=== PATIENT | female | born 1930 | race Caucasian/White ===

== ENCOUNTER 2017-04-13 15:47 | Inpatient (IN) | payer MEDICARE, BC ==
--- NOTE | 2017-04-13 16:40 | PCM.HP ---
H&P History of Present Illness - General Date of Service: 04/13/17 Admit Problem/Dx: Massive lower extremity edema Source of Information: Patient, Provider (Dr. Zaragoza) - History of Present Illness Initial Comments - Free Text/Narative: The patient is an 86-year-old lady with a history of cardiomyopathy with ejection fraction of 30-35%, grade 2 diastolic dysfunction. The patient also has sick sinus syndrome and pacemaker was suggested but the patient did not want pacemaker, angiogram or any other cardiac work up. The patient presented to the primary care's office on 13 April. About 2-3 month history of progressive lower extremity swelling. The swelling is so bad that it is up to her chest wall. It is associated with mild shortness of breath. She denies chest pain. No cough. She has been taking Lasix 20 mg daily. She is not using any compression therapy. - Related Data Allergies/Adverse Reactions: Allergies Allergy/AdvReac Type Severity Reaction Status Date / Time calcium Allergy Cannot Verified 04/13/17 16:13 Remember ezetimibe Allergy Cannot Verified 04/13/17 16:13 Remember hydrochlorothiazide Allergy Dizziness Verified 04/13/17 16:13 simvastatin Allergy Cannot Verified 04/13/17 16:13 Remember Home Medications: Home Meds Multivitamin [Multivitamins] 1 tab PO DAILY 11/09/15 [History] Psyllium [Metamucil] 0.52 gm PO DAILY 11/09/15 [History] Valsartan [Diovan] 320 mg PO DAILY 11/09/15 [History] Warfarin [Coumadin] 6 mg PO DAILY 11/09/15 [History] amLODIPine [Norvasc] 2.5 mg PO DAILY 11/09/15 [History] Furosemide [Lasix] 20 mg PO DAILY 04/13/17 [History] Non-Formulary Medication [NF Drug] 1 cap PO DAILY 04/13/17 [History] Non-Formulary Medication [NF Drug] 1 cap PO DAILY 04/13/17 [History] Non-Formulary Medication [NF Drug] 1 tab PO BEDTIME 04/13/17 [History] Non-Formulary Medication [NF Drug] 1 tab PO DAILY 04/13/17 [History] Non-Formulary Medication [NF Drug] 2 cap PO BID 04/13/17 [History] Non-Formulary Medication [NF Drug] 2 cap PO DAILY 04/13/17 [History] Non-Formulary Medication [NF Drug] 2 tab PO DAILY 04/13/17 [History] Ubidecarenone [Coenzyme Q-10] 30 mg PO DAILY 04/13/17 [History] Warfarin [Coumadin] 9 mg PO DAILY 04/13/17 [History] Past Medical History HEENT History: Reports: Cataract Cardiovascular History: Reports: Afib, High Cholesterol, Hypertension Respiratory History: Reports: None Gastrointestinal History: Reports: Bowel Obstruction, Diverticulosis, Hemorrhoids [employer] History: Musculoskeletal History: Reports: Arthritis Neurological History: Reports: None Psychiatric History: Reports: Anxiety Endocrine/Metabolic History: Reports: Diabetes, Type II Hematologic History: Reports: None Immunologic History: Reports: None Oncologic (Cancer) History: Reports: Uterine Dermatologic History: Reports: None - Infectious Disease History Infectious Disease History: Reports: Chicken Pox, Measles, Mumps, Rubella - Past Surgical History Oncologic Surgical History: Reports: Biopsy of Breast Social & Family History - Family History Cardiac: Reports: Arrhythmia, High Cholesterol, [place] Neurological: Reports: TIA Endocrine/Metabolic: Reports: Diabetes, type II Oncologic: Reports: Breast, Thyroid, Other (See Below) Other Oncologic Family History: "STOMACH CANCER" - Tobacco Use Smoking Status *Q: Never Smoker Second Hand Smoke Exposure: No - Caffeine Use Caffeine Use: Reports: Coffee - Recreational Drug Use Recreational Drug Use: No Drug Use in Last 12 Months: No H&P Review of Systems - Review of Systems: Review Of Systems: See Below General: Denies: Fever Pulmonary: Reports: Shortness of Breath (Mild, worse with activity) Cardiovascular: Reports: Edema (Massive, up to chest wall). Denies: Chest Pain Gastrointestinal: Denies: Abdominal Pain Psychiatric: Denies: Confusion Exam - Exam Exam: See Below - Vital Signs Vital Signs: Last Vital Signs Temp 36.9 C 04/13/17 16:14 Pulse 81 04/13/17 16:14 Resp 22 H 04/13/17 16:14 BP 140/85 04/13/17 16:14 Pulse Ox 95 04/13/17 16:14 Weight: 92.533 kg - Exam General: Alert, Oriented HEENT: EOMI Neck: Supple Lungs: Normal Respiratory Effort, Decreased Breath Sounds Cardiovascular: Irregular Rhythm GI/Abdominal Exam: Normal Bowel Sounds, Soft, Non-Tender Extremities: Pedal Edema (Massive edema up to chest) Skin: Warm Neuro Extensive - Mental Status: Alert, Oriented x3, Normal Mood/Affect - Patient Data Lab Results Last 24 hrs: Echo 01/02/17 Interpretation Summary Left ventricular systolic function is moderately reduced. Ejection Fraction = 30-35%. There is Grade II diastolic dysfunction. There is moderate global hypokinesis of the left ventricle. The right ventricular systolic function is mildly reduced. The left atrium is severely dilated. The right atrium is severely dilated. There is mild to moderate mitral regurgitation. There is severe tricuspid regurgitation. There is moderate to severe pulmonary hypertension. Right ventricular systolic pressure is 62 mmHg. Mild to moderate valvular aortic stenosis. Mild aortic regurgitation. Trivial pericardial effusion. Sodium 131, potassium 4.4, bicarbonate 28.5, creatinine 0.9. Total protein 6.8 Prilosec 5.2 hemoglobin 10.3 platelets 265 CXR DATE OF STUDY: April 13, 2017 PA AND LATERAL CHEST HISTORY: An 86-year-old, hypertensive, 207 pounds female with chronic atrial fibrillation and fluid retention complaining of shortness of breath. INTERPRETATION: Abnormal. Large heart with bibasilar dependent large subpulmonic pleural fluid collections when compared to August 2012, exam. No cephalization of vascular flow or alveolar edema, but cannot exclude underlying lower lobe atelectasis or even infiltrate particularly on the left. CONCLUSION: Abnormal exam. *Q Meaningful Use (ADM) - VTE *Q VTE Criteria *Q: - Stroke *Q Stroke Criteria *Q: - AMI *Q AMI Criteria *Q: - Problem List (1) Edema SNOMED Code(s): 654787331 ICD Code: R60.9 - EDEMA, UNSPECIFIED Status: Acute Current Visit: Yes (2) Afib SNOMED Code(s): 75006322 ICD Code: I48.91 - UNSPECIFIED ATRIAL FIBRILLATION Status: Acute Current Visit: Yes (3) CHF (congestive heart failure) SNOMED Code(s): 33765512 ICD Code: I50.9 - HEART FAILURE, UNSPECIFIED Status: Acute Current Visit : Yes Problem List Initiated/Reviewed/Updated: Yes Orders Last 24hrs: Active Orders 24 hr Category Date Time Status OT Evaluation and Treatment [CONS] Routine Cons 04/13/17 16:30 Ordered BASIC METABOLIC PANEL,BMP [CHEM] AM Lab 04/14/17 05:15 Ordered CBC WITH AUTO DIFF [HEME] AM Lab 04/14/17 05:15 Ordered INR,PT,PROTHROMBIN TIME [COAG] AM Lab 04/15/17 05:11 Ordered INR,PT,PROTHROMBIN TIME [COAG] AM Lab 04/16/17 05:11 Ordered INR,PT,PROTHROMBIN TIME [COAG] AM Lab 04/17/17 05:11 Ordered INR,PT,PROTHROMBIN TIME [COAG] AM Lab 04/18/17 05:11 Ordered INR,PT,PROTHROMBIN TIME [COAG] AM Lab 04/19/17 05:11 Ordered INR,PT,PROTHROMBIN TIME [COAG] AM Lab 04/20/17 05:11 Ordered Furosemide [Lasix] Med 04/13/17 17:00 Ordered 20 mg IVPUSH TID Multivitamin [Multivitamins] Med 04/14/17 09:00 Ordered 1 tab PO DAILY Valsartan [Diovan] Med 04/14/17 09:00 Ordered 320 mg PO DAILY Medication Orders Furosemide (Lasix) 20 mg IVPUSH TID [facility] Non-Formulary Medication (Multivitamin [Multivitamins]) 1 tab PO DAILY [facility] Non-Formulary Medication (Valsartan [Diovan]) 320 mg PO DAILY [facility] Assessment/Plan Comment:: 86-year-old lady with a history of sick sinus syndrome, atrial fibrillation. The patient has a history of ejection fraction 30-35% with good grade 2 diastolic dysfunction. Presented with about 30 pounds of weight gain and massive lower body edema. 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 I will stop the patient's Norvasc. Increase the patient's Lasix. Monitor electrolytes, replace them as needed Continue ARB will Not start beta evelio given to sick sinus syndrome Use compression therapy of lower extremities, consult occupational therapy for lymphedema wraps #2 hypertension Continue valsartan Increased diuretics Consider hydralazine and/or spironolactone if not well controlled #3 atrial fibrillation with sick sinus syndrome Hold off on rate control medications Continue anticoagulation with Coumadin Monitor INR daily, target INR will be 2-3 #4 DVT prophylaxis with full dose anticoagulation with Coumadin d/w dr. Zaragoza
[2017-04-13] MEDS: Furosemide 20 MG/2 ML VIAL IVPUSH SCH ×2 (16:48→20:51)
[2017-04-13] MEDS ORDERED: Zolpidem 5 MG Tab PO PRN (17:07)
[2017-04-13] MEDS ORDERED: Acetaminophen 325 MG Tab PO PRN (17:07)
[2017-04-13] MEDS: Sodium Chloride 0.9% 10 ML Syringe FLUSH PRN (20:51)
[2017-04-14 06:56] LABS: CHLORIDE,CL 98 mmol/L (101-111); SODIUM,NA 131 mmol/L (135-145)
[2017-04-14] MEDS: Insulin Aspart 100 Units/ML 3 ML Pen SUBCUT SCH ×3 (09:00→17:01)
[2017-04-14] MEDS: Psyllium 0.52 GM Cap PO SCH (09:40)
[2017-04-14] MEDS: Multivitamins,Therapeutic Tab PO SCH (09:40)
[2017-04-14] MEDS: Furosemide 20 MG/2 ML VIAL IVPUSH SCH ×3 (09:41→20:33)
--- NOTE | 2017-04-14 10:50 | PCM.PN ---
- General Info Date of Service: 04/14/17 Admission Dx/Problem (Free Text): Massive lower extremity edema Functional Status: Reports: Pain Controlled, Tolerating Diet, Ambulating, Urinating - Review of Systems General: Denies: Fever Pulmonary: Reports: Shortness of Breath (mild with activity) Cardiovascular: Denies: Chest Pain Gastrointestinal: Denies: Abdominal Pain Neurological: Denies: Confusion - Patient Data Vitals - Most Recent: Last Vital Signs Temp 37.3 C 04/14/17 04:00 Pulse 75 04/14/17 04:00 Resp 20 04/14/17 04:00 BP 115/74 04/14/17 09:38 Pulse Ox 96 04/14/17 04:00 Weight - Most Recent: 89.414 kg I&O - Last 24 Hours: Intake & Output 04/13/17 04/14/17 04/14/17 22:59 06:59 14:59 Intake Total 370 Output Total 1800 1100 Balance -1430 -1100 Lab Results Last 24 Hours: Laboratory Results - last 24 hr 04/13/17 04/14/17 04/14/17 Range/Units 21:08 06:05 06:05 WBC 3.7 L (5.0-10.0) 10^3/uL RBC 3.53 L (4.2-5.4) 10^6/uL Hgb 9.4 L (12.0-16.0) g/dL Hct 28.5 L (37.0-47.0) % MCV 80.7 (80-100) fL MCH 26.6 L (27.0-34.0) pg MCHC 33.0 (33.0-35.0) g/dL Plt Count 223 (150-450) 10^3/uL Neut % (Auto) 62.3 (42.2-75.2) % Lymph % (Auto) 17.8 L (20.5-50.1) % [place] % (Auto) 15.9 H (2-8) % Eos % (Auto) 3.2 H (1.0-3.0) % Baso % (Auto) 0.8 (0.0-1.0) % PT (9.0-12.0) SEC INR (0.9-1.2) Sodium 131 L (135-145) mmol/L Potassium 4.1 (3.6-5.0) mmol/L Chloride 98 L (101-111) mmol/L Carbon Dioxide 26.0 (21.0-31.0) mmol/L Anion Gap 11.1 BUN 16 (7-18) mg/dL Creatinine 0.8 (0.6-1.3) mg/dL Est Cr Clr Drug Dosing 40.98 mL/min Estimated GFR (MDRD) > 60 Glucose 91 (74-105) mg/dL POC Glucose 118 H (83-110) mg/dl Calcium 8.6 (8.4-10.2) mg/dl Phosphorus 4.1 (2.5-4.6) mg/dL Magnesium 2.0 (1.8-2.5) mg/dL 04/14/17 04/14/17 Range/Units 06:05 08:04 WBC (5.0-10.0) 10^3/uL RBC (4.2-5.4) 10^6/uL Hgb (12.0-16.0) g/dL Hct (37.0-47.0) % MCV (80-100) fL MCH (27.0-34.0) pg MCHC (33.0-35.0) g/dL Plt Count (150-450) 10^3/uL Neut % (Auto) (42.2-75.2) % Lymph % (Auto) (20.5-50.1) % [place] % (Auto) (2-8) % Eos % (Auto) (1.0-3.0) % Baso % (Auto) (0.0-1.0) % PT 24.6 H (9.0-12.0) SEC INR 2.4 H (0.9-1.2) Sodium (135-145) mmol/L Potassium (3.6-5.0) mmol/L Chloride (101-111) mmol/L Carbon Dioxide (21.0-31.0) mmol/L Anion Gap BUN (7-18) mg/dL Creatinine (0.6-1.3) mg/dL Est Cr Clr Drug Dosing mL/min Estimated GFR (MDRD) Glucose (74-105) mg/dL POC Glucose 98 (83-110) mg/dl Calcium (8.4-10.2) mg/dl Phosphorus (2.5-4.6) mg/dL Magnesium (1.8-2.5) mg/dL Med Orders - Current: Current Medications Acetaminophen (Tylenol) 650 mg PO Q4H PRN PRN Reason: Pain (Mild 1-3)/fever Furosemide (Lasix) 20 mg IVPUSH TID [facility] Last Admin: 04/14/17 09:41 Dose: 20 mg Insulin Aspart (Novolog) 0 unit SUBCUT TIDAC [facility] PRN Reason: Protocol Last Admin: 04/14/17 09:00 Dose: Not Given Multivitamins (Thera) 1 each PO DAILY [facility] Last Admin: 04/14/17 09:40 Dose: 1 each Psyllium Hydrophilic Mucilloid (Metamucil) 0.52 gm PO DAILY [facility] Last Admin: 04/14/17 09:40 Dose: 0.52 gm Sodium Chloride (Saline Flush) 10 ml FLUSH ASDIRECTED PRN PRN Reason: Keep Vein Open Last Admin: 04/13/17 20:51 Dose: 10 ml Valsartan (Diovan) 320 mg PO DAILY [facility] Last Admin: 04/14/17 09:38 Dose: 320 mg Warfarin Sodium (Pharmacy To Dose - Warfarin) 1 dose .XX ASDIRECTED [facility] Zolpidem Tartrate (Ambien) 5 mg PO BEDTIME PRN PRN Reason: Sleep - Exam General: Alert Neck: Supple Lungs: Clear to Auscultation, Normal Respiratory Effort GI/Abdominal Exam: Normal Bowel Sounds, Soft, Non-Tender Extremities: Pedal Edema (massive upto chest wall) Neurological: No New Focal Deficit Psy/Mental Status: Alert, Normal Affect, Normal Mood - Problem List & Annotations (1) Edema SNOMED Code(s): 834542150 Code(s): R60.9 - EDEMA, UNSPECIFIED Status: Acute Current Visit: Yes Qualifiers: Edema type: localized Qualified Code(s): R60.0 - Localized edema (2) Afib SNOMED Code(s): 57900357 Code(s): I48.91 - UNSPECIFIED ATRIAL FIBRILLATION Status: Acute Current Visit: Yes Qualifiers: Atrial fibrillation type: persistent Qualified Code(s): I48.1 - Persistent atrial fibrillation (3) CHF (congestive heart failure) SNOMED Code(s): 17710244 Code(s): I50.9 - HEART FAILURE, UNSPECIFIED Status: Acute Current Visit: Yes Qualifiers: Heart failure chronicity: acute on chronic - Problem List Review Problem List Initiated/Reviewed/Updated: Yes - My Orders Last 24 Hours: My Active Orders 04/13/17 16:30 OT Evaluation and Treatment [CONS] Routine 04/13/17 17:00 Furosemide [Lasix] 20 mg IVPUSH TID Warfarin Pharmacy to Dose [Pharmacy to Dose - Warfarin] 1 dose .XX ASDIRECTED 04/13/17 17:07 Up With Assistance [RC] ASDIRECTED Acetaminophen [Tylenol] 650 mg PO Q4H PRN Sodium Chloride 0.9% [Saline Flush] 10 ml FLUSH ASDIRECTED PRN Zolpidem [Ambien] 5 mg PO BEDTIME PRN Peripheral IV Insertion Adult [OM.PC] Routine Saline Lock Insert [OM.PC] Routine Resuscitation Status Routine 04/13/17 17:08 Patient Status [ADT] Routine Oxygen Therapy [RC] PRN VTE/DVT Education [RC] PER UNIT ROUTINE Vital Signs [RC] 04,08,12,16,20,00 04/13/17 17:09 Antiembolic Devices [RC] 08,20 Peripheral IV Care [RC] 08,20 Antiembolic Hose [OM.PC] Per Unit Routine 04/13/17 19:30 Glucose [Blood Glucose Check, Bedside] [RC] QIDACANDBED 04/13/17 Dinner 2 Gram Sodium Diet [DIET] 04/14/17 08:00 Insulin Aspart [NovoLOG] See Protocol SUBCUT TIDAC 04/14/17 09:00 Multivitamins,Therapeutic [Thera] 1 each PO DAILY Psyllium [Metamucil] 0.52 gm PO DAILY Valsartan [Diovan] 320 mg PO DAILY 04/15/17 05:11 INR,PT,PROTHROMBIN TIME [COAG] AM 04/15/17 05:15 BASIC METABOLIC PANEL,BMP [CHEM] AM CBC WITH AUTO DIFF [HEME] AM 04/16/17 05:11 INR,PT,PROTHROMBIN TIME [COAG] AM 04/17/17 05:11 INR,PT,PROTHROMBIN TIME [COAG] AM 04/18/17 05:11 INR,PT,PROTHROMBIN TIME [COAG] AM 04/19/17 05:11 INR,PT,PROTHROMBIN TIME [COAG] AM 04/20/17 05:11 INR,PT,PROTHROMBIN TIME [COAG] AM - Plan Plan:: 86-year-old lady with a history of sick sinus syndrome, atrial fibrillation. The patient has a history of ejection fraction 30-35% with good grade 2 diastolic dysfunction. Presented with about 30 pounds of weight gain and massive lower body edema. 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 stopped Norvasc. Increased the patient's Lasix. Monitor electrolytes, replace them as needed Continue ARB will Not start beta evelio given to sick sinus syndrome Use compression therapy of lower extremities #2 hypertension Continue valsartan Increased diuretics Consider hydralazine and/or spironolactone if not well controlled #3 atrial fibrillation with sick sinus syndrome Hold off on rate control medications Continue anticoagulation with Coumadin Monitor INR daily, target INR will be 2-3 #4 DVT prophylaxis with full dose anticoagulation with Coumadin
[2017-04-14] MEDS ORDERED: Warfarin 5 MG Tab PO ONE (14:00)
[2017-04-14] MEDS ORDERED: Warfarin 2 MG Tab PO ONE (14:00)
[2017-04-14] MEDS: DIGOXIN 250 MCG PO SCH (20:33)
[2017-04-15] MEDS: Insulin Aspart 100 Units/ML 3 ML Pen SUBCUT SCH ×3 (09:18→17:24)
[2017-04-15] MEDS: Psyllium 0.52 GM Cap PO SCH (09:21)
[2017-04-15] MEDS: Multivitamins,Therapeutic Tab PO SCH (09:21)
[2017-04-15] MEDS: DIGOXIN 250 MCG PO SCH (09:22)
[2017-04-15] MEDS: Furosemide 20 MG/2 ML VIAL IVPUSH SCH ×3 (09:24→20:04)
[2017-04-15] MEDS: Sodium Chloride 0.9% 10 ML Syringe FLUSH PRN ×2 (09:26→14:20)
--- NOTE | 2017-04-15 10:40 | PCM.PN ---
- General Info Date of Service: 04/15/17 Admission Dx/Problem (Free Text): Massive lower extremity edema Subjective Update: Has good urine output Losing weight but continues to have significant edema. No associated shortness of breath. The edema started the weeks before admission. No fever, no chest pain. Functional Status: Reports: Pain Controlled - Review of Systems General: Denies: Fever, Weakness Pulmonary: Denies: Shortness of Breath Cardiovascular: Denies: Chest Pain Gastrointestinal: Denies: Abdominal Pain Genitourinary: Denies: Dysuria - Patient Data Vitals - Most Recent: Last Vital Signs Temp 36.7 C 04/15/17 08:10 Pulse 87 04/15/17 08:10 Resp 20 04/15/17 08:10 BP 120/62 04/15/17 09:23 Pulse Ox 97 04/15/17 08:10 Weight - Most Recent: 85.389 kg I&O - Last 24 Hours: Intake & Output 04/14/17 04/15/17 04/15/17 22:59 06:59 14:59 Intake Total 125 200 Output Total 2000 1050 400 Balance -1875 -850 -400 Lab Results Last 24 Hours: Laboratory Results - last 24 hr 04/14/17 04/14/17 04/14/17 Range/Units 11:29 16:47 21:13 WBC (5.0-10.0) 10^3/uL RBC (4.2-5.4) 10^6/uL Hgb (12.0-16.0) g/dL Hct (37.0-47.0) % MCV (80-100) fL MCH (27.0-34.0) pg MCHC (33.0-35.0) g/dL Plt Count (150-450) 10^3/uL Neut % (Auto) (42.2-75.2) % Lymph % (Auto) (20.5-50.1) % [place] % (Auto) (2-8) % Eos % (Auto) (1.0-3.0) % Baso % (Auto) (0.0-1.0) % PT (9.0-12.0) SEC INR (0.9-1.2) Sodium (135-145) mmol/L Potassium (3.6-5.0) mmol/L Chloride (101-111) mmol/L Carbon Dioxide (21.0-31.0) mmol/L Anion Gap BUN (7-18) mg/dL Creatinine (0.6-1.3) mg/dL Est Cr Clr Drug Dosing mL/min Estimated GFR (MDRD) Glucose (74-105) mg/dL POC Glucose 101 103 133 H (83-110) mg/dl Calcium (8.4-10.2) mg/dl 04/15/17 04/15/17 04/15/17 Range/Units 05:35 05:35 05:35 WBC 3.4 L (5.0-10.0) 10^3/uL RBC 3.51 L (4.2-5.4) 10^6/uL Hgb 9.4 L (12.0-16.0) g/dL Hct 28.4 L (37.0-47.0) % MCV 80.9 (80-100) fL MCH 26.8 L (27.0-34.0) pg MCHC 33.1 (33.0-35.0) g/dL Plt Count 234 (150-450) 10^3/uL Neut % (Auto) 58.4 (42.2-75.2) % Lymph % (Auto) 21.8 (20.5-50.1) % [place] % (Auto) 15.4 H (2-8) % Eos % (Auto) 3.8 H (1.0-3.0) % Baso % (Auto) 0.6 (0.0-1.0) % PT 25.9 H (9.0-12.0) SEC INR 2.6 H (0.9-1.2) Sodium 134 L (135-145) mmol/L Potassium 3.7 (3.6-5.0) mmol/L Chloride 97 L (101-111) mmol/L Carbon Dioxide 29.0 (21.0-31.0) mmol/L Anion Gap 11.7 BUN 19 H (7-18) mg/dL Creatinine 0.9 (0.6-1.3) mg/dL Est Cr Clr Drug Dosing 36.43 mL/min Estimated GFR (MDRD) 59 Glucose 93 (74-105) mg/dL POC Glucose (83-110) mg/dl Calcium 8.6 (8.4-10.2) mg/dl 04/15/17 Range/Units 07:39 WBC (5.0-10.0) 10^3/uL RBC (4.2-5.4) 10^6/uL Hgb (12.0-16.0) g/dL Hct (37.0-47.0) % MCV (80-100) fL MCH (27.0-34.0) pg MCHC (33.0-35.0) g/dL Plt Count (150-450) 10^3/uL Neut % (Auto) (42.2-75.2) % Lymph % (Auto) (20.5-50.1) % [place] % (Auto) (2-8) % Eos % (Auto) (1.0-3.0) % Baso % (Auto) (0.0-1.0) % PT (9.0-12.0) SEC INR (0.9-1.2) Sodium (135-145) mmol/L Potassium (3.6-5.0) mmol/L Chloride (101-111) mmol/L Carbon Dioxide (21.0-31.0) mmol/L Anion Gap BUN (7-18) mg/dL Creatinine (0.6-1.3) mg/dL Est Cr Clr Drug Dosing mL/min Estimated GFR (MDRD) Glucose (74-105) mg/dL POC Glucose 108 (83-110) mg/dl Calcium (8.4-10.2) mg/dl Med Orders - Current: Current Medications Acetaminophen (Tylenol) 650 mg PO Q4H PRN PRN Reason: Pain (Mild 1-3)/fever Furosemide (Lasix) 20 mg IVPUSH TID [facility] Last Admin: 04/15/17 09:24 Dose: 20 mg Insulin Aspart (Novolog) 0 unit SUBCUT TIDAC [facility] PRN Reason: Protocol Last Admin: 04/15/17 09:18 Dose: Not Given Multivitamins (Thera) 1 each PO DAILY [facility] Last Admin: 04/15/17 09:21 Dose: 1 each Psyllium Hydrophilic Mucilloid (Metamucil) 0.52 gm PO DAILY [facility] Last Admin: 04/15/17 09:21 Dose: 0.52 gm Sodium Chloride (Saline Flush) 10 ml FLUSH ASDIRECTED PRN PRN Reason: Keep Vein Open Last Admin: 04/15/17 09:26 Dose: 10 ml Valsartan (Diovan) 320 mg PO DAILY [facility] Last Admin: 04/15/17 09:23 Dose: 320 mg Warfarin Sodium (Pharmacy To Dose - Warfarin) 1 dose .XX ASDIRECTED [facility] Warfarin Sodium (Coumadin) 5 mg PO DAILY@1400 [facility] Stop: 04/15/17 14:01 Warfarin Sodium (Coumadin) 4 mg PO DAILY@1400 [facility] Stop: 04/15/17 14:01 Zolpidem Tartrate (Ambien) 5 mg PO BEDTIME PRN PRN Reason: Sleep Discontinued Medications Digoxin (Lanoxin) 250 mcg PO DAILY [facility] Last Admin: 04/15/17 09:22 Dose: 250 mcg Warfarin Sodium (Coumadin) 5 mg PO ONETIME ONE Stop: 04/14/17 14:01 Last Admin: 04/14/17 14:32 Dose: 5 mg Warfarin Sodium (Coumadin) 4 mg PO ONETIME ONE Stop: 04/14/17 14:01 Last Admin: 04/14/17 14:32 Dose: 4 mg - Exam General: Alert, Oriented Neck: Supple Lungs: Clear to Auscultation, Normal Respiratory Effort Cardiovascular: Regular Rate, Regular Rhythm GI/Abdominal Exam: Normal Bowel Sounds, Soft, Non-Tender Extremities: Pedal Edema (up to mid chest) Skin: Warm Neurological: No New Focal Deficit Psy/Mental Status: Alert, Normal Affect, Normal Mood - Problem List & Annotations (1) Edema SNOMED Code(s): 505395394 Code(s): R60.9 - EDEMA, UNSPECIFIED Status: Acute Current Visit: Yes Qualifiers: Edema type: localized Qualified Code(s): R60.0 - Localized edema (2) Afib SNOMED Code(s): 76865118 Code(s): I48.91 - UNSPECIFIED ATRIAL FIBRILLATION Status: Acute Current Visit: Yes Qualifiers: Atrial fibrillation type: persistent Qualified Code(s): I48.1 - Persistent atrial fibrillation (3) CHF (congestive heart failure) SNOMED Code(s): 42312698 Code(s): I50.9 - HEART FAILURE, UNSPECIFIED Status: Acute Current Visit: Yes Qualifiers: Heart failure chronicity: acute on chronic - Problem List Review Problem List Initiated/Reviewed/Updated: Yes - My Orders Last 24 Hours: My Active Orders 04/15/17 14:00 Warfarin [Coumadin] 4 mg PO DAILY@1400 Warfarin [Coumadin] 5 mg PO DAILY@1400 04/16/17 05:11 INR,PT,PROTHROMBIN TIME [COAG] AM 04/16/17 05:15 BASIC METABOLIC PANEL,BMP [CHEM] AM CBC WITH AUTO DIFF [HEME] AM 04/17/17 05:11 INR,PT,PROTHROMBIN TIME [COAG] AM 04/18/17 05:11 INR,PT,PROTHROMBIN TIME [COAG] AM 04/19/17 05:11 INR,PT,PROTHROMBIN TIME [COAG] AM 04/20/17 05:11 INR,PT,PROTHROMBIN TIME [COAG] AM - Plan Plan:: 86-year-old lady with a history of sick sinus syndrome, atrial fibrillation. The patient has a history of ejection fraction 30-35% with good grade 2 diastolic dysfunction. Presented with about 30 pounds of weight gain and massive lower body edema. 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 stopped Norvasc. Increased the patient's Lasix. Monitor electrolytes, replace them as needed Renal function is stable despite diuretics Continue ARB will Not start beta evelio given to sick sinus syndrome Will not use digoxin given the history of bradycardia Use compression therapy of lower extremities #2 hypertension Continue valsartan Increased diuretics Consider hydralazine and/or spironolactone if not well controlled #3 atrial fibrillation with sick sinus syndrome Hold off on rate control medications Continue anticoagulation with Coumadin Monitor INR daily, target INR will be 2-3 #4 DVT prophylaxis with full dose anticoagulation with Coumadin
[2017-04-15] MEDS ORDERED: Warfarin 2 MG Tab PO SCH (14:00)
[2017-04-15] MEDS ORDERED: Warfarin 5 MG Tab PO SCH (14:00)
[2017-04-15] MEDS ORDERED: Albuterol/Ipratropium 3.0-0.5 MG/3 ML Neb Soln NEB PRN (21:19)
[2017-04-16] MEDS: Insulin Aspart 100 Units/ML 3 ML Pen SUBCUT SCH ×3 (08:23→16:53)
[2017-04-16] MEDS: Multivitamins,Therapeutic Tab PO SCH (08:55)
[2017-04-16] MEDS: Psyllium 0.52 GM Cap PO SCH (08:55)
[2017-04-16] MEDS: Furosemide 20 MG/2 ML VIAL IVPUSH SCH ×3 (08:56→20:00)
[2017-04-16] MEDS: Sodium Chloride 0.9% 10 ML Syringe FLUSH PRN ×2 (08:59→14:13)
--- NOTE | 2017-04-16 11:38 | PCM.PN ---
- General Info Date of Service: 04/16/17 Admission Dx/Problem (Free Text): Massive lower extremity edema Subjective Update: Has good urine output Losing weight but still continues to have significant edema. No associated shortness of breath. The edema started weeks before admission. No associated fever, no chest pain. Functional Status: Reports: Pain Controlled - Review of Systems General: Denies: Fever Pulmonary: Denies: Shortness of Breath Cardiovascular: Denies: Chest Pain Gastrointestinal: Denies: Abdominal Pain Genitourinary: Reports: Frequency. Denies: Dysuria Neurological: Denies: Confusion - Patient Data Vitals - Most Recent: Last Vital Signs Temp 37.4 C 04/16/17 08:00 Pulse 65 04/16/17 08:00 Resp 20 04/16/17 08:00 BP 124/74 04/16/17 08:56 Pulse Ox 99 04/16/17 08:00 Weight - Most Recent: 82.554 kg I&O - Last 24 Hours: Intake & Output 04/15/17 04/16/17 04/16/17 21:59 06:59 14:59 Intake Total 360 Output Total 200 Balance 160 Lab Results Last 24 Hours: Laboratory Results - last 24 hr 04/15/17 04/15/17 04/15/17 Range/Units 11:48 17:03 21:15 WBC (5.0-10.0) 10^3/uL RBC (4.2-5.4) 10^6/uL Hgb (12.0-16.0) g/dL Hct (37.0-47.0) % MCV (80-100) fL MCH (27.0-34.0) pg MCHC (33.0-35.0) g/dL Plt Count (150-450) 10^3/uL Neut % (Auto) (42.2-75.2) % Lymph % (Auto) (20.5-50.1) % Hand % (Auto) (2-8) % Eos % (Auto) (1.0-3.0) % Baso % (Auto) (0.0-1.0) % PT (9.0-12.0) SEC INR (0.9-1.2) Sodium (135-145) mmol/L Potassium (3.6-5.0) mmol/L Chloride (101-111) mmol/L Carbon Dioxide (21.0-31.0) mmol/L Anion Gap BUN (7-18) mg/dL Creatinine (0.6-1.3) mg/dL Est Cr Clr Drug Dosing mL/min Estimated GFR (MDRD) Glucose (74-105) mg/dL POC Glucose 93 115 H 104 (83-110) mg/dl Calcium (8.4-10.2) mg/dl 04/16/17 04/16/17 04/16/17 Range/Units 05:40 05:40 05:40 WBC 3.6 L (5.0-10.0) 10^3/uL RBC 3.38 L (4.2-5.4) 10^6/uL Hgb 9.1 L (12.0-16.0) g/dL Hct 27.2 L (37.0-47.0) % MCV 80.5 (80-100) fL MCH 26.9 L (27.0-34.0) pg MCHC 33.5 (33.0-35.0) g/dL Plt Count 234 (150-450) 10^3/uL Neut % (Auto) 53.3 (42.2-75.2) % Lymph % (Auto) 24.6 (20.5-50.1) % Hand % (Auto) 16.6 H (2-8) % Eos % (Auto) 4.7 H (1.0-3.0) % Baso % (Auto) 0.8 (0.0-1.0) % PT 27.0 H (9.0-12.0) SEC INR 2.7 H (0.9-1.2) Sodium 133 L (135-145) mmol/L Potassium 3.4 L (3.6-5.0) mmol/L Chloride 96 L (101-111) mmol/L Carbon Dioxide 29.0 (21.0-31.0) mmol/L Anion Gap 11.4 BUN 21 H (7-18) mg/dL Creatinine 0.9 (0.6-1.3) mg/dL Est Cr Clr Drug Dosing 36.43 mL/min Estimated GFR (MDRD) 59 Glucose 90 (74-105) mg/dL POC Glucose (83-110) mg/dl Calcium 8.5 (8.4-10.2) mg/dl 03/11/18 Range/Units 07:01 WBC (5.0-10.0) 10^3/uL RBC (4.2-5.4) 10^6/uL Hgb (12.0-16.0) g/dL Hct (37.0-47.0) % MCV (80-100) fL MCH (27.0-34.0) pg MCHC (33.0-35.0) g/dL Plt Count (150-450) 10^3/uL Neut % (Auto) (42.2-75.2) % Lymph % (Auto) (20.5-50.1) % Hand % (Auto) (2-8) % Eos % (Auto) (1.0-3.0) % Baso % (Auto) (0.0-1.0) % PT (9.0-12.0) SEC INR (0.9-1.2) Sodium (135-145) mmol/L Potassium (3.6-5.0) mmol/L Chloride (101-111) mmol/L Carbon Dioxide (21.0-31.0) mmol/L Anion Gap BUN (7-18) mg/dL Creatinine (0.6-1.3) mg/dL Est Cr Clr Drug Dosing mL/min Estimated GFR (MDRD) Glucose (74-105) mg/dL POC Glucose 101 (83-110) mg/dl Calcium (8.4-10.2) mg/dl Med Orders - Current: Current Medications Acetaminophen (Tylenol) 650 mg PO Q4H PRN PRN Reason: Pain (Mild 1-3)/fever Albuterol/Ipratropium (Duoneb 3.0-0.5 Mg/3 Ml) 3 ml NEB Q6HRRT PRN PRN Reason: sob Last Admin: 04/15/17 21:32 Dose: 3 ml Furosemide (Lasix) 20 mg IVPUSH TID [facility] Last Admin: 04/16/17 08:56 Dose: 20 mg Insulin Aspart (Novolog) 0 unit SUBCUT TIDAC [facility] PRN Reason: Protocol Last Admin: 04/16/17 08:23 Dose: Not Given Multivitamins (Thera) 1 each PO DAILY [facility] Last Admin: 04/16/17 08:55 Dose: 1 each Potassium Chloride (Klor-Con 10) 40 meq PO WITHBREAKFAST [facility] Psyllium Hydrophilic Mucilloid (Metamucil) 0.52 gm PO DAILY [facility] Last Admin: 04/16/17 08:55 Dose: 0.52 gm Sodium Chloride (Saline Flush) 10 ml FLUSH ASDIRECTED PRN PRN Reason: Keep Vein Open Last Admin: 04/16/17 08:59 Dose: 10 ml Valsartan (Diovan) 320 mg PO DAILY [facility] Last Admin: 04/16/17 08:56 Dose: 320 mg Warfarin Sodium (Pharmacy To Dose - Warfarin) 1 dose .XX ASDIRECTED [facility] Warfarin Sodium (Coumadin) 8 mg PO ONETIME ONE Stop: 04/16/17 14:01 Zolpidem Tartrate (Ambien) 5 mg PO BEDTIME PRN PRN Reason: Sleep Discontinued Medications Digoxin (Lanoxin) 250 mcg PO DAILY [facility] Last Admin: 04/15/17 09:22 Dose: 250 mcg Warfarin Sodium (Coumadin) 5 mg PO ONETIME ONE Stop: 04/14/17 14:01 Last Admin: 04/14/17 14:32 Dose: 5 mg Warfarin Sodium (Coumadin) 4 mg PO ONETIME ONE Stop: 04/14/17 14:01 Last Admin: 04/14/17 14:32 Dose: 4 mg Warfarin Sodium (Coumadin) 5 mg PO DAILY@1400 [facility] Stop: 04/15/17 14:01 Last Admin: 04/15/17 14:16 Dose: 5 mg Warfarin Sodium (Coumadin) 4 mg PO DAILY@1400 [facility] Stop: 04/15/17 14:01 Last Admin: 04/15/17 14:16 Dose: 4 mg - Exam General: Alert, Oriented Neck: Supple Lungs: Clear to Auscultation, Normal Respiratory Effort. No: Rhonchi, Wheezing Cardiovascular: Regular Rate, Regular Rhythm Extremities: Pedal Edema (upto mid chest) - Problem List & Annotations (1) Edema SNOMED Code(s): 709407371 Code(s): R60.9 - EDEMA, UNSPECIFIED Status: Acute Current Visit: Yes Qualifiers: Edema type: localized Qualified Code(s): R60.0 - Localized edema (2) Afib SNOMED Code(s): 32638211 Code(s): I48.91 - UNSPECIFIED ATRIAL FIBRILLATION Status: Acute Current Visit: Yes Qualifiers: Atrial fibrillation type: persistent Qualified Code(s): I48.1 - Persistent atrial fibrillation (3) CHF (congestive heart failure) SNOMED Code(s): 46929642 Code(s): I50.9 - HEART FAILURE, UNSPECIFIED Status: Acute Current Visit: Yes Qualifiers: Heart failure chronicity: acute on chronic - Problem List Review Problem List Initiated/Reviewed/Updated: Yes - My Orders Last 24 Hours: My Active Orders 04/15/17 21:19 RT Aerosol Therapy [RC] .PRN Albuterol/Ipratropium [DuoNeb 3.0-0.5 MG/3 ML] 3 ml NEB Q6HRRT PRN 04/16/17 12:00 Potassium Chloride [Klor-Con 10] 40 meq PO WITHBREAKFAST 04/16/17 14:00 Warfarin [Coumadin] 8 mg PO ONETIME ONE 04/17/17 05:11 INR,PT,PROTHROMBIN TIME [COAG] AM 04/17/17 05:15 BASIC METABOLIC PANEL,BMP [CHEM] AM CBC WITH AUTO DIFF [HEME] AM 04/18/17 05:11 INR,PT,PROTHROMBIN TIME [COAG] AM 04/19/17 05:11 INR,PT,PROTHROMBIN TIME [COAG] AM 04/20/17 05:11 INR,PT,PROTHROMBIN TIME [COAG] AM - Plan Plan:: 86-year-old lady with a history of sick sinus syndrome, atrial fibrillation. The patient has a history of ejection fraction 30-35% with good grade 2 diastolic dysfunction. Presented with about 30 pounds of weight gain and massive lower body edema. 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 stopped Norvasc. Increased the patient's Lasix. Monitor electrolytes, replace them as needed start spironolactone check magnesium, phos in AM Renal function is stable despite diuretics Continue ARB will Not start beta evelio given to sick sinus syndrome Will not use digoxin given the history of bradycardia Use compression therapy of lower extremities #2 hypertension Continue valsartan cont diuretics add spironolactone #3 atrial fibrillation with sick sinus syndrome Hold off on rate control medications Continue anticoagulation with Coumadin Monitor INR daily, target INR will be 2-3 #4 DVT prophylaxis with full dose anticoagulation with Coumadin
[2017-04-16] MEDS ORDERED: Potassium Chloride 10 MEQ Tab.ER PO SCH (12:00)
[2017-04-16] MEDS ORDERED: Warfarin 2 MG Tab PO ONE (14:00)
[2017-04-17 06:56] LABS: CHLORIDE,CL 95 mmol/L (101-111); SODIUM,NA 133 mmol/L (135-145)
[2017-04-17] MEDS ORDERED: Spironolactone 25 MG Tab PO SCH ×2 (09:00→10:34)
[2017-04-17] MEDS: Insulin Aspart 100 Units/ML 3 ML Pen SUBCUT SCH (09:02)
[2017-04-17] MEDS: Psyllium 0.52 GM Cap PO SCH (09:09)
[2017-04-17] MEDS: Furosemide 20 MG/2 ML VIAL IVPUSH SCH (09:09)
[2017-04-17] MEDS: Multivitamins,Therapeutic Tab PO SCH (09:09)
--- NOTE | 2017-04-17 10:47 | PCM.DCSUM1 ---
Discharge Summary - Hospital Course Free Text/Narrative:: 86-year-old lady with a history of sick sinus syndrome, atrial fibrillation. The patient has a history of ejection fraction 30-35% with good grade 2 diastolic dysfunction. Presented with about 30 pounds of weight gain and massive lower body edema. 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 stopped Norvasc. Increased the patient's Lasix. added spironolactone still weak - will benefit from walker with wheels and skis, will be able to use at home home bound - will set up homecare for monitoring weakness, diuresis, vitals with diuretics Renal function is stable despite diuretics Continue ARB will Not start beta evelio given to sick sinus syndrome Will not use digoxin given the history of bradycardia Use compression therapy of lower extremities #2 hypertension Continue valsartan cont diuretics spironolactone #3 atrial fibrillation with sick sinus syndrome Hold off on rate control medications Continue anticoagulation with Coumadin - Discharge Data Discharge Date: 04/17/17 Discharge Disposition: Home, Self-Care 01 Condition: Good - Discharge Diagnosis/Problem(s) (1) Edema SNOMED Code(s): 643832750 ICD Code: R60.9 - EDEMA, UNSPECIFIED Status: Acute Current Visit: Yes Qualifiers: Edema type: localized Qualified Code(s): R60.0 - Localized edema (2) Afib SNOMED Code(s): 03166688 ICD Code: I48.91 - UNSPECIFIED ATRIAL FIBRILLATION Status: Acute Current Visit: Yes Qualifiers: Atrial fibrillation type: persistent Qualified Code(s): I48.1 - Persistent atrial fibrillation (3) CHF (congestive heart failure) SNOMED Code(s): 77785616 ICD Code: I50.9 - HEART FAILURE, UNSPECIFIED Status: Acute Current Visit : Yes Qualifiers: Heart failure chronicity: acute on chronic - Patient Summary/Data Consults: Consultations 04/13/17 16:30 OT Evaluation and Treatment [CONS] Routine - Patient Instructions Diet: Heart Healthy Diet Activity: As Tolerated - Discharge Plan Prescriptions/Med Rec: Furosemide [Lasix] 20 mg PO BIDDIURETIC #60 tablet Spironolactone [Aldactone] 50 mg PO DAILY #30 tablet Home Medications: Home Meds Multivitamin [Multivitamins] 1 tab PO DAILY 11/09/15 [History] Psyllium [Metamucil] 0.52 gm PO DAILY 11/09/15 [History] Valsartan [Diovan] 320 mg PO DAILY 11/09/15 [History] Warfarin [Coumadin] 6 mg PO DAILY 11/09/15 [History] Non-Formulary Medication [NF Drug] 1 cap PO DAILY 04/13/17 [History] Non-Formulary Medication [NF Drug] 1 cap PO DAILY 04/13/17 [History] Non-Formulary Medication [NF Drug] 1 tab PO BEDTIME 04/13/17 [History] Non-Formulary Medication [NF Drug] 1 tab PO DAILY 04/13/17 [History] Non-Formulary Medication [NF Drug] 2 cap PO BID 04/13/17 [History] Non-Formulary Medication [NF Drug] 2 cap PO DAILY 04/13/17 [History] Non-Formulary Medication [NF Drug] 2 tab PO DAILY 04/13/17 [History] Ubidecarenone [Coenzyme Q-10] 30 mg PO DAILY 04/13/17 [History] Warfarin [Coumadin] 9 mg PO DAILY 04/13/17 [History] Furosemide [Lasix] 20 mg PO BIDDIURETIC #60 tablet 04/17/17 [Rx] Spironolactone [Aldactone] 50 mg PO DAILY #30 tablet 04/17/17 [Rx] Referrals: Lane Zaragoza MD [Primary Care Provider] - (in 2-3 days) - Discharge Summary/Plan Comment DC Time >30 min.: No - General Info Date of Service: 04/17/17 Admission Dx/Problem (Free Text: Massive lower extremity edema Subjective Update: Has good urine output Losing weight but still continues to have significant edema. No associated shortness of breath. up and steady with walker - Review of Systems General: Reports: Weakness. Denies: Fever Pulmonary: Denies: Shortness of Breath Cardiovascular: Denies: Chest Pain Genitourinary: Reports: Frequency. Denies: Dysuria Neurological: Denies: Confusion - Patient Data Vitals - Most Recent: Last Vital Signs Temp 36.8 C 04/17/17 08:12 Pulse 75 04/17/17 08:12 Resp 20 04/17/17 08:12 BP 113/61 04/17/17 09:07 Pulse Ox 98 04/17/17 08:12 Weight - Most Recent: 80.286 kg I&O - Last 24 hours: Intake & Output 04/16/17 04/17/17 04/17/17 22:59 06:59 14:59 Intake Total 360 300 425 Output Total 1100 1600 Balance -740 -1300 425 Lab Results - Last 24 hrs: Laboratory Results - last 24 hr 04/16/17 04/16/17 04/16/17 Range/Units 11:36 16:42 20:46 WBC (5.0-10.0) 10^3/uL RBC (4.2-5.4) 10^6/uL Hgb (12.0-16.0) g/dL Hct (37.0-47.0) % MCV (80-100) fL MCH (27.0-34.0) pg MCHC (33.0-35.0) g/dL Plt Count (150-450) 10^3/uL Neut % (Auto) (42.2-75.2) % Lymph % (Auto) (20.5-50.1) % [place] % (Auto) (2-8) % Eos % (Auto) (1.0-3.0) % Baso % (Auto) (0.0-1.0) % PT (9.0-12.0) SEC INR (0.9-1.2) Sodium (135-145) mmol/L Potassium (3.6-5.0) mmol/L Chloride (101-111) mmol/L Carbon Dioxide (21.0-31.0) mmol/L Anion Gap BUN (7-18) mg/dL Creatinine (0.6-1.3) mg/dL Est Cr Clr Drug Dosing mL/min Estimated GFR (MDRD) Glucose (74-105) mg/dL POC Glucose 96 122 H 121 H (83-110) mg/dl Calcium (8.4-10.2) mg/dl Phosphorus (2.5-4.6) mg/dL Magnesium (1.8-2.5) mg/dL 04/17/17 04/17/17 04/17/17 Range/Units 06:10 06:10 06:10 WBC 3.7 L (5.0-10.0) 10^3/uL RBC 3.54 L (4.2-5.4) 10^6/uL Hgb 9.5 L (12.0-16.0) g/dL Hct 28.4 L (37.0-47.0) % MCV 80.2 (80-100) fL MCH 26.8 L (27.0-34.0) pg MCHC 33.5 (33.0-35.0) g/dL Plt Count 226 (150-450) 10^3/uL Neut % (Auto) 54.4 (42.2-75.2) % Lymph % (Auto) 23.9 (20.5-50.1) % [place] % (Auto) 16.6 H (2-8) % Eos % (Auto) 4.6 H (1.0-3.0) % Baso % (Auto) 0.5 (0.0-1.0) % PT 30.5 H (9.0-12.0) SEC INR 3.0 H (0.9-1.2) Sodium 133 L (135-145) mmol/L Potassium 3.5 L (3.6-5.0) mmol/L Chloride 95 L (101-111) mmol/L Carbon Dioxide 30.0 (21.0-31.0) mmol/L Anion Gap 11.5 BUN 22 H (7-18) mg/dL Creatinine 0.8 (0.6-1.3) mg/dL Est Cr Clr Drug Dosing 40.98 mL/min Estimated GFR (MDRD) > 60 Glucose 97 (74-105) mg/dL POC Glucose (83-110) mg/dl Calcium 8.7 (8.4-10.2) mg/dl Phosphorus 4.1 (2.5-4.6) mg/dL Magnesium 1.8 (1.8-2.5) mg/dL 04/17/17 Range/Units 07:36 WBC (5.0-10.0) 10^3/uL RBC (4.2-5.4) 10^6/uL Hgb (12.0-16.0) g/dL Hct (37.0-47.0) % MCV (80-100) fL MCH (27.0-34.0) pg MCHC (33.0-35.0) g/dL Plt Count (150-450) 10^3/uL Neut % (Auto) (42.2-75.2) % Lymph % (Auto) (20.5-50.1) % [place] % (Auto) (2-8) % Eos % (Auto) (1.0-3.0) % Baso % (Auto) (0.0-1.0) % PT (9.0-12.0) SEC INR (0.9-1.2) Sodium (135-145) mmol/L Potassium (3.6-5.0) mmol/L Chloride (101-111) mmol/L Carbon Dioxide (21.0-31.0) mmol/L Anion Gap BUN (7-18) mg/dL Creatinine (0.6-1.3) mg/dL Est Cr Clr Drug Dosing mL/min Estimated GFR (MDRD) Glucose (74-105) mg/dL POC Glucose 98 (83-110) mg/dl Calcium (8.4-10.2) mg/dl Phosphorus (2.5-4.6) mg/dL Magnesium (1.8-2.5) mg/dL Med Orders - Current: Current Medications Acetaminophen (Tylenol) 650 mg PO Q4H PRN PRN Reason: Pain (Mild 1-3)/fever Albuterol/Ipratropium (Duoneb 3.0-0.5 Mg/3 Ml) 3 ml NEB Q6HRRT PRN PRN Reason: sob Last Admin: 04/15/17 21:32 Dose: 3 ml Furosemide (Lasix) 20 mg PO BIDDIURETIC [facility] Insulin Aspart (Novolog) 0 unit SUBCUT TIDAC [facility] PRN Reason: Protocol Last Admin: 04/17/17 09:02 Dose: Not Given Multivitamins (Thera) 1 each PO DAILY [facility] Last Admin: 04/17/17 09:09 Dose: 1 each Psyllium Hydrophilic Mucilloid (Metamucil) 0.52 gm PO DAILY [facility] Last Admin: 04/17/17 09:09 Dose: 0.52 gm Sodium Chloride (Saline Flush) 10 ml FLUSH ASDIRECTED PRN PRN Reason: Keep Vein Open Last Admin: 04/16/17 14:13 Dose: 10 ml Spironolactone (Aldactone) 50 mg PO DAILY [facility] Valsartan (Diovan) 320 mg PO DAILY [facility] Last Admin: 04/17/17 09:07 Dose: 320 mg Warfarin Sodium (Pharmacy To Dose - Warfarin) 1 dose .XX ASDIRECTED [facility] Zolpidem Tartrate (Ambien) 5 mg PO BEDTIME PRN PRN Reason: Sleep Discontinued Medications Digoxin (Lanoxin) 250 mcg PO DAILY [facility] Last Admin: 04/15/17 09:22 Dose: 250 mcg Furosemide (Lasix) 20 mg IVPUSH TID [facility] Last Admin: 04/17/17 09:09 Dose: 20 mg Potassium Chloride (Klor-Con 10) 40 meq PO WITHBREAKFAST [facility] Spironolactone (Aldactone) 25 mg PO DAILY [facility] Last Admin: 04/17/17 09:09 Dose: 25 mg Warfarin Sodium (Coumadin) 5 mg PO ONETIME ONE Stop: 04/14/17 14:01 Last Admin: 04/14/17 14:32 Dose: 5 mg Warfarin Sodium (Coumadin) 4 mg PO ONETIME ONE Stop: 04/14/17 14:01 Last Admin: 04/14/17 14:32 Dose: 4 mg Warfarin Sodium (Coumadin) 5 mg PO DAILY@1400 [facility] Stop: 04/15/17 14:01 Last Admin: 04/15/17 14:16 Dose: 5 mg Warfarin Sodium (Coumadin) 4 mg PO DAILY@1400 [facility] Stop: 04/15/17 14:01 Last Admin: 04/15/17 14:16 Dose: 4 mg Warfarin Sodium (Coumadin) 8 mg PO ONETIME ONE Stop: 04/16/17 14:01 Last Admin: 04/16/17 14:10 Dose: 8 mg - Exam General: Reports: Alert, Oriented Lungs: Reports: Normal Respiratory Effort. Denies: Rales, Wheezing Cardiovascular: Reports: Regular Rate, Regular Rhythm Extremities: Normal Inspection, Pedal Edema (upto thigh) Skin: Reports: Warm, Dry Psy/Mental Status: Reports: Alert, Normal Affect, Normal Mood *Q Meaningful Use (DIS) - VTE *Q VTE Criteria *Q: - Stroke *Q Stroke Criteria *Q: - AMI *Q AMI Criteria *Q:
[2017-04-17 11:11] VITALS: BP 115/55
[2017-04-17] MEDS ORDERED: Furosemide 20 MG Tab PO SCH (14:00)
[2017-04-17] MEDS ORDERED: Warfarin 2 MG Tab PO ONE (14:00)
== END 2017-04-17 11:00 | disposition home or self-care (01) | DRG 308 ==
LOC: UNDOADMIN 15:47 → DL.MS 15:47
PROVIDERS: ADMIT Internal Medicine; ATTEND Internal Medicine
DX: I48.91 Unspecified atrial fibrillation (principal); I50.41 Acute combined systolic (congestive) and diastolic (congestive) heart failure; I11.0 Hypertensive heart disease with heart failure; I49.5 Sick sinus syndrome; E78.00 Pure hypercholesterolemia, unspecified; E11.9 Type 2 diabetes mellitus without complications; F41.9 Anxiety disorder, unspecified; M19.90 Unspecified osteoarthritis, unspecified site; Z88.8 Allergy status to other drugs, medicaments and biological substances; Z79.01 Long term (current) use of anticoagulants; Z79.899 Other long term (current) drug therapy
CPT/HCPCS: 36415; 80048; 82962; 83735; 84100; 85025; 85610; 94640; A9270-GY; J1815-GY; J1940; J7050

== ENCOUNTER 2018-04-16 13:19 | Inpatient (IN) | payer MEDICARE, BC ==
[2018-04-16] MEDS ORDERED: Ondansetron 4 MG Tab.DIS PO PRN (14:00)
[2018-04-16] MEDS ORDERED: Polyethylene Glycol 3350 Powder 17 GM Packet PO PRN (15:00)
[2018-04-16] MEDS ORDERED: Meclizine 12.5 MG Tab PO PRN (15:00)
[2018-04-16] MEDS ORDERED: [UNRECOGNIZED DRUG - REMARK] PO ONE (15:00)
[2018-04-16] MEDS ORDERED: Magnesium Hydroxide 400 MG/5 ML Susp 30 ML Cup PO PRN (15:00)
[2018-04-16] MEDS ORDERED: Acetaminophen/oxyCODONE 325-5 MG Tab PO PRN (15:00)
[2018-04-16] MEDS: Furosemide 40 MG/4 ML VIAL IVPUSH SCH (15:48)
[2018-04-16] MEDS ORDERED: Warfarin 2 MG Tab PO ONE (16:00)
[2018-04-16] MEDS: Acetaminophen 325 MG Tab PO PRN (16:18)
--- NOTE | 2018-04-16 16:51 | CT ---
Clinical history: 87-year-old female injured in fall. TECHNIQUE: Volume acquisition of data emergency unenhanced CT scan of the head and brain obtained while the patient was lying supine on the Siemens multi slice scanner [place], [place]. All data archived in the PACS system for storage, reformatting axial/sagittal/coronal planes and study (bone/brain windows). Interpretation: 1. Uniformly thick bony calvarium without sign of skull fracture, underlying brain contusion or epidural/subdural hematoma. 2. Prominent symmetric age appropriate cerebral cortical atrophy with underlying mirror-image normal ventricular system. 3. Scattered microvascular ischemic changes but no appreciable or significant stroke (infarct) and no sign of acute intracerebral/intraventricular/subarachnoid bleed. 4. Cerebellar atrophy. Brainstem unremarkable. 5. Symmetric clear pneumatization of the paranasal and mastoid sinuses. Nasal septum is straight in the midline. CONCLUSION: No sign of acute fracture or closed head injury. Atrophy and microvascular ischemic changes.
--- NOTE | 2018-04-16 16:55 | CT ---
Clinical history: 87-year-old female injured in fall. TECHNIQUE: Volume acquisition of data emergency unenhanced CT scan of the pelvis, hips and proximal femurs. All data archived in the PACS system [facility] for storage, reformatting axial/sagittal/coronal planes and study. Interpretation: Densely calcified markedly ectatic aortoiliac vessels. 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 Symmetric age-appropriate spacing SI and hip joints. No sign of acute pelvic or either hip fracture/dislocation. No foreign bodies appreciated in this patient who appears to have subcutaneous edema, anterior abdominal wall (anasarca). CONCLUSION: No pelvic fractures or fracture/dislocation either hip. 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
--- NOTE | 2018-04-16 20:49 | HP ---
CHIEF COMPLAINT: Increasing shortness of breath, weakness, tiredness. HISTORY OF PRESENTING ILLNESS: Ms. 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 At this time, the patient says that for the last 1 month, she has been experiencing increasing shortness of breath. She grades the shortness of breath as 6/10 in intensity, which gets aggravated on exertion and also she is unable to lie flat on the bed, not associated with any chest pain. Denies any fevers or chills in the last few days. No complaints of nausea, vomiting, or diarrhea in the last few days. No complaints of abdominal pain. The patient also fell on that is 4 days back. She was trying to walk around the hallway with the help of the cane and then slipped and fell onto the face and she has a bruising on her face. She denies any loss of consciousness and her sister who stays along with her in the home helped her to get up and she is able to ambulate well without any difficulty thereafter but she complains of increasing weakness. The patient denied any history of chest pains on exertion, has mild dyspnea on exertion. No history of orthopnea or paroxysmal nocturnal dyspnea in the past except for the last 1 month. Denies any hematemesis or hematochezia or melenic stools. Normal bowel and bladder habits otherwise. REVIEW OF SYSTEMS: A complete review of system including skin, ear, nose, and throat, cardiovascular system, respiratory system, gastrointestinal system, genitourinary system, hematology, oncology, neurology, allergy, immunology, constitutional were all evaluated and were negative except for the above-said notes. 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 Internal hemorrhoids, chronic anticoagulation. PAST SURGICAL HISTORY: Significant for tonsillectomy and adenoidectomy, hysterectomy, cholecystectomy. FAMILY HISTORY: Significant for diabetes and cerebrovascular accident in her mother, stomach cancer in her father. Diabetes and hyperlipidemia in her sister and thyroid and breast cancer in her sister. SOCIAL HISTORY: The patient denied any history of smoking tobacco. No history of alcohol intake. ALLERGIES: The patient noted to have allergies to hydrochlorothiazide, simvastatin. HOME MEDICATIONS: Include: 1. Coumadin 3 mg and 6 mg. 2. Meclizine 12.5 mg 3 times a day as needed. 3. Levothyroxine 25 mcg daily. 4. Avapro 300 mg daily. 5. Lasix 20 mg twice a day. PHYSICAL EXAMINATION: General: The patient is well oriented to time, place, and person. Follows commands spontaneously. Cardiovascular System: S1, S2 heard with normal intensity. Grade 3/6 systolic murmur appreciated. Mildly elevated JVD. Respiratory System: Clear to auscultation bilaterally except for mild crepitations at the bases. No wheeze. Abdomen: Soft. Bowel sounds positive. Nontender. No rigidity. Extremities: 2 to 3+ edema noted bilateral lower extremity. Skin: Suggestive of chronic lymphedema. Neurology: No gross focal neurological deficits. DIAGNOSTIC DATA: Sodium 139, potassium 4.5, chloride 102, bicarb 29.2, BUN 35, creatinine 1.3, glucose 124. INR 2.5. WBC 3.7, hemoglobin 9.3, hematocrit 28.5, platelet count 175. Chest x-ray shows evidence of possible pulmonary venous congestion. Pelvic x-ray did not show any evidence of acute fracture. Marginal osteophyte formation with minimally displaced fracture much less likely. There is clinical correlation for occult fracture, CT or limited MRI is recommended. ASSESSMENT: 1. Acute on chronic congestive heart failure secondary to systolic and diastolic dysfunction with ejection fraction of 30% to 35%. 2. Hypertension. 3. Hyperlipidemia. 4. Type 2 diabetes mellitus. 5. Chronic anticoagulation with Coumadin. 6. Recent fall. PLAN: 1. Acute on chronic congestive heart failure. The patient presents with increasing orthopnea and dyspnea on exertion. She is noted to have 2 to 3+ edema to the lower extremities. We will get a BNP at this time. Her echocardiogram was dated back to 2016, so one might consider getting in a 2D echocardiogram especially when she has a murmur, at 3/6 systolic murmur appreciated in the aortic area. Her ejection fraction was down to 30% to 35% at that time. Grade 2 diastolic dysfunction. We will have her on IV Lasix 40 mg q.12 hourly. We will closely monitor input, output, and daily weights. 2. Type 2 diabetes mellitus. We will check her fingersticks with each meals, have her on supplemental scale insulin as needed for additional coverage of her blood glucose. 3. Lymphedema. The patient claims that she had a lymph node dissection in the past, at [place] many years back. Could be resulting from lymphedema also. We will have occupational therapy evaluate and treat the patient for lymphedema wraps. 4. Fall. The patient recently had a fall and has bruising to her face. We will get a CT scan of the head and also a CT scan of the pelvis to make sure patient does not have an occult fracture. She is complaining of increasing weakness and difficulty ambulation. 5. DVT prophylaxis. She is currently on Coumadin, continue the same. 6. Chronic kidney disease, remains stable. Try to avoid nephrotoxic agents. Dose adjust medications for renal function. Avoid any aggressive diuresis. 7. Code status, the patient wants to be do not resuscitate, do not intubate. 8. Discussed with Dr. Graves regarding the plan of care. Reviewed the labs and medications. Reviewed the old charts. [facility] /[id number]
[2018-04-16] MEDS ORDERED: Docusate Sodium 100 MG Cap PO PRN (21:00)
[2018-04-16] MEDS: Sodium Chloride 0.9% 10 ML Syringe FLUSH PRN (21:30)
[2018-04-17] MEDS: Levothyroxine 50 MCG Tab PO SCH (05:18)
[2018-04-17] MEDS ORDERED: Levothyroxine 25 MCG Tab PO SCH (06:00)
[2018-04-17 07:04] LABS: ANION GAP 15.2
[2018-04-17] MEDS: Furosemide 40 MG/4 ML VIAL IVPUSH SCH (07:57)
[2018-04-17] MEDS: Psyllium 0.52 GM Cap PO SCH (08:00)
[2018-04-17] MEDS: Multivitamins,Therapeutic Tab PO SCH (08:00)
[2018-04-17] MEDS ORDERED: Irbesartan 150 MG Tab PO SCH (09:00)
[2018-04-17] MEDS ORDERED: Albumin 25% 12.5 GM/50 ML BAG IV ONE (10:46)
[2018-04-17] MEDS ORDERED: Warfarin 2 MG Tab PO ONE (14:00)
--- NOTE | 2018-04-17 16:18 | PN ---
DATE: 04/17/2018 SUBJECTIVE: Mrs. Susy Hein is an 87-year-old female with medical history significant for hypertension; hyperlipidemia; chronic congestive heart failure; systolic and diastolic dysfunction; chronic atrial fibrillation, on chronic anticoagulation, history of lymph node resection in the pelvic area in the past leading to chronic lymphedema to the lower extremities, admitted with acute-on- chronic congestive heart failure. For the last 24 hours, the patient was started on Lasix. She is noted to have low blood pressure this morning. She denies any chest pain, no shortness of breath, no abdominal pain, no nausea, no vomiting, no diarrhea. The patient had a CT scan of the head and CT scan of the pelvis yesterday which were all within normal limits. No acute findings noted. REVIEW OF SYSTEMS: Cardiovascular, respiratory, gastrointestinal, neurology, and constitutional were all evaluated. PHYSICAL EXAMINATION: Vital Signs: Temperature of 99.1, pulse of 40, blood pressure 101/53, respiratory rate of 18, saturating at 95%. General Appearance: The patient is alert and oriented to time, place, and person. Follows commands spontaneously. Cardiovascular System: S1 and S2 heard with normal intensity. Grade 3/6 systolic murmur appreciated. Respiratory System: Clear to auscultation bilaterally. Abdomen: Soft. Bowel sounds are positive. Nontender. No rigidity. Extremities: 3+ edema noted in bilateral lower extremities. MEDICATIONS: Reviewed. 1. Continue with the Lasix, change it to 40 mg IV daily. 2. Levothyroxine 50 mcg daily. 3. Meclizine 12.5 mg three times a day as needed for nausea. 4. Percocet 5/325 mg as needed for pain. 5. Coumadin, Pharmacy to dose for therapeutic INR of 2 to 3. LABORATORY DATA: Reviewed: WBC 3.4, hemoglobin 9, hematocrit 28, platelet count 176. INR 2.3. Sodium 134, potassium 4.2, chloride 99, bicarb 24, BUN 40, creatinine 1.3. Troponin 0.03. ASSESSMENT: 1. Colfr-rs-tkadjuw congestive heart failure secondary to systolic and diastolic dysfunction with an ejection fraction of 30% to 35%. 2. Hypertension. 3. Hyperlipidemia. 4. Type 2 diabetes mellitus. 5. Chronic anticoagulation. 6. Chronic lymphedema to the lower extremities. PLAN: 1. Zhihb-pc-xvvazvv congestive heart failure: The patient was started on Lasix 40 mg q.12 hourly. She is noted to have low blood pressure this morning. We will change the Lasix to 40 mg daily. We will give her a dose of albumin. Her edema could also be resulting from lymphedema, so we will be cautious regarding diuresis. Try to maintain euvolemic status. We will also get a 2D echocardiogram because her previous echocardiogram was back in 2017. 2. Type 2 diabetes mellitus: Well controlled. The patient's blood sugars are in acceptable range. No need for further treatments at this time. 3. Lymphedema: We will get Occupational Therapy for lymphedema wraps. The patient had lymph node dissection in the past which could have been leading to this risk. 4. Fall: The patient had a fall few days prior to coming to the hospital. We did a CT scan of the head and also CT scan of the pelvis which are within normal limits. No acute fractures and no acute bleed noted. 5. Deep venous thrombosis prophylaxis: Continue with the Coumadin. 6. Chronic kidney disease, remains stable. Try to avoid nephrotoxic agents. Dose adjust medications for renal function. Try to avoid any hypotensive episodes. [facility] /[id number]
[2018-04-17] MEDS: Sodium Chloride 0.9% 10 ML Syringe FLUSH PRN (21:33)
[2018-04-17] MEDS: Acetaminophen 325 MG Tab PO PRN (23:31)
[2018-04-18] MEDS: Levothyroxine 50 MCG Tab PO SCH (06:16)
[2018-04-18 07:07] LABS: ANION GAP 14.8
[2018-04-18] MEDS: Psyllium 0.52 GM Cap PO SCH (08:28)
[2018-04-18] MEDS: Sodium Chloride 0.9% 10 ML Syringe FLUSH PRN (08:29)
[2018-04-18] MEDS: Multivitamins,Therapeutic Tab PO SCH (08:29)
[2018-04-18] MEDS ORDERED: Furosemide 40 MG/4 ML VIAL IVPUSH SCH (09:00)
[2018-04-18 12:28] VITALS: BP 100/55
[2018-04-18] MEDS ORDERED: Warfarin 2 MG Tab PO ONE (14:00)
[2018-04-18] MEDS: Acetaminophen 325 MG Tab PO PRN (14:16)
--- NOTE | 2018-04-18 21:42 | DISCH ---
ADMITTING DIAGNOSES: 1. Sduxn-pi-jvvetfq congestive heart failure with systolic and diastolic dysfunction. 2. Hypertension. 3. Hyperlipidemia. 4. Chronic anticoagulation with Coumadin. 5. Recent fall prior to admission. DISCHARGE DIAGNOSES: 1. Gnsuv-eu-tsijlnr congestive heart failure with biventricular failure, both left and right ventricular failure with systolic dysfunction with ejection fraction of less than 25% with global hypokinesis. 2. Severe valvular heart disease, resulting in moderate aortic regurgitation, bimgmewo-qn-iwtlfn mitral regurgitation, and severe tricuspid regurgitation. 3. Biatrial enlargement. 4. Chronic anticoagulation with Coumadin. 5. Recent fall with normal CT head and normal CT pelvis. HISTORY OF PRESENTING ILLNESS: Mrs. 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 The patient was started on IV Lasix which resulted in low blood pressure. She received IV albumin, and her blood pressure seems to be controlled. We did an echocardiogram on this admission which showed evidence of severely decreased left ventricular ejection fraction of less than 25% with global hypokinesis with right ventricular moderately reduced systolic function, biatrial enlargement, moderate aortic regurgitation, wwxglubw-pa-sgsgsf mitral regurgitation, and severe tricuspid regurgitation. She would need further workup with Cardiology secondary to biventricular failure and severely decreased ejection fraction of less than 25% to see if the patient would benefit from any AICD treatment or optimization of her medical treatment plan or if she needs any coronary angiogram to explain for her severe global hypokinesis to make sure the patient does not have any ischemic cardiomyopathy. The patient was explained about the treatment plans and transfer, which she understands and verbalized the same and would like to be transferred to higher level of care for Cardiology evaluation. She remained hemodynamically stable on this admission. She remained symptomatic at this time with dyspnea on exertion, so she is being transferred to [facility] for cardiac evaluation. DISCHARGE MEDICATIONS: Include: 1. Lasix 20 mg twice a day. She will be started on IV Lasix upon admission to [facility]. 2. Avapro 300 mg daily. 3. Levothyroxine increased to 50 mcg daily. 4. Meclizine 12.5 mg as needed for nausea and dizziness. 5. Multivitamin 1 tablet 1 daily. 6. Psyllium 0.52 g daily. 7. Coenzyme Q10 30 mg daily. 8. Coumadin 3 mg on Monday and Monday and 6 mg on all other days. PHYSICAL EXAMINATION: On the day of discharge: Vital Signs: Temperature of 98.3, pulse of 66, blood pressure 129/65, respiratory rate of 18, and saturating at 98%. General Appearance: The patient is well oriented to time, place, and person. Follows commands spontaneously. Cardiovascular System: S1 and S2 heard with normal intensity. No gallops. A grade 3/6 systolic murmur appreciated. Respiratory System: Clear to auscultation bilaterally except for mild crepitations at the bases. No wheeze. Abdomen: Soft. Bowel sounds positive. Nontender. No rigidity. Extremities: Edema of 2+ noted in the bilateral lower extremities. CONDITION ON ADMISSION: Poor. CONDITION ON DISCHARGE: Stable. DISPOSITION: Discharged to [facility] for Cardiology evaluation. ACTIVITY: As tolerated. DIET: Cardiac healthy diet. FOLLOWUP: Follow up with the primary care physician in 1 week post discharge from [facility]. TIME SPENT: Spent over 35 minutes of time in evaluating and treating this patient and making discharge plans. [facility] /[id number]
== END 2018-04-18 15:05 | DRG 291 ==
LOC: DL.MS 13:19 → UNDOADMIN 13:19 → DL.MS 14:26
PROVIDERS: ADMIT Internal Medicine; ATTEND Internal Medicine
DX: I13.0 Hypertensive heart and chronic kidney disease with heart failure and stage 1 through stage 4 chronic kidney disease, or unspecified chronic kidney disease (principal); I50.43 Acute on chronic combined systolic (congestive) and diastolic (congestive) heart failure; Z66 Do not resuscitate; N18.9 Chronic kidney disease, unspecified; E11.22 Type 2 diabetes mellitus with diabetic chronic kidney disease; E78.5 Hyperlipidemia, unspecified; I08.3 Combined rheumatic disorders of mitral, aortic and tricuspid valves; I48.2 Chronic atrial fibrillation; E11.9 Type 2 diabetes mellitus without complications; I89.0 Lymphedema, not elsewhere classified; S00.83XA Contusion of other part of head, initial encounter; W19.XXXA Unspecified fall, initial encounter; Z79.01 Long term (current) use of anticoagulants; Z90.49 Acquired absence of other specified parts of digestive tract; Z90.710 Acquired absence of both cervix and uterus; Z88.8 Allergy status to other drugs, medicaments and biological substances; Z79.899 Other long term (current) drug therapy
CPT/HCPCS: 36415; 70450; 72192; 80048; 83735; 83880; 84100; 84484; 85027; 85610; 93306; 97110-GP; 97116-GP; 97140-GO; 97162-GP; 97165-GO; A9270-GY; J1940; P9047

== ENCOUNTER 2018-04-27 14:07 | Emergency (ER) | payer MEDICARE, BC ==
[2018-04-27 14:22] VITALS: BP 110/71
--- NOTE | 2018-04-27 14:23 | EDM.PDOC ---
ED HPI GENERAL MEDICAL PROBLEM - General Chief Complaint: Abdominal Pain Stated Complaint: STOMACH BLOCKAGE? [id number] Time Seen by Provider: 04/27/18 14:23 Source of Information: Reports: Patient, RN, RN Notes Reviewed History Limitations: Reports: No Limitations - History of Present Illness INITIAL COMMENTS - FREE TEXT/NARRATIVE: Pt to ER with c/o abdominal pain. Patient states she has not had a BM in 3 days. Last BM was very small and hard. Patient states today she began vomiting fecal appearing/smelling vomitus. Patient states she has had a bowel obstruction in the past. Patient has healing ecchymosis on the face. She states she had a fall about 2 weeks ago. Patient states a history of CHF with edematous lower extremities. Onset: Gradual Duration: Constant, Getting Worse Location: Reports: Abdomen abdominal Pain Score (Numeric/FACES): 10 - Related Data Allergies Allergy/AdvReac Type Severity Reaction Status Date / Time calcium Allergy Cannot Verified 04/27/18 14:33 Remember ezetimibe Allergy Cannot Verified 04/27/18 14:33 Remember hydrochlorothiazide Allergy Dizziness Verified 04/27/18 14:33 simvastatin Allergy Cannot Verified 04/27/18 14:33 Remember Home Meds: Home Meds Multivitamin [Multivitamins] 1 tab PO DAILY 11/09/15 [History] Psyllium [Metamucil] 0.52 gm PO DAILY 11/09/15 [History] Warfarin [Coumadin] 6 mg PO .MONTUETHURFRISAT 11/09/15 [History] Ubidecarenone [Coenzyme Q-10] 30 mg PO DAILY 04/13/17 [History] Irbesartan [Avapro] 300 mg PO DAILY 04/16/18 [History] Warfarin [Coumadin] 3 mg PO .SUNWED 04/16/18 [History] Levothyroxine Sodium [Levo-T] 50 mcg PO DAILY #30 tablet 04/18/18 [Rx] Bumetanide 1 mg PO DAILY 04/27/18 [History] Past Medical History HEENT History: Reports: Cataract, Impaired Vision Cardiovascular History: Reports: Afib, Heart Failure, High Cholesterol, Hypertension Respiratory History: Reports: None Gastrointestinal History: Reports: Bowel Obstruction, Diverticulosis, Hemorrhoids [employer] History: Musculoskeletal History: Reports: Arthritis Neurological History: Reports: None Psychiatric History: Reports: Anxiety Endocrine/Metabolic History: Reports: Diabetes, Type II, Hypothyroidism Hematologic History: Reports: None Immunologic History: Reports: None Oncologic (Cancer) History: Reports: Uterine Dermatologic History: Reports: None - Infectious Disease History Infectious Disease History: Reports: Chicken Pox, Measles, Mumps - Past Surgical History Head Surgeries/Procedures: Reports: None HEENT Surgical History: Reports: Cataract Surgery, Tonsillectomy GI Surgical History: Reports: Appendectomy, Cholecystectomy Female Surgical History: Reports: Hysterectomy, Other (See Below) Other Female Surgeries/Procedures: lymph node removal Oncologic Surgical History: Reports: Biopsy of Breast Social & Family History - Family History Family Medical History: Noncontributory Cardiac: Reports: Arrhythmia, High Cholesterol, [place] Neurological: Reports: TIA Endocrine/Metabolic: Reports: Diabetes, type II Oncologic: Reports: Breast, Thyroid, Other (See Below) Other Oncologic Family History: "STOMACH CANCER" - Tobacco Use Smoking Status *Q: Never Smoker - Caffeine Use Caffeine Use: Reports: Coffee - Recreational Drug Use Recreational Drug Use: No ED ROS GENERAL - Review of Systems Review Of Systems: ROS reveals no pertinent complaints other than HPI. ED EXAM, GI/ABD - Physical Exam Exam: See Below Exam Limited By: No Limitations General Appearance: Alert, WD/WN, Mild Distress Eyes: Bilateral: Normal Appearance (racoon eyes from fall 2 weeks ago) Ears: Normal External Exam, Hearing Grossly Normal Nose: Normal Inspection Throat/Mouth: Normal Inspection, Normal Voice, No Airway Compromise Head: Normocephalic, Facial Tenderness, Other (facial ecchymosis from fall 2 weeks ago) Neck: Normal Inspection Respiratory/Chest: No Respiratory Distress, Decreased Breath Sounds, Crackles ( Left upper lobe) Cardiovascular: Normal Peripheral Pulses, Systolic Murmur, Irregularly Irregular GI/Abdominal Exam: Distended, Rigid, Abnormal Bowel Sounds (hyperresonnance in the left upper/lower quadrants, tinkling ). No: Normal Bowel Sounds (Female) Exam: Deferred Rectal (Female) Exam: Deferred Back Exam: Normal Inspection, Decreased Range of Motion Extremities: Pedal Edema, Limited Range of Motion Neurological: Alert, Oriented Psychiatric: Normal Mood, Flat Affect Skin Exam: Warm, Dry, Intact Lymphatic: No Adenopathy Course - Vital Signs Last Recorded V/S: Last Vital Signs Temp 100.4 F 04/27/18 14:14 Pulse 88 04/27/18 14:14 Resp 16 04/27/18 14:14 BP 110/71 04/27/18 14:14 Pulse Ox 98 04/27/18 14:14 - Orders/Labs/Meds Orders: Active Orders 24 hr Category Date Time Status EKG Documentation Completion [RC] STAT Care 04/27/18 15:52 Active CULTURE BLOOD [BC] Stat Lab 04/27/18 14:20 Received Sodium Chloride 0.9% [Normal Saline] 1,000 ml Med 04/27/18 14:32 Active IV .BOLUS Nasogastric Orogastric Tube Insertion [OM.PC] Routine Oth 04/27/18 15:29 Ordered Medication Orders Sodium Chloride (Normal Saline) 1,000 mls @ 150 mls/hr IV .BOLUS ONE Stop: 04/27/18 21:11 Last Admin: 04/27/18 14:38 Dose: 150 mls/hr Labs: Laboratory Tests 04/27/18 04/27/18 04/27/18 Range/Units 14:20 14:20 14:20 WBC 3.9 L (5.0-10.0) 10^3/uL RBC 4.19 L (4.2-5.4) 10^6/uL Hgb 11.1 L D (12.0-16.0) g/dL Hct 34.4 L (37.0-47.0) % MCV 82.1 (80-100) fL MCH 26.5 L (27.0-34.0) pg MCHC 32.3 L (33.0-35.0) g/dL Plt Count 264 D (150-450) 10^3/uL Neut % (Auto) 77.1 H (42.2-75.2) % Lymph % (Auto) 11.7 L (20.5-50.1) % [place] % (Auto) 10.9 H (2-8) % Eos % (Auto) 0.3 L (1.0-3.0) % Baso % (Auto) 0.0 (0.0-1.0) % PT 29.7 H D (9.0-12.0) SEC INR 3.1 H (0.9-1.2) Sodium 136 (135-145) mmol/L Potassium 3.2 L (3.6-5.0) mmol/L Chloride 93 L (101-111) mmol/L Carbon Dioxide 26.0 (21.0-31.0) mmol/L Anion Gap 20.2 BUN 55 H (7-18) mg/dL Creatinine 1.3 (0.6-1.3) mg/dL Est Cr Clr Drug Dosing 25.83 mL/min Estimated GFR (MDRD) 39 BUN/Creatinine Ratio 42.30 Glucose 132 H (74-105) mg/dL Lactic Acid (0.5-2.2) mmol/L Calcium 9.3 (8.4-10.2) mg/dl Total Bilirubin 2.5 H (0.2-1.0) mg/dL AST 36 (10-42) IU/L ALT 21 (10-60) IU/L Alkaline Phosphatase 59 (42-121) IU/L B-Natriuretic Peptide (0-100) pg/ml Total Protein 8.1 (6.7-8.2) g/dl Albumin 4.6 (3.2-5.5) g/dl Globulin 3.5 Albumin/Globulin Ratio 1.31 04/27/18 04/27/18 Range/Units 14:20 14:20 WBC (5.0-10.0) 10^3/uL RBC (4.2-5.4) 10^6/uL Hgb (12.0-16.0) g/dL Hct (37.0-47.0) % MCV (80-100) fL MCH (27.0-34.0) pg MCHC (33.0-35.0) g/dL Plt Count (150-450) 10^3/uL Neut % (Auto) (42.2-75.2) % Lymph % (Auto) (20.5-50.1) % [place] % (Auto) (2-8) % Eos % (Auto) (1.0-3.0) % Baso % (Auto) (0.0-1.0) % PT (9.0-12.0) SEC INR (0.9-1.2) Sodium (135-145) mmol/L Potassium (3.6-5.0) mmol/L Chloride (101-111) mmol/L Carbon Dioxide (21.0-31.0) mmol/L Anion Gap BUN (7-18) mg/dL Creatinine (0.6-1.3) mg/dL Est Cr Clr Drug Dosing mL/min Estimated GFR (MDRD) BUN/Creatinine Ratio Glucose (74-105) mg/dL Lactic Acid 1.6 (0.5-2.2) mmol/L Calcium (8.4-10.2) mg/dl Total Bilirubin (0.2-1.0) mg/dL AST (10-42) IU/L ALT (10-60) IU/L Alkaline Phosphatase (42-121) IU/L B-Natriuretic Peptide 1620 H (0-100) pg/ml Total Protein (6.7-8.2) g/dl Albumin (3.2-5.5) g/dl Globulin Albumin/Globulin Ratio Meds: Medications Generic Name Dose Route Start Last Admin Trade Name Freq PRN Reason Stop Dose Admin Sodium Chloride 1,000 mls @ 150 mls/hr 04/27/18 14:32 04/27/18 14:38 Normal Saline IV 04/27/18 21:11 150 mls/hr .BOLUS ONE Administration Discontinued Medications Generic Name Dose Route Start Last Admin Trade Name Freq PRN Reason Stop Dose Admin Hydromorphone HCl 0.5 mg 04/27/18 16:19 Dilaudid IVPUSH 04/27/18 16:20 ONETIME ONE - Radiology Interpretation Free Text/Narrative:: CT Abdomen without pelvis Huge cardiac silhouette (cardiomyopathy) with asymmetric dependent subpulmonic pleural effusion, on the left and some underlying left lower lobe atelectasis. Anasarca. No pericardial effusion. Generalized abnormal dilatation small bowel loops; differential air-fluid level ; nondilated large intestine or colon i.e. SBO. No abdominal or pelvic mass lesion; no pelvic or retroperitoneal lymphadenopathy ; diverticulosis sigmoid and left colon. Densely calcified "cast" normal caliber aortoiliac vessels (ischemic bowel differential consideration along with adhesions). No abdominal aortic aneurysm or dissection. No sign of ventral wall or inguinal hernia. Unenhanced liver, distended stomach, spleen, atrophic pancreas unremarkable. Free intraperitoneal ascitic fluid. Small nonobstructed kidneys bilaterally without mass or calcification. 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 See rad report - Re-Assessments/Exams Free Text/Narrative Re-Assessment/Exam: 04/27/18 16:23 Discussed patient case with Dr. England who agreed to accept the patient for transfer. Departure - Departure Time of Disposition: 16:23 Disposition: DC/Tfer to [facility] 02 Condition: Poor Clinical Impression: SBO (small bowel obstruction), Anasarca CHF (congestive heart failure) Qualifiers: Heart failure type: unspecified Heart failure chronicity: acute on chronic Qualified Code(s): I50.9 - Heart failure, unspecified - Discharge Information *PRESCRIPTION DRUG MONITORING PROGRAM REVIEWED*: No *COPY OF PRESCRIPTION DRUG MONITORING REPORT IN PATIENT EVANGELISTA: No Forms: ED Department Discharge, Interfacility Transfer EMTALA - My Orders Last 24 Hours: My Active Orders 04/27/18 14:20 CULTURE BLOOD [BC] Stat 04/27/18 14:32 Sodium Chloride 0.9% [Normal Saline] 1,000 ml IV .BOLUS 04/27/18 15:29 Nasogastric Orogastric Tube Insertion [OM.PC] Routine 04/27/18 15:52 EKG Documentation Completion [RC] STAT - Assessment/Plan Last 24 Hours: My Active Orders 04/27/18 14:20 CULTURE BLOOD [BC] Stat 04/27/18 14:32 Sodium Chloride 0.9% [Normal Saline] 1,000 ml IV .BOLUS 04/27/18 15:29 Nasogastric Orogastric Tube Insertion [OM.PC] Routine 04/27/18 15:52 EKG Documentation Completion [RC] STAT
[2018-04-27] MEDS ORDERED: Sodium Chloride 0.9% 1,000 ML IV ONE (14:32)
[2018-04-27 14:50] LABS: ANION GAP 20.2
--- NOTE | 2018-04-27 15:26 | CT ---
Clinical history: 87-year-old hypertensive 168 pound female with congestive heart failure and distended abdomen. Rule out small bowel obstruction (previous cholecystectomy, appendectomy and hysterectomy). Scan technique: Volume acquisition of data emergency unenhanced CT scan of the abdomen and pelvis obtained while the patient was lying supine on the Siemens multi slice scanner [place], [place]. All data archived in the PACS system for storage, reformatting axial/sagittal/coronal planes and study. Interpretation: Abnormal. 1. Huge cardiac silhouette (cardiomyopathy) with asymmetric dependent subpulmonic pleural effusion, on the left and some underlying left lower lobe atelectasis. Anasarca. No pericardial effusion. 2. *Generalized abnormal dilatation small bowel loops; differential air-fluid level; nondilated large intestine or colon i.e. SBO. 3. No abdominal or pelvic mass lesion; no pelvic or retroperitoneal lymphadenopathy; diverticulosis sigmoid and left colon. 4. Densely calcified "cast" normal caliber aortoiliac vessels (ischemic bowel differential consideration along with adhesions). No abdominal aortic aneurysm or dissection. No sign of ventral wall or inguinal hernia. 5. Unenhanced liver, distended stomach, spleen, atrophic pancreas unremarkable. Free intraperitoneal ascitic fluid. 6. Small nonobstructed kidneys bilaterally without mass or calcification. 7. 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
[2018-04-27] MEDS ORDERED: HYDROmorphone 1 MG/ML Syringe IVPUSH ONE (16:19)
== END 2018-04-27 16:55 ==
LOC: DL.ED 14:07
DX: K56.609 Unspecified intestinal obstruction, unspecified as to partial versus complete obstruction (principal); R60.1 Generalized edema; I11.0 Hypertensive heart disease with heart failure; I50.9 Heart failure, unspecified; I48.91 Unspecified atrial fibrillation; E78.00 Pure hypercholesterolemia, unspecified; E11.9 Type 2 diabetes mellitus without complications; E03.9 Hypothyroidism, unspecified; F41.9 Anxiety disorder, unspecified; Z88.8 Allergy status to other drugs, medicaments and biological substances; Z79.01 Long term (current) use of anticoagulants; Z79.899 Other long term (current) drug therapy
CPT/HCPCS: 36415; 74176; 80053; 83605; 83880; 85025; 85610; 87040; 93005; 96360; 96361; 99285; J1170; J7030

== ENCOUNTER 2019-03-12 11:30 | Inpatient (IN) | payer MEDICARE, BC ==
--- NOTE | 2019-03-12 12:16 | EDM.PDOC ---
ED HPI GENERAL MEDICAL PROBLEM - General Chief Complaint: Cardiovascular Problem Stated Complaint: UNKNOWN Time Seen by Provider: 03/12/19 12:00 Source of Information: Reports: Patient, Family (Brother), Old Records, RN, RN Notes Reviewed History Limitations: Reports: No Limitations - History of Present Illness INITIAL COMMENTS - FREE TEXT/NARRATIVE: Pt sent from clinic with report of shortness of breath, fatigue, severe edema/ anasarca, and 30lb wt gain in the past month. Pt denies chest pain. She states she primarily went to clinic today due to chronic but worsening mid-to low back pain. She was admitted here in 04/2018 with CHF, CKD, and A-fib with bradycardia. Pt states that she wishes to have conservative medical treatment, and if it fails then she wishes to proceed with comfort care only and "let nature take it's course". Pt states that she absolutely will not consider transferring to another hospital for higher level of care because she does not want to have any further evaluation by a oracle apex developer, and she will not consent to even considering a pacemaker. Pt states that if her condition worsens, we are to allow her to "pass away naturally" without CPR. She is competent to make her own medical decision, and her brother who is present agrees and supports her choice to have conservative care with DNR/DNI status, and transition to comfort care if her prognosis indicates. 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(s) Lower Back Pain Score (Numeric/FACES): 5 - Related Data Allergies Allergy/AdvReac Type Severity Reaction Status Date / Time calcium Allergy Cannot Verified 03/12/19 11:52 Remember ezetimibe Allergy Cannot Verified 03/12/19 11:52 Remember hydrochlorothiazide Allergy Dizziness Verified 03/12/19 11:52 simvastatin Allergy Cannot Verified 03/12/19 11:52 Remember Home Meds: Home Meds Multivitamin [Multivitamins] 1 tab PO DAILY 11/09/15 [History] Psyllium [Metamucil] 0.52 gm PO DAILY 11/09/15 [History] Warfarin [Coumadin] 6 mg PO .MONTUETHURFRISAT 11/09/15 [History] Ubidecarenone [Coenzyme Q-10] 30 mg PO DAILY 04/13/17 [History] Warfarin [Coumadin] 3 mg PO .SUN 04/16/18 [History] Levothyroxine Sodium [Levo-T] 50 mcg PO DAILY #30 tablet 04/18/18 [Rx] Bumetanide 2 mg PO BID 04/27/18 [History] Acetaminophen [Tylenol Extra Strength] 500 mg PO Q4H PRN 03/12/19 [History] Diclofenac Sodium [Voltaren 1% Gel] 1 applic TOP BID PRN 03/12/19 [History] Docusate Sodium [Dok] 100 mg PO DAILY 03/12/19 [History] Sennosides/Docusate Sodium [Senna Plus 8.6-50 mg Tablet] 1 each PO DAILY [History] carvediloL [Carvedilol] 3.125 mg PO BID 03/12/19 [History] lisinopriL [Lisinopril] 2.5 mg PO DAILY 03/12/19 [History] Past Medical History HEENT History: Reports: Cataract, Impaired Vision Cardiovascular History: Reports: Afib, Heart Failure, High Cholesterol, Hypertension Respiratory History: Reports: None Gastrointestinal History: Reports: Bowel Obstruction, Diverticulosis, Hemorrhoids Genitourinary History: Reports: Chronic Renal Insuffiency (CKD) 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 Musculoskeletal History: Reports: Arthritis, Back Pain, Chronic Neurological History: Reports: None Psychiatric History: Reports: Anxiety Endocrine/Metabolic History: Reports: Diabetes, Type II, Hypothyroidism Hematologic History: Reports: None Immunologic History: Reports: None Oncologic (Cancer) History: Reports: Uterine Dermatologic History: Reports: None - Infectious Disease History Infectious Disease History: Reports: Chicken Pox, Measles, Mumps - Past Surgical History Head Surgeries/Procedures: Reports: None HEENT Surgical History: Reports: Cataract Surgery, Tonsillectomy GI Surgical History: Reports: Appendectomy, Cholecystectomy Female Surgical History: Reports: Hysterectomy, Other (See Below) Other Female Surgeries/Procedures: lymph node removal Oncologic Surgical History: Reports: Biopsy of Breast Social & Family History - Family History Family Medical History: Noncontributory Cardiac: Reports: Arrhythmia, High Cholesterol, [place] Neurological: Reports: TIA Endocrine/Metabolic: Reports: Diabetes, type II Oncologic: Reports: Breast, Thyroid, Other (See Below) Other Oncologic Family History: "STOMACH CANCER" - Tobacco Use Smoking Status *Q: Never Smoker Second Hand Smoke Exposure: No - Caffeine Use Caffeine Use: Reports: Coffee - Recreational Drug Use Recreational Drug Use: No - Living Situation & Occupation Living situation: Reports: Alone Occupation: Retired ED ROS GENERAL - Review of Systems Review Of Systems: Comprehensive ROS is negative, except as noted in HPI. ED EXAM, GENERAL - Physical Exam Exam: See Below Exam Limited By: No Limitations General Appearance: Alert, No Apparent Distress, Other (Frail, elderly chronically ill appearing female) Eye Exam: Bilateral Eye: Normal Inspection Nose: Normal Inspection Throat/Mouth: Normal Inspection, Normal Voice, No Airway Compromise Head: Atraumatic, Normocephalic Neck: Supple, Non-Tender Respiratory/Chest: No Respiratory Distress, No Accessory Muscle Use, Chest Non- Tender, Decreased Breath Sounds, Crackles, Rales. No: Rhonchi, Wheezing Cardiovascular: Bradycardia, Other (3+ pitting edema of B/L lower extremities beyond thighs with anasarca to mid-abdomen) GI/Abdominal: Normal Bowel Sounds, Soft, Non-Tender Back Exam: Decreased Range of Motion, Paraspinal Tenderness, Vertebral Tenderness (chronic/stable per pt) Extremities: Pedal Edema. No: Leg Pain Neurological: Alert, Oriented, CN II-XII Intact, Normal Cognition, No Motor/ Sensory Deficits Psychiatric: Normal Mood, Flat Affect Skin Exam: Warm, Dry EKG INTERPRETATION EKG Date: 03/12/19 Time: 12:11 Rhythm: Other (Junctional escape rhythm vs A-fib w/bradycardia) Rate (Beats/Min): 34 [place]: LAD-Left [place] Deviation P-Wave: Absent QRS: LBBB ST-T: Normal QT: Prolonged Comparison: No Change Course - Vital Signs Last Recorded V/S: Last Vital Signs Temp 98.0 F 03/12/19 11:30 Pulse 70 03/12/19 11:30 Resp 18 03/12/19 11:30 BP 113/76 03/12/19 11:30 Pulse Ox 100 03/12/19 11:30 - Orders/Labs/Meds Orders: Active Orders 24 hr Category Date Time Status EKG 12 Lead [EKG Documentation Completion] [RC] STAT Care 03/12/19 12:28 Active Insert Wilson Catheter [Insert Urinary Catheter] [OM.PC] Care 03/12/19 13:15 Ordered Q24H Peripheral IV Care [RC] . DIRECTED Care 03/12/19 12:29 Active Chest 1V Frontal [CR] Stat Exams 03/12/19 12:28 Taken UA W/MICROSCOPIC [URIN] Stat Lab 03/12/19 12:58 Results Sodium Chloride 0.9% [Saline Flush] Med 03/12/19 12:28 Active 10 ml FLUSH ASDIRECTED PRN Peripheral IV Insertion Adult [OM.PC] Stat Oth 03/12/19 12:28 Ordered Medication Orders Sodium Chloride (Saline Flush) 10 ml FLUSH ASDIRECTED PRN PRN Reason: Keep Vein Open Last Admin: 03/12/19 12:51 Dose: 10 ml Labs: Laboratory Tests 03/12/19 03/12/19 03/12/19 Range/Units 12:30 12:30 12:30 WBC 4.2 L (5.0-10.0) 10^3/uL RBC 3.65 L (4.2-5.4) 10^6/uL Hgb 8.6 L D (12.0-16.0) g/dL Hct 27.5 L (37.0-47.0) % MCV 75.3 L D (80-100) fL MCH 23.6 L (27.0-34.0) pg MCHC 31.3 L (33.0-35.0) g/dL Plt Count 192 (150-450) 10^3/uL Neut % (Auto) 69.5 (42.2-75.2) % Lymph % (Auto) 17.2 L (20.5-50.1) % Coal % (Auto) 10.7 H (2-8) % Eos % (Auto) 2.1 (1.0-3.0) % Baso % (Auto) 0.5 (0.0-1.0) % PT 19.3 H D (9.0-12.0) SEC INR 1.9 H (0.9-1.2) Sodium 132 L (135-145) mmol/L Potassium 3.5 L (3.6-5.0) mmol/L Chloride 94 L (101-111) mmol/L Carbon Dioxide 28.0 (21.0-31.0) mmol/L Anion Gap 13.5 BUN 28 H D (7-18) mg/dL Creatinine 1.1 (0.6-1.3) mg/dL Est Cr Clr Drug Dosing 29.94 mL/min Estimated GFR (MDRD) 47 BUN/Creatinine Ratio 25.45 Glucose 115 H (74-105) mg/dL Calcium 9.2 (8.4-10.2) mg/dl Total Bilirubin 1.3 H (0.2-1.0) mg/dL AST 19 (10-42) IU/L ALT 14 (10-60) IU/L Alkaline Phosphatase 66 (42-121) IU/L B-Natriuretic Peptide 795 H (0-100) pg/ml Total Protein 6.9 (6.7-8.2) g/dl Albumin 4.0 (3.2-5.5) g/dl Globulin 2.9 Albumin/Globulin Ratio 1.38 Urine Color (YELLOW) Urine Appearance (CLEAR) Urine pH (5.0-9.0) Ur Specific [place] (1.005-1.030) Urine Protein (NEGATIVE) Urine Glucose (UA) (NEGATIVE) Urine Ketones (NEGATIVE) Urine Occult Blood (NEGATIVE) Urine Nitrite (NEGATIVE) Urine Bilirubin (NEGATIVE) Urine Urobilinogen (0.2-1.0) mg/dL Ur Leukocyte Esterase (NEGATIVE) 03/12/19 Range/Units 12:58 WBC (5.0-10.0) 10^3/uL RBC (4.2-5.4) 10^6/uL Hgb (12.0-16.0) g/dL Hct (37.0-47.0) % MCV (80-100) fL MCH (27.0-34.0) pg MCHC (33.0-35.0) g/dL Plt Count (150-450) 10^3/uL Neut % (Auto) (42.2-75.2) % Lymph % (Auto) (20.5-50.1) % Coal % (Auto) (2-8) % Eos % (Auto) (1.0-3.0) % Baso % (Auto) (0.0-1.0) % PT (9.0-12.0) SEC INR (0.9-1.2) Sodium (135-145) mmol/L Potassium (3.6-5.0) mmol/L Chloride (101-111) mmol/L Carbon Dioxide (21.0-31.0) mmol/L Anion Gap BUN (7-18) mg/dL Creatinine (0.6-1.3) mg/dL Est Cr Clr Drug Dosing mL/min Estimated GFR (MDRD) BUN/Creatinine Ratio Glucose (74-105) mg/dL Calcium (8.4-10.2) mg/dl Total Bilirubin (0.2-1.0) mg/dL AST (10-42) IU/L ALT (10-60) IU/L Alkaline Phosphatase (42-121) IU/L B-Natriuretic Peptide (0-100) pg/ml Total Protein (6.7-8.2) g/dl Albumin (3.2-5.5) g/dl Globulin Albumin/Globulin Ratio Urine Color Dark yellow (YELLOW) Urine Appearance Clear (CLEAR) Urine pH 5.0 (5.0-9.0) Ur Specific [place] 1.020 (1.005-1.030) Urine Protein Negative (NEGATIVE) Urine Glucose (UA) Negative (NEGATIVE) Urine Ketones Negative (NEGATIVE) Urine Occult Blood Trace-intact H (NEGATIVE) Urine Nitrite Negative (NEGATIVE) Urine Bilirubin Negative (NEGATIVE) Urine Urobilinogen 0.2 (0.2-1.0) mg/dL Ur Leukocyte Esterase Negative (NEGATIVE) Meds: Medications Generic Name Dose Route Start Last Admin Trade Name Arunq PRN Reason Stop Dose Admin Sodium Chloride 10 ml 03/12/19 12:28 03/12/19 12:51 Saline Flush FLUSH 10 ml ASDIRECTED PRN Administration Keep Vein Open Discontinued Medications Generic Name Dose Route Start Last Admin Trade Name Freq PRN Reason Stop Dose Admin Bumetanide 1 mg 03/12/19 12:29 03/12/19 12:50 Bumex IVPUSH 03/12/19 12:30 1 mg ONETIME ONE Administration Morphine Sulfate 2 mg 03/12/19 12:30 03/12/19 12:47 Morphine IVPUSH 03/12/19 12:31 2 mg ONETIME ONE Administration Ondansetron HCl 4 mg 03/12/19 12:30 03/12/19 12:48 Zofran IV 03/12/19 12:31 4 mg ONETIME ONE Administration - Radiology Interpretation Free Text/Narrative:: [facility] [place] [facility] Final Radiology Report Call: [phone] assistance Online chat: [email or web address] Name: AMARILIS AGUILAR Age: 88Years F Date: 03/12/2019 SSN: -- : [id number] Study: XR CHEST 1 VIEW FRONTAL Requesting Physician: ANDERSON MARTINEZ Images: 1 Addl Studies: Provided Clinical History: Contrast: Contrast Medium: Contrast Amount: Contrast Method: CONFIDENTIALITY STATEMENT This report is intended only for use by the referring physician, and only in accordance with law. If you received this in error, call [phone]. Page 1 of 1 PROCEDURE INFORMATION: Exam: XR Chest, 1 View Exam date and time: 03/12/2019 12:37 PM Age: 88 years old Clinical indication: Shortness of breath; Patient HX: SOB, rale, edema, HX chf TECHNIQUE: Imaging protocol: XR of the chest Views: 1 view. COMPARISON: CR ABD FLAT & UPR & CHEST 04/09/2006 7:57 PM FINDINGS: Lungs: The pulmonary vasculature is mildly congested. The lungs are otherwise clear. Pleural space: Unremarkable. No pleural effusion. No pneumothorax. Heart/Mediastinum: The cardiac silhouette appears moderately enlarged. This is a new finding. Vasculature: Atherosclerotic vascular calcifications are again present. Bones/joints: Unremarkable. IMPRESSION: 1. Moderate enlargement of the cardiac silhouette, new since 04/09/18, may relate to cardiomegaly and/or pericardial effusion. 2. Mild pulmonary vascular congestion. Thank you for allowing us to participate in the care of your patient. Dictated and Authenticated by: Jose David Mason MD 03/12/2019 12:58 PM Central Time ([place] & [place]) Departure - Departure Time of Disposition: 13:16 (admitted to Dr. Alvarez) Disposition: Admitted As Inpatient 65 Condition: Poor Clinical Impression: Anasarca, Chronic atrial fibrillation, Bradycardia Acute on chronic congestive heart failure Qualifiers: Heart failure type: combined systolic and diastolic Qualified Code(s): I50.43 - Acute on chronic combined systolic (congestive) and diastolic (congestive) heart failure Chronic back pain Qualifiers: Back pain location: thoracic back pain Back pain laterality: bilateral Qualified Code(s): M54.6 - Pain in thoracic spine; G89.29 - Other chronic pain CKD (chronic kidney disease) Qualifiers: Chronic kidney disease stage: unspecified stage Qualified Code(s): N18.9 - Chronic kidney disease, unspecified Forms: ED Department Discharge Sepsis Event Note - Evaluation Sepsis Screening Result: No Definite Risk - Focused Exam Vital Signs: Vital Signs Temp Pulse Resp BP Pulse Ox 03/12/19 11:30 98.0 F 70 18 113/76 100 Date Exam was Performed: 03/12/19 Time Exam was Performed: 13:16 - My Orders Last 24 Hours: My Active Orders 03/12/19 12:28 EKG 12 Lead [EKG Documentation Completion] [RC] STAT Chest 1V Frontal [CR] Stat Sodium Chloride 0.9% [Saline Flush] 10 ml FLUSH ASDIRECTED PRN Peripheral IV Insertion Adult [OM.PC] Stat 03/12/19 12:29 Peripheral IV Care [RC] . DIRECTED 03/12/19 12:58 UA W/MICROSCOPIC [URIN] Stat 03/12/19 13:15 Insert Wilson Catheter [Insert Urinary Catheter] [OM.PC] Q24H - Assessment/Plan Last 24 Hours: My Active Orders 03/12/19 12:28 EKG 12 Lead [EKG Documentation Completion] [RC] STAT Chest 1V Frontal [CR] Stat Sodium Chloride 0.9% [Saline Flush] 10 ml FLUSH ASDIRECTED PRN Peripheral IV Insertion Adult [OM.PC] Stat 03/12/19 12:29 Peripheral IV Care [RC] . DIRECTED 03/12/19 12:58 UA W/MICROSCOPIC [URIN] Stat 03/12/19 13:15 Insert Wilson Catheter [Insert Urinary Catheter] [OM.PC] Q24H
[2019-03-12] MEDS ORDERED: Bumetanide 1 MG/4 ML MDV IVPUSH ONE ×2 (12:29→16:40)
[2019-03-12] MEDS ORDERED: Ondansetron 4 MG/2 ML SDV IV ONE (12:30)
[2019-03-12] MEDS ORDERED: Morphine 2 MG/ML Syringe IVPUSH ONE (12:30)
[2019-03-12] MEDS: Sodium Chloride 0.9% 10 ML Syringe FLUSH PRN (12:51)
[2019-03-12 12:59] LABS: ANION GAP 13.5
[2019-03-12] MEDS ORDERED: Acetaminophen 325 MG Tab PO PRN (13:54)
[2019-03-12] MEDS ORDERED: Sodium Chloride 0.9% 10 ML Syringe FLUSH PRN (13:54)
[2019-03-12] MEDS ORDERED: Ondansetron 4 MG Tab.DIS PO PRN (13:54)
[2019-03-12] MEDS ORDERED: Docusate Sodium 100 MG Cap PO PRN (13:54)
[2019-03-12] MEDS ORDERED: Zolpidem 5 MG Tab PO PRN (13:54)
[2019-03-12] MEDS ORDERED: Albuterol 0.083% 2.5 MG/3 ML Neb Soln NEB PRN (13:54)
[2019-03-12] MEDS ORDERED: Morphine 2 MG/ML Syringe IVPUSH PRN (13:54)
--- NOTE | 2019-03-12 14:05 | PCM.HP ---
H&P History of Present Illness - General Date of Service: 03/12/19 Admit Problem/Dx: Admission Diagnosis/Problem Admission Diagnosis/Problem Congestive heart failure Source of Information: Patient History Limitations: Reports: No Limitations - History of Present Illness Initial Comments - Free Text/Narative: Susy Hein is an 88 y.o female with a medical history of systolic CHF ( last EF 30-35%), Afib, smalll bowel obstruction, chronic back pain and CKD who presented with complains of shortness of breath and bilateral leg swelling. Patient developed shortness of breath and bilateral leg swelling about 2 weeks ago. She repots orthopnea and infrequent productive cough. She has been sleeping inclined on her cough. She does have chronic leg swelling but it has worsened in the past 2 weeks. She reports a weight gain of 30 lbs in the past month. She takes bumex but it has not stopped the swelling. Patient denies chest pain or pressure, palpitations, fever, nausea emesis or diarrhea. In the ED, her vital signs were within normal limits. Labs was significant for hemoglobin of 8.6, MCV 75.3, potassium 3.4 and BNP of 795. CXR showed cardiomegaly with pulmonary vascular congestion. She was given 1mg IV bumex. Per discussion with ED doctor (which I also confirmed with patient), she does not want any invasive or aggressive interventions or transfer to a high acuity facility, now or if she to decompensate further. She is DNI/DNR and would like to be made comfort cares if she declines clinically. Lower Back Pain Score (Numeric/FACES): 5 - Related Data Allergies/Adverse Reactions: Allergies Allergy/AdvReac Type Severity Reaction Status Date / Time calcium Allergy Cannot Verified 03/12/19 13:50 Remember ezetimibe Allergy Cannot Verified 03/12/19 13:50 Remember hydrochlorothiazide Allergy Dizziness Verified 03/12/19 13:50 simvastatin Allergy Cannot Verified 03/12/19 13:50 Remember Home Medications: Home Meds Multivitamin [Multivitamins] 1 tab PO DAILY 11/09/15 [History] Warfarin [Coumadin] 6 mg PO .MONTUETHURFRISAT 11/09/15 [History] Warfarin [Coumadin] 3 mg PO .SUN 04/16/18 [History] Acetaminophen [Tylenol Extra Strength] 500 mg PO Q4H PRN 03/12/19 [History] Bumetanide 2 mg PO BID 03/12/19 [History] Diclofenac Sodium [Voltaren 1% Gel] 1 applic TOP BID PRN 03/12/19 [History] Docusate Sodium [Dok] 100 mg PO DAILY 03/12/19 [History] Levothyroxine 50 mcg PO ACBREAKFAST 03/12/19 [History] Lisinopril [Zestril] 2.5 mg PO DAILY 03/12/19 [History] Psyllium Husk (With Sugar) [Metamucil Powder] 1 tbsp PO DAILY 03/12/19 [History] Sennosides/Docusate Sodium [Senna Plus 8.6-50 mg Tablet] 1 tab PO BID 03/12/19 [ History] Ubidecarenone [Co Q-10] 10 mg PO DAILY 03/12/19 [History] carvediloL [Carvedilol] 3.125 mg PO BIDMEALS 03/12/19 [History] lisinopriL [Lisinopril] 2.5 mg PO DAILY 03/12/19 [History] Past Medical History HEENT History: Reports: Cataract, Impaired Vision Cardiovascular History: Reports: Afib, Heart Failure, High Cholesterol, Hypertension Respiratory History: Reports: None Gastrointestinal History: Reports: Bowel Obstruction, Diverticulosis, Hemorrhoids Genitourinary History: Reports: Chronic Renal Insuffiency (CKD) 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 Musculoskeletal History: Reports: Arthritis, Back Pain, Chronic Neurological History: Reports: None Psychiatric History: Reports: Anxiety Endocrine/Metabolic History: Reports: Diabetes, Type II, Hypothyroidism Hematologic History: Reports: None Immunologic History: Reports: None Oncologic (Cancer) History: Reports: Uterine Dermatologic History: Reports: None - Infectious Disease History Infectious Disease History: Reports: Chicken Pox, Measles, Mumps - Past Surgical History Head Surgeries/Procedures: Reports: None HEENT Surgical History: Reports: Cataract Surgery, Tonsillectomy GI Surgical History: Reports: Appendectomy, Cholecystectomy Female Surgical History: Reports: Hysterectomy, Other (See Below) Other Female Surgeries/Procedures: lymph node removal Oncologic Surgical History: Reports: Biopsy of Breast Social & Family History - Family History Family Medical History: Noncontributory Cardiac: Reports: Arrhythmia, High Cholesterol, ID Neurological: Reports: TIA Endocrine/Metabolic: Reports: Diabetes, type II Oncologic: Reports: Breast, Thyroid, Other (See Below) Other Oncologic Family History: "STOMACH CANCER" - Tobacco Use Smoking Status *Q: Never Smoker Second Hand Smoke Exposure: No - Caffeine Use Caffeine Use: Reports: Coffee - Recreational Drug Use Recreational Drug Use: No - Living Situation & Occupation Living situation: Reports: Alone Occupation: Retired H&P Review of Systems - Review of Systems: Review Of Systems: See Below General: Reports: No Symptoms HEENT: Reports: No Symptoms Pulmonary: Reports: Shortness of Breath, Cough Cardiovascular: Reports: Palpitations, Orthopnea, Edema. Denies: Chest Pain Gastrointestinal: Reports: No Symptoms Genitourinary: Reports: No Symptoms Musculoskeletal: Reports: No Symptoms Skin: Reports: No Symptoms Psychiatric: Reports: No Symptoms Neurological: Reports: No Symptoms Hematologic/Lymphatic: Reports: No Symptoms Immunologic: Reports: No Symptoms Exam - Exam Exam: See Below - Vital Signs Vital Signs: Last Vital Signs Temp 98.0 F 03/12/19 11:30 Pulse 70 03/12/19 11:30 Resp 18 03/12/19 11:30 BP 113/76 03/12/19 11:30 Pulse Ox 100 03/12/19 11:30 Weight: 181 lb 6 oz - Exam General: Alert, Oriented, 4 HEENT: PERRLA, Hearing Intact, Mucosa Moist & Parc, Nares Patent, Normal Nasal Septum, Posterior Pharynx Clear, Conjunctiva Clear, EOMI, EACs Clear, TMs Clear Neck: Supple, Trachea Midline, 2 Lungs: Normal Respiratory Effort, Crackles Cardiovascular: Regular Rate, Regular Rhythm GI/Abdominal Exam: Normal Bowel Sounds, Soft, Non-Tender, No Organomegaly, No Distention, No Abnormal Bruit, No Mass, Pelvis Stable (Female) Exam: Deferred Rectal (Female) Exam: Deferred Back Exam: Normal Inspection, Full Range of Motion, NT Extremities: Normal Range of Motion, Non-Tender, Normal Capillary Refill, Pedal Edema (Anasarca) Skin: Warm, Dry, Wound (On miranda of left leg) Neurological: Cranial Nerves Intact, Reflexes Equal Bilateral Neuro Extensive - Mental Status: Alert, Oriented x3, Normal Mood/Affect, Normal Cognition Neuro Extensive - Motor, Sensory, Reflexes: CN II-XII Intact, Normal Gait, Normal Reflexes Psychiatric: Alert, Normal Affect, Normal Mood - Patient Data Lab Results Last 24 hrs: Laboratory Results - last 24 hr 03/12/19 03/12/19 03/12/19 Range/Units 12:30 12:30 12:30 WBC 4.2 L (5.0-10.0) 10^3/uL RBC 3.65 L (4.2-5.4) 10^6/uL Hgb 8.6 L D (12.0-16.0) g/dL Hct 27.5 L (37.0-47.0) % MCV 75.3 L D (80-100) fL MCH 23.6 L (27.0-34.0) pg MCHC 31.3 L (33.0-35.0) g/dL Plt Count 192 (150-450) 10^3/uL Neut % (Auto) 69.5 (42.2-75.2) % Lymph % (Auto) 17.2 L (20.5-50.1) % Kidder % (Auto) 10.7 H (2-8) % Eos % (Auto) 2.1 (1.0-3.0) % Baso % (Auto) 0.5 (0.0-1.0) % PT 19.3 H D (9.0-12.0) SEC INR 1.9 H (0.9-1.2) Sodium 132 L (135-145) mmol/L Potassium 3.5 L (3.6-5.0) mmol/L Chloride 94 L (101-111) mmol/L Carbon Dioxide 28.0 (21.0-31.0) mmol/L Anion Gap 13.5 BUN 28 H D (7-18) mg/dL Creatinine 1.1 (0.6-1.3) mg/dL Est Cr Clr Drug Dosing 29.94 mL/min Estimated GFR (MDRD) 47 BUN/Creatinine Ratio 25.45 Glucose 115 H (74-105) mg/dL Calcium 9.2 (8.4-10.2) mg/dl Total Bilirubin 1.3 H (0.2-1.0) mg/dL AST 19 (10-42) IU/L ALT 14 (10-60) IU/L Alkaline Phosphatase 66 (42-121) IU/L B-Natriuretic Peptide 795 H (0-100) pg/ml Total Protein 6.9 (6.7-8.2) g/dl Albumin 4.0 (3.2-5.5) g/dl Globulin 2.9 Albumin/Globulin Ratio 1.38 Urine Color (YELLOW) Urine Appearance (CLEAR) Urine pH (5.0-9.0) Ur Specific [place] (1.005-1.030) Urine Protein (NEGATIVE) Urine Glucose (UA) (NEGATIVE) Urine Ketones (NEGATIVE) Urine Occult Blood (NEGATIVE) Urine Nitrite (NEGATIVE) Urine Bilirubin (NEGATIVE) Urine Urobilinogen (0.2-1.0) mg/dL Ur Leukocyte Esterase (NEGATIVE) Urine RBC /HPF Urine WBC (0-5/HPF) /HPF Ur Epithelial Cells (NOT SEEN) /HPF Amorphous Sediment (NOT SEEN) /HPF Urine Bacteria (0-FEW/HPF) /HPF Urine Mucus (NOT SEEN) /LPF 03/12/19 Range/Units 12:58 WBC (5.0-10.0) 10^3/uL RBC (4.2-5.4) 10^6/uL Hgb (12.0-16.0) g/dL Hct (37.0-47.0) % MCV (80-100) fL MCH (27.0-34.0) pg MCHC (33.0-35.0) g/dL Plt Count (150-450) 10^3/uL Neut % (Auto) (42.2-75.2) % Lymph % (Auto) (20.5-50.1) % Kidder % (Auto) (2-8) % Eos % (Auto) (1.0-3.0) % Baso % (Auto) (0.0-1.0) % PT (9.0-12.0) SEC INR (0.9-1.2) Sodium (135-145) mmol/L Potassium (3.6-5.0) mmol/L Chloride (101-111) mmol/L Carbon Dioxide (21.0-31.0) mmol/L Anion Gap BUN (7-18) mg/dL Creatinine (0.6-1.3) mg/dL Est Cr Clr Drug Dosing mL/min Estimated GFR (MDRD) BUN/Creatinine Ratio Glucose (74-105) mg/dL Calcium (8.4-10.2) mg/dl Total Bilirubin (0.2-1.0) mg/dL AST (10-42) IU/L ALT (10-60) IU/L Alkaline Phosphatase (42-121) IU/L B-Natriuretic Peptide (0-100) pg/ml Total Protein (6.7-8.2) g/dl Albumin (3.2-5.5) g/dl Globulin Albumin/Globulin Ratio Urine Color Dark yellow (YELLOW) Urine Appearance Clear (CLEAR) Urine pH 5.0 (5.0-9.0) Ur Specific [place] 1.020 (1.005-1.030) Urine Protein Negative (NEGATIVE) Urine Glucose (UA) Negative (NEGATIVE) Urine Ketones Negative (NEGATIVE) Urine Occult Blood Trace-intact H (NEGATIVE) Urine Nitrite Negative (NEGATIVE) Urine Bilirubin Negative (NEGATIVE) Urine Urobilinogen 0.2 (0.2-1.0) mg/dL Ur Leukocyte Esterase Negative (NEGATIVE) Urine RBC 0-5 /HPF Urine WBC 0-5 (0-5/HPF) /HPF Ur Epithelial Cells Occasional (NOT SEEN) /HPF Amorphous Sediment Few (NOT SEEN) /HPF Urine Bacteria Few (0-FEW/HPF) /HPF Urine Mucus Few H (NOT SEEN) /LPF Result Diagrams: 03/12/19 12:30 03/12/19 12:30 Problem List Initiated/Reviewed/Updated: Yes Orders Last 24hrs: Active Orders 24 hr Category Date Time Status Admission Diagnosis [ADT] Routine ADT 03/12/19 13:22 Ordered Patient Status [ADT] Routine ADT 03/12/19 13:22 Active Patient Status [ADT] Routine ADT 03/12/19 13:54 Active Insert Wilson Catheter [Insert Urinary Catheter] [OM.PC] Care 03/12/19 13:15 Ordered Q24H Intake and Output [RC] QSHIFT Care 03/12/19 13:55 Active Oxygen Therapy [RC] PRN Care 03/12/19 13:54 Active RT Aerosol Therapy [RC] ASDIRECTED Care 03/12/19 13:57 Active Up ad Shruthi [RC] ASDIRECTED Care 03/12/19 13:54 Active VTE/DVT Education [RC] PER UNIT ROUTINE Care 03/12/19 13:54 Active Vital Signs [RC] Q4H Care 03/12/19 13:54 Active 2 Gram Sodium Diet [DIET] Diet 03/12/19 Lunch Active Chest 1V Frontal [CR] Stat Exams 03/12/19 12:28 Taken BASIC METABOLIC PANEL,BMP [CHEM] AM Lab 03/13/19 05:11 Ordered CBC WITH AUTO DIFF [HEME] AM Lab 03/13/19 05:11 Ordered MAGNESIUM [CHEM] AM Lab 03/13/19 05:11 Ordered Acetaminophen [Tylenol] Med 03/12/19 13:54 Ordered 650 mg PO Q4H PRN Albuterol [Proventil Neb Soln] Med 03/12/19 13:54 Ordered 2.5 mg NEB Q2H PRN Docusate Sodium [Colace] Med 03/12/19 13:54 Ordered 100 mg PO BID PRN Enoxaparin [Lovenox] Med 03/13/19 09:00 Ordered 30 mg SUBCUT DAILY Morphine Med 03/12/19 13:54 Ordered 2 mg IVPUSH Q2H PRN Ondansetron [Zofran ODT] Med 03/12/19 13:54 Ordered 4 mg PO Q4H PRN Sodium Chloride 0.9% [Saline Flush] Med 03/12/19 12:28 Active 10 ml FLUSH ASDIRECTED PRN Sodium Chloride 0.9% [Saline Flush] Med 03/12/19 13:54 Ordered 10 ml FLUSH ASDIRECTED PRN Zolpidem [Ambien] Med 03/12/19 13:54 Ordered 5 mg PO BEDTIME PRN oxyCODONE Med 03/12/19 13:54 Ordered 5 mg PO Q4H PRN Peripheral IV Insertion Adult [OM.PC] Stat Oth 03/12/19 12:28 Ordered Saline Lock Insert [OM.PC] Routine Oth 03/12/19 13:54 Ordered Resuscitation Status Routine Resus Stat 03/12/19 13:54 Ordered Medication Orders Acetaminophen (Tylenol) 650 mg PO Q4H PRN PRN Reason: Pain (Mild 1-3)/fever Albuterol (Proventil Neb Soln) 2.5 mg NEB Q2H PRN PRN Reason: shortness of breath/wheezing Docusate Sodium (Colace) 100 mg PO BID PRN PRN Reason: Constipation Enoxaparin Sodium (Lovenox) 30 mg SUBCUT DAILY [facility] Morphine Sulfate (Morphine) 2 mg IVPUSH Q2H PRN PRN Reason: Pain (severe 7-10) Ondansetron HCl (Zofran Odt) 4 mg PO Q4H PRN PRN Reason: nausea, able to take PO Oxycodone HCl (Oxycodone) 5 mg PO Q4H PRN PRN Reason: Pain (moderate 4-6) Sodium Chloride (Saline Flush) 10 ml FLUSH ASDIRECTED PRN PRN Reason: Keep Vein Open Last Admin: 03/12/19 12:51 Dose: 10 ml Sodium Chloride (Saline Flush) 10 ml FLUSH ASDIRECTED PRN PRN Reason: Keep Vein Open Zolpidem Tartrate (Ambien) 5 mg PO BEDTIME PRN PRN Reason: Sleep Assessment/Plan Comment:: Acute systolic CHF exacerbation Anasarca Shortness of breath, cough, orthopnea, BLE with anasarca on exam. BNP of 795. CXR showed cardiomegaly with pulmonary vascular congestion. Last echo with EF of 30-35%. Takes Bumex 2mg BID at home. Denied missing any dose. - S/p Bumex 1 mg in ED - Continue diuresis with Bumex 2 mg IVB BID, as blood pressure tolerates - Daily weights - Strict I/o - Pass Wilson catheter - Cardiac diet with 2 gm sodium restriction Chronic microcytic anemia Hemoglobin of 8.6 and MCV 75.3. Likely due to iron deficiency. - Start Ferrous sulfate with daily vitamin C Hypokalemia Potassium of 3.4. - Replace Atrial fibrillation Chronic anticoagulation Bradycardia - Currently bradycardic - Dose carvedilol if HR>70 - Pharmacy consult for warfarin dosing CKD -Creatinine at baseline Hypothyroidism - Resume home Synthroid Acute on chronic back pain Likely worsened due to anasarca. - Pain meds IV and PO as needed - PT/OT Hypertension - Hold home Lisinopril due to soft blood pressures Goals of care and Code Status: DNR/DNI. Does not want any invasive or aggressive interventions or transfer to a high acuity facility. Would like to be made comfort cares if she declines clinically. DVT Prophylaxis: On Coumadin
[2019-03-12] MEDS ORDERED: Warfarin 2 MG Tab PO ONE (15:30)
[2019-03-12] MEDS ORDERED: Non-Formulary Medication 1 Each (Diclofenac Sodium [Voltaren 1% Gel] 1 APPLIC) TOP PRN (16:10)
[2019-03-12] MEDS: Carvedilol 3.125 MG Tab PO SCH (18:28)
[2019-03-12] MEDS: Bumetanide 1 MG/4 ML MDV IVPUSH SCH (21:07)
[2019-03-13] MEDS: Levothyroxine 50 MCG Tab PO SCH (05:46)
[2019-03-13 06:55] LABS: ANION GAP 13.7
[2019-03-13] MEDS ORDERED: Ferrous Sulfate 325 MG Tab PO SCH (08:00)
[2019-03-13] MEDS ORDERED: UBIDECARENONE 10 MG PO SCH (09:00)
[2019-03-13] MEDS ORDERED: Non-Formulary Medication 1 Each (Lisinopril [Lisinopril] 2.5 MG) PO SCH (09:00)
[2019-03-13] MEDS ORDERED: Enoxaparin 30 MG/0.3 ML Syringe SUBCUT SCH (09:00)
[2019-03-13] MEDS: Bumetanide 1 MG/4 ML MDV IVPUSH SCH (09:25)
[2019-03-13] MEDS: Sodium Chloride 0.9% 10 ML Syringe FLUSH PRN (09:32)
[2019-03-13] MEDS: Multivitamins,Therapeutic Tab PO SCH (09:33)
[2019-03-13] MEDS: Carvedilol 3.125 MG Tab PO SCH ×2 (09:34→17:43)
[2019-03-13] MEDS: Psyllium Husk Powder Sugar Free 5.85 GM Packet PO SCH (09:35)
--- NOTE | 2019-03-13 09:40 | PCM.PN ---
- General Info Date of Service: 03/13/19 Admission Dx/Problem (Free Text): Admission Diagnosis/Problem Admission Diagnosis/Problem decompensated congestive heart failure Subjective Update: Patient continues to have significant lower extremity edema, left-sided that her swelling has improved somewhat. she said that she has no back pain today, but had it for the past 2 weeks. she wasnt able to sleep in a bed for the past few weeks due to shortness of breath. - Review of Systems Systems Review Comment:: Reviewed and negative apart from HPI - Patient Data Vitals - Most Recent: Last Vital Signs Temp 36.8 C 03/13/19 08:00 Pulse 80 03/13/19 09:34 Resp 18 03/13/19 08:00 BP 125/83 03/13/19 09:34 Pulse Ox 99 03/13/19 08:00 Weight - Most Recent: 81.465 kg I&O - Last 24 Hours: Intake & Output 03/12/19 03/13/19 03/13/19 22:59 06:59 14:59 Intake Total 540 480 Output Total 900 Balance -360 480 Lab Results Last 24 Hours: Laboratory Results - last 24 hr 03/12/19 03/12/19 03/12/19 Range/Units 12:30 12:30 12:30 WBC 4.2 L (5.0-10.0) 10^3/uL RBC 3.65 L (4.2-5.4) 10^6/uL Hgb 8.6 L D (12.0-16.0) g/dL Hct 27.5 L (37.0-47.0) % MCV 75.3 L D (80-100) fL MCH 23.6 L (27.0-34.0) pg MCHC 31.3 L (33.0-35.0) g/dL Plt Count 192 (150-450) 10^3/uL Neut % (Auto) 69.5 (42.2-75.2) % Lymph % (Auto) 17.2 L (20.5-50.1) % [place]eman % (Auto) 10.7 H (2-8) % Eos % (Auto) 2.1 (1.0-3.0) % Baso % (Auto) 0.5 (0.0-1.0) % PT 19.3 H D (9.0-12.0) SEC INR 1.9 H (0.9-1.2) Sodium 132 L (135-145) mmol/L Potassium 3.5 L (3.6-5.0) mmol/L Chloride 94 L (101-111) mmol/L Carbon Dioxide 28.0 (21.0-31.0) mmol/L Anion Gap 13.5 BUN 28 H D (7-18) mg/dL Creatinine 1.1 (0.6-1.3) mg/dL Est Cr Clr Drug Dosing 29.94 mL/min Estimated GFR (MDRD) 47 BUN/Creatinine Ratio 25.45 Glucose 115 H (74-105) mg/dL Calcium 9.2 (8.4-10.2) mg/dl Magnesium (1.8-2.5) mg/dL Total Bilirubin 1.3 H (0.2-1.0) mg/dL AST 19 (10-42) IU/L ALT 14 (10-60) IU/L Alkaline Phosphatase 66 (42-121) IU/L B-Natriuretic Peptide 795 H (0-100) pg/ml Total Protein 6.9 (6.7-8.2) g/dl Albumin 4.0 (3.2-5.5) g/dl Globulin 2.9 Albumin/Globulin Ratio 1.38 Urine Color (YELLOW) Urine Appearance (CLEAR) Urine pH (5.0-9.0) Ur Specific [place] (1.005-1.030) Urine Protein (NEGATIVE) Urine Glucose (UA) (NEGATIVE) Urine Ketones (NEGATIVE) Urine Occult Blood (NEGATIVE) Urine Nitrite (NEGATIVE) Urine Bilirubin (NEGATIVE) Urine Urobilinogen (0.2-1.0) mg/dL Ur Leukocyte Esterase (NEGATIVE) Urine RBC /HPF Urine WBC (0-5/HPF) /HPF Ur Epithelial Cells (NOT SEEN) /HPF Amorphous Sediment (NOT SEEN) /HPF Urine Bacteria (0-FEW/HPF) /HPF Urine Mucus (NOT SEEN) /LPF 03/12/19 03/13/19 03/13/19 Range/Units 12:58 06:15 06:15 WBC 3.8 L (5.0-10.0) 10^3/uL RBC 3.33 L (4.2-5.4) 10^6/uL Hgb 7.8 L (12.0-16.0) g/dL Hct 25.2 L (37.0-47.0) % MCV 75.7 L (80-100) fL MCH 23.4 L (27.0-34.0) pg MCHC 31.0 L (33.0-35.0) g/dL Plt Count 188 (150-450) 10^3/uL Neut % (Auto) 59.7 (42.2-75.2) % Lymph % (Auto) 22.4 (20.5-50.1) % Hodgeman % (Auto) 13.9 H (2-8) % Eos % (Auto) 2.9 (1.0-3.0) % Baso % (Auto) 1.1 H (0.0-1.0) % PT (9.0-12.0) SEC INR (0.9-1.2) Sodium 136 (135-145) mmol/L Potassium 3.7 (3.6-5.0) mmol/L Chloride 97 L (101-111) mmol/L Carbon Dioxide 29.0 (21.0-31.0) mmol/L Anion Gap 13.7 BUN 29 H (7-18) mg/dL Creatinine 1.2 (0.6-1.3) mg/dL Est Cr Clr Drug Dosing 28.02 mL/min Estimated GFR (MDRD) 42 BUN/Creatinine Ratio Glucose 119 H (74-105) mg/dL Calcium 8.8 (8.4-10.2) mg/dl Magnesium 2.4 (1.8-2.5) mg/dL Total Bilirubin (0.2-1.0) mg/dL AST (10-42) IU/L ALT (10-60) IU/L Alkaline Phosphatase (42-121) IU/L B-Natriuretic Peptide (0-100) pg/ml Total Protein (6.7-8.2) g/dl Albumin (3.2-5.5) g/dl Globulin Albumin/Globulin Ratio Urine Color Dark yellow (YELLOW) Urine Appearance Clear (CLEAR) Urine pH 5.0 (5.0-9.0) Ur Specific [place] 1.020 (1.005-1.030) Urine Protein Negative (NEGATIVE) Urine Glucose (UA) Negative (NEGATIVE) Urine Ketones Negative (NEGATIVE) Urine Occult Blood Trace-intact H (NEGATIVE) Urine Nitrite Negative (NEGATIVE) Urine Bilirubin Negative (NEGATIVE) Urine Urobilinogen 0.2 (0.2-1.0) mg/dL Ur Leukocyte Esterase Negative (NEGATIVE) Urine RBC 0-5 /HPF Urine WBC 0-5 (0-5/HPF) /HPF Ur Epithelial Cells Occasional (NOT SEEN) /HPF Amorphous Sediment Few (NOT SEEN) /HPF Urine Bacteria Few (0-FEW/HPF) /HPF Urine Mucus Few H (NOT SEEN) /LPF 03/13/19 Range/Units 06:15 WBC (5.0-10.0) 10^3/uL RBC (4.2-5.4) 10^6/uL Hgb (12.0-16.0) g/dL Hct (37.0-47.0) % MCV (80-100) fL MCH (27.0-34.0) pg MCHC (33.0-35.0) g/dL Plt Count (150-450) 10^3/uL Neut % (Auto) (42.2-75.2) % Lymph % (Auto) (20.5-50.1) % Hod[place]eman % (Auto) (2-8) % Eos % (Auto) (1.0-3.0) % Baso % (Auto) (0.0-1.0) % PT 20.4 H (9.0-12.0) SEC INR 2.1 H (0.9-1.2) Sodium (135-145) mmol/L Potassium (3.6-5.0) mmol/L Chloride (101-111) mmol/L Carbon Dioxide (21.0-31.0) mmol/L Anion Gap BUN (7-18) mg/dL Creatinine (0.6-1.3) mg/dL Est Cr Clr Drug Dosing mL/min Estimated GFR (MDRD) BUN/Creatinine Ratio Glucose (74-105) mg/dL Calcium (8.4-10.2) mg/dl Magnesium (1.8-2.5) mg/dL Total Bilirubin (0.2-1.0) mg/dL AST (10-42) IU/L ALT (10-60) IU/L Alkaline Phosphatase (42-121) IU/L B-Natriuretic Peptide (0-100) pg/ml Total Protein (6.7-8.2) g/dl Albumin (3.2-5.5) g/dl Globulin Albumin/Globulin Ratio Urine Color (YELLOW) Urine Appearance (CLEAR) Urine pH (5.0-9.0) Ur Specific [place] (1.005-1.030) Urine Protein (NEGATIVE) Urine Glucose (UA) (NEGATIVE) Urine Ketones (NEGATIVE) Urine Occult Blood (NEGATIVE) Urine Nitrite (NEGATIVE) Urine Bilirubin (NEGATIVE) Urine Urobilinogen (0.2-1.0) mg/dL Ur Leukocyte Esterase (NEGATIVE) Urine RBC /HPF Urine WBC (0-5/HPF) /HPF Ur Epithelial Cells (NOT SEEN) /HPF Amorphous Sediment (NOT SEEN) /HPF Urine Bacteria (0-FEW/HPF) /HPF Urine Mucus (NOT SEEN) /LPF Med Orders - Current: Current Medications Acetaminophen (Tylenol) 650 mg PO Q4H PRN PRN Reason: Pain (Mild 1-3)/fever Albuterol (Proventil Neb Soln) 2.5 mg NEB Q2H PRN PRN Reason: shortness of breath/wheezing Ascorbic Acid (Vitamin C) 500 mg PO DAILY [facility] Bumetanide (Bumex) 2 mg IVPUSH BID [facility] Last Admin: 03/13/19 09:25 Dose: 2 mg Carvedilol (Coreg) 3.125 mg PO BIDMEALS [facility] Last Admin: 03/13/19 09:34 Dose: 3.125 mg Docusate Sodium (Colace) 100 mg PO BID PRN PRN Reason: Constipation Ferrous Sulfate (Ferrous Sulfate) 325 mg PO WITHBREAKFAST [facility] Levothyroxine Sodium (Synthroid) 50 mcg PO ACBREAKFAST [facility] Last Admin: 03/13/19 05:46 Dose: 50 mcg Morphine Sulfate (Morphine) 2 mg IVPUSH Q2H PRN PRN Reason: Pain (severe 7-10) Multivitamins (Thera) 1 each PO DAILY [facility] Last Admin: 03/13/19 09:33 Dose: 1 each Ondansetron HCl (Zofran Odt) 4 mg PO Q4H PRN PRN Reason: nausea, able to take PO Oxycodone HCl (Oxycodone) 5 mg PO Q4H PRN PRN Reason: Pain (moderate 4-6) Psyllium Husk (Metamucil Sugar Free) 1 pkt PO DAILY [facility] Last Admin: 03/13/19 09:35 Dose: 1 pkt Senna/Docusate Sodium (Senna Plus) 1 tab PO BID [facility] Last Admin: 03/13/19 09:33 Dose: 1 tab Sodium Chloride (Saline Flush) 10 ml FLUSH ASDIRECTED PRN PRN Reason: Keep Vein Open Last Admin: 03/13/19 09:32 Dose: 10 ml Sodium Chloride (Saline Flush) 10 ml FLUSH ASDIRECTED PRN PRN Reason: Keep Vein Open Warfarin Sodium (Pharmacy To Dose - Warfarin) 1 dose .XX ASDIRECTED [facility] Warfarin Sodium (Coumadin) 6 mg PO ONETIME ONE Stop: 03/13/19 14:01 Zolpidem Tartrate (Ambien) 5 mg PO BEDTIME PRN PRN Reason: Sleep Discontinued Medications Bumetanide (Bumex) 1 mg IVPUSH ONETIME ONE Stop: 03/12/19 12:30 Last Admin: 03/12/19 12:50 Dose: 1 mg Bumetanide (Bumex) 1 mg IVPUSH BID ONE Stop: 03/12/19 16:41 Last Admin: 03/12/19 17:58 Dose: Not Given Enoxaparin Sodium (Lovenox) 30 mg SUBCUT DAILY [facility] Ferrous Sulfate (Ferrous Sulfate) 325 mg PO WITHBREAKFAST [facility] Morphine Sulfate (Morphine) 2 mg IVPUSH ONETIME ONE Stop: 03/12/19 12:31 Last Admin: 03/12/19 12:47 Dose: 2 mg Non-Formulary Medication (Diclofenac Sodium [Voltaren 1% Gel]) 1 applic TOP BID PRN PRN Reason: Pain Non-Formulary Medication (Lisinopril [Lisinopril]) 2.5 mg PO DAILY [facility] Non-Formulary Medication (Ubidecarenone [Co Q-10]) 10 mg PO DAILY [facility] Ondansetron HCl (Zofran) 4 mg IV ONETIME ONE Stop: 03/12/19 12:31 Last Admin: 03/12/19 12:48 Dose: 4 mg Warfarin Sodium (Coumadin) 6 mg PO ONETIME ONE Stop: 03/12/19 15:31 Last Admin: 03/12/19 16:44 Dose: 6 mg - Exam General: Alert, Oriented Lungs: Normal Respiratory Effort, Crackles (Lower bases) Cardiovascular: Bradycardia, Murmurs ( systolic, likely consistent with aortic stenosis) GI/Abdominal Exam: Normal Bowel Sounds, Soft, Non-Tender Back Exam: Other (Pitting edema extending to mid back) Extremities: Pedal Edema (+3 extending to mid back) Skin: Warm Neurological: No New Focal Deficit Sepsis Event Note - Evaluation Sepsis Screening Result: No Definite Risk - Focused Exam Vital Signs: Vital Signs Temp Pulse Pulse Resp BP BP BP 03/13/19 09:34 80 125/83 03/13/19 08:00 36.8 C 80 18 125/43 L 03/13/19 04:00 36.9 C 47 L 20 112/53 L 03/13/19 00:00 36.8 C 61 20 125/40 L 03/12/19 21:42 37.0 C 37 L 20 130/40 L Pulse Ox 03/13/19 09:34 03/13/19 08:00 99 03/13/19 04:00 97 03/13/19 00:00 100 03/12/19 21:42 97 Date Exam was Performed: 03/13/19 Time Exam was Performed: 10:45 - Problem List Review Problem List Initiated/Reviewed/Updated: Yes - Plan Plan:: Acute systolic CHF exacerbation Anasarca Shortness of breath, cough, orthopnea, BLE with anasarca on exam. BNP of 795. CXR showed cardiomegaly with pulmonary vascular congestion. Last echo with EF of 30-35%. Takes Bumex 2mg BID at home. Denied missing any dose. -Patient has massive fluid overload -Blood pressure seems reasonable, will start patient on Lasix drip with Bumex -Monitor weights daily -Twice daily BMP, monitor potassium Chronic microcytic anemia Hemoglobin of 8.6 and MCV 75.3. Likely due to iron deficiency. - Start Ferrous sulfate with daily vitamin C Hypokalemia Potassium of 3.4. - Replace Atrial fibrillation Chronic anticoagulation Bradycardia - Currently bradycardic - Dose carvedilol if HR>70 - Pharmacy consult for warfarin dosing CKD -Creatinine at baseline Hypothyroidism - Resume home Synthroid Acute on chronic back pain Likely worsened due to anasarca. - Pain meds IV and PO as needed - PT/OT Hypertension - Hold home Lisinopril due to soft blood pressures Goals of care and Code Status: DNR/DNI. Does not want any invasive or aggressive interventions or transfer to a high acuity facility. Would like to be made comfort cares if she declines clinically. DVT Prophylaxis: On Coumadin
[2019-03-13] MEDS ORDERED: Furosemide 100 MG in Sodium Chloride 0.9% 90 ML IV SCH (10:00)
[2019-03-13] MEDS: Furosemide 100 MG in Sodium Chloride 0.9% 90 ML IV SCH ×2 (11:00→18:52)
[2019-03-13 12:25] LABS: ANION GAP 14.6
[2019-03-13] MEDS ORDERED: Warfarin 2 MG Tab PO ONE (14:00)
[2019-03-13] MEDS: Ferrous Sulfate 325 MG Tab PO SCH (17:43)
[2019-03-13] MEDS: Ascorbic Acid 500 MG Tab PO SCH (17:43)
[2019-03-13] MEDS: oxyCODONE 5 MG Tab PO PRN (18:30)
[2019-03-14] MEDS: Furosemide 100 MG in Sodium Chloride 0.9% 90 ML IV SCH ×2 (05:14→15:20)
[2019-03-14] MEDS: Levothyroxine 50 MCG Tab PO SCH (06:23)
[2019-03-14 06:58] LABS: ANION GAP 14.6
[2019-03-14] MEDS: Carvedilol 3.125 MG Tab PO SCH ×2 (08:01→17:59)
[2019-03-14] MEDS: Metolazone 2.5 MG Tab PO SCH (08:02)
[2019-03-14] MEDS: Ferrous Sulfate 325 MG Tab PO SCH (08:02)
[2019-03-14] MEDS: Ascorbic Acid 500 MG Tab PO SCH (08:04)
[2019-03-14] MEDS: Psyllium Husk Powder Sugar Free 5.85 GM Packet PO SCH (08:04)
[2019-03-14] MEDS: Multivitamins,Therapeutic Tab PO SCH (08:04)
[2019-03-14] MEDS ORDERED: Potassium Chloride 10 MEQ Tab.ER PO ONE ×2 (09:49→13:15)
--- NOTE | 2019-03-14 09:49 | PCM.PN ---
- General Info Date of Service: 03/14/19 Admission Dx/Problem (Free Text): Admission Diagnosis/Problem Admission Diagnosis/Problem decompensated congestive heart failure Subjective Update: Patient continues to have significant lower extremity edema, patient made 1.7 L yesterday. Feels about the same as yesterday. - Review of Systems General: Reports: No Symptoms Pulmonary: Reports: Shortness of Breath Cardiovascular: Reports: Edema - Patient Data Vitals - Most Recent: Last Vital Signs Temp 37.1 C 03/14/19 07:11 Pulse 48 L 03/14/19 08:01 Resp 17 03/14/19 07:11 BP 104/47 L 03/14/19 08:01 Pulse Ox 99 03/14/19 07:11 Weight - Most Recent: 80.938 kg I&O - Last 24 Hours: Intake & Output 03/13/19 03/14/19 03/14/19 22:59 06:59 14:59 Intake Total 321 949 280 Output Total 1050 650 Balance -729 299 280 Lab Results Last 24 Hours: Laboratory Results - last 24 hr 03/13/19 03/14/19 03/14/19 Range/Units 11:55 06:15 06:15 PT 21.1 H (9.0-12.0) SEC INR 2.1 H (0.9-1.2) Sodium 135 138 (135-145) mmol/L Potassium 3.6 3.6 (3.6-5.0) mmol/L Chloride 96 L 99 L (101-111) mmol/L Carbon Dioxide 28.0 28.0 (21.0-31.0) mmol/L Anion Gap 14.6 14.6 BUN 28 H 30 H (7-18) mg/dL Creatinine 1.2 1.2 (0.6-1.3) mg/dL Est Cr Clr Drug Dosing 28.02 28.02 mL/min Estimated GFR (MDRD) 42 42 Glucose 142 H 125 H (74-105) mg/dL Calcium 9.0 8.7 (8.4-10.2) mg/dl Med Orders - Current: Current Medications Acetaminophen (Tylenol) 650 mg PO Q4H PRN PRN Reason: Pain (Mild 1-3)/fever Albuterol (Proventil Neb Soln) 2.5 mg NEB Q2H PRN PRN Reason: shortness of breath/wheezing Ascorbic Acid (Vitamin C) 500 mg PO DAILY [facility] Last Admin: 03/14/19 08:04 Dose: 500 mg Carvedilol (Coreg) 3.125 mg PO BIDMEALS [facility] Last Admin: 03/14/19 08:01 Dose: Not Given Docusate Sodium (Colace) 100 mg PO BID PRN PRN Reason: Constipation Ferrous Sulfate (Ferrous Sulfate) 325 mg PO WITHBREAKFAST [facility] Last Admin: 03/14/19 08:02 Dose: 325 mg Furosemide 100 mg/ Sodium (Chloride) 100 mls @ 10 mls/hr IV CONTINUOUS [facility] Last Admin: 03/14/19 05:14 Dose: 10 mg/hr, 10 mls/hr Levothyroxine Sodium (Synthroid) 50 mcg PO ACBREAKFAST [facility] Last Admin: 03/14/19 06:23 Dose: 50 mcg Metolazone (Zaroxolyn) 2.5 mg PO DAILY [facility] Last Admin: 03/14/19 08:02 Dose: 2.5 mg Morphine Sulfate (Morphine) 2 mg IVPUSH Q2H PRN PRN Reason: Pain (severe 7-10) Multivitamins (Thera) 1 each PO DAILY [facility] Last Admin: 03/14/19 08:04 Dose: 1 each Ondansetron HCl (Zofran Odt) 4 mg PO Q4H PRN PRN Reason: nausea, able to take PO Oxycodone HCl (Oxycodone) 5 mg PO Q4H PRN PRN Reason: Pain (moderate 4-6) Last Admin: 03/13/19 18:30 Dose: 5 mg Psyllium Husk (Metamucil Sugar Free) 1 pkt PO DAILY [facility] Last Admin: 03/14/19 08:04 Dose: 1 pkt Senna/Docusate Sodium (Senna Plus) 1 tab PO BID [facility] Last Admin: 03/14/19 08:03 Dose: 1 tab Sodium Chloride (Saline Flush) 10 ml FLUSH ASDIRECTED PRN PRN Reason: Keep Vein Open Last Admin: 03/13/19 09:32 Dose: 10 ml Sodium Chloride (Saline Flush) 10 ml FLUSH ASDIRECTED PRN PRN Reason: Keep Vein Open Warfarin Sodium (Pharmacy To Dose - Warfarin) 1 dose .XX ASDIRECTED [facility] Zolpidem Tartrate (Ambien) 5 mg PO BEDTIME PRN PRN Reason: Sleep Last Admin: 03/13/19 21:27 Dose: 5 mg Discontinued Medications Bumetanide (Bumex) 1 mg IVPUSH ONETIME ONE Stop: 03/12/19 12:30 Last Admin: 03/12/19 12:50 Dose: 1 mg Bumetanide (Bumex) 1 mg IVPUSH BID ONE Stop: 03/12/19 16:41 Last Admin: 03/12/19 17:58 Dose: Not Given Bumetanide (Bumex) 2 mg IVPUSH BID [facility] Last Admin: 03/13/19 09:25 Dose: 2 mg Enoxaparin Sodium (Lovenox) 30 mg SUBCUT DAILY [facility] Ferrous Sulfate (Ferrous Sulfate) 325 mg PO WITHBREAKFAST [facility] Furosemide 100 mg/ Sodium (Chloride) 100 mls @ 5 mls/hr IV TITRATE [facility] Morphine Sulfate (Morphine) 2 mg IVPUSH ONETIME ONE Stop: 03/12/19 12:31 Last Admin: 03/12/19 12:47 Dose: 2 mg Non-Formulary Medication (Diclofenac Sodium [Voltaren 1% Gel]) 1 applic TOP BID PRN PRN Reason: Pain Non-Formulary Medication (Lisinopril [Lisinopril]) 2.5 mg PO DAILY [facility] Non-Formulary Medication (Ubidecarenone [Co Q-10]) 10 mg PO DAILY [facility] Ondansetron HCl (Zofran) 4 mg IV ONETIME ONE Stop: 03/12/19 12:31 Last Admin: 03/12/19 12:48 Dose: 4 mg Warfarin Sodium (Coumadin) 6 mg PO ONETIME ONE Stop: 03/12/19 15:31 Last Admin: 03/12/19 16:44 Dose: 6 mg Warfarin Sodium (Coumadin) 6 mg PO ONETIME ONE Stop: 03/13/19 14:01 Last Admin: 03/13/19 13:42 Dose: 6 mg - Exam General: Alert, Oriented Lungs: Clear to Auscultation, Normal Respiratory Effort Cardiovascular: Regular Rhythm, Murmurs GI/Abdominal Exam: Normal Bowel Sounds, Soft, Non-Tender Extremities: Pedal Edema (Extending to lower back) Skin: Intact, Cool Psy/Mental Status: Alert, Normal Affect, Normal Mood Sepsis Event Note - Evaluation Sepsis Screening Result: No Definite Risk - Focused Exam Vital Signs: Vital Signs Temp Pulse Pulse Resp BP BP Pulse Ox 03/14/19 08:01 48 L 104/47 L 03/14/19 07:11 37.1 C 45 L 17 104/47 L 99 03/14/19 04:00 37.7 C 41 L 20 107/37 L 97 Date Exam was Performed: 03/14/19 Time Exam was Performed: 15:08 - Problem List Review Problem List Initiated/Reviewed/Updated: Yes - My Orders Last 24 Hours: My Active Orders 03/13/19 10:45 Furosemide [Lasix] 100 mg Sodium Chloride 0.9% [Normal Saline] 90 ml IV CONTINUOUS 03/13/19 18:38 Telemetry Monitoring [Cardiac Monitoring] [RC] . DIRECTED 03/14/19 09:00 metOLazone [Zaroxolyn] 2.5 mg PO DAILY 03/14/19 09:49 Potassium Chloride [Klor-Con 10] 60 meq PO ONETIME ONE 03/15/19 10:42 BASIC METABOLIC PANEL,BMP [CHEM] BID 03/16/19 10:42 BASIC METABOLIC PANEL,BMP [CHEM] BID 03/17/19 10:42 BASIC METABOLIC PANEL,BMP [CHEM] BID 03/18/19 10:42 BASIC METABOLIC PANEL,BMP [CHEM] BID 03/19/19 10:42 BASIC METABOLIC PANEL,BMP [CHEM] BID 03/20/19 10:42 BASIC METABOLIC PANEL,BMP [CHEM] BID 03/21/19 10:42 BASIC METABOLIC PANEL,BMP [CHEM] BID 03/22/19 10:42 BASIC METABOLIC PANEL,BMP [CHEM] BID 03/23/19 10:42 BASIC METABOLIC PANEL,BMP [CHEM] BID 03/24/19 10:42 BASIC METABOLIC PANEL,BMP [CHEM] BID 03/25/19 10:42 BASIC METABOLIC PANEL,BMP [CHEM] BID 03/26/19 10:42 BASIC METABOLIC PANEL,BMP [CHEM] BID 03/27/19 10:42 BASIC METABOLIC PANEL,BMP [CHEM] BID 03/28/19 10:42 BASIC METABOLIC PANEL,BMP [CHEM] BID 03/29/19 10:42 BASIC METABOLIC PANEL,BMP [CHEM] BID 03/30/19 10:42 BASIC METABOLIC PANEL,BMP [CHEM] BID 03/31/19 10:42 BASIC METABOLIC PANEL,BMP [CHEM] BID 04/01/19 10:42 BASIC METABOLIC PANEL,BMP [CHEM] BID - Plan Plan:: Acute systolic CHF exacerbation Anasarca Shortness of breath, cough, orthopnea, BLE with anasarca on exam. BNP of 795. CXR showed cardiomegaly with pulmonary vascular congestion. Last echo with EF of 30-35%. Takes Bumex 2mg BID at home. Denied missing any dose. -Patient has massive fluid overload -Blood pressure seems reasonable, will continue patient on Lasix drip with Bumex -Monitor weights daily -Twice daily BMP, monitor potassium Chronic microcytic anemia Hemoglobin of 8.6 and MCV 75.3. Likely due to iron deficiency. - Start Ferrous sulfate with daily vitamin C Hypokalemia - Replace Atrial fibrillation Chronic anticoagulation Bradycardia - Currently bradycardic - Dose carvedilol if HR>70 - Pharmacy consult for warfarin dosing CKD -Creatinine at baseline Hypothyroidism - Resume home Synthroid Acute on chronic back pain Likely worsened due to anasarca. - Pain meds IV and PO as needed - PT/OT Hypertension - Hold home Lisinopril due to soft blood pressures Goals of care and Code Status: DNR/DNI. Does not want any invasive or aggressive interventions or transfer to a high acuity facility. Would like to be made comfort cares if she declines clinically. DVT Prophylaxis: On Coumadin
[2019-03-14] MEDS ORDERED: Warfarin 2 MG Tab PO ONE ×2 (14:00)
[2019-03-14] MEDS ORDERED: Benzocaine/Docusate Sodium 20-283 MG/5 ML Enema RECTAL ONE (14:30)
[2019-03-14] MEDS: oxyCODONE 5 MG Tab PO PRN ×2 (16:24→21:15)
[2019-03-15] MEDS: Furosemide 100 MG in Sodium Chloride 0.9% 90 ML IV SCH ×2 (01:28→12:43)
[2019-03-15] MEDS: Levothyroxine 50 MCG Tab PO SCH (06:16)
[2019-03-15 06:53] LABS: ANION GAP 13.9
[2019-03-15] MEDS: Carvedilol 3.125 MG Tab PO SCH ×2 (07:38→09:26)
[2019-03-15] MEDS: Ferrous Sulfate 325 MG Tab PO SCH ×2 (07:38→09:27)
[2019-03-15] MEDS: Multivitamins,Therapeutic Tab PO SCH ×2 (08:44→09:27)
[2019-03-15] MEDS: Psyllium Husk Powder Sugar Free 5.85 GM Packet PO SCH ×2 (08:44→09:27)
[2019-03-15] MEDS: Ascorbic Acid 500 MG Tab PO SCH ×2 (08:45→09:27)
[2019-03-15] MEDS: Metolazone 2.5 MG Tab PO SCH (09:27)
[2019-03-15 11:29] VITALS: BP 100/54; PULSE 48
[2019-03-15] MEDS ORDERED: Warfarin 2 MG Tab PO ONE (14:00)
[2019-03-15] MEDS: oxyCODONE 5 MG Tab PO PRN (14:41)
--- NOTE | 2019-03-15 14:59 | PCM.DCSUM1 ---
Discharge Summary - Hospital Course Free Text/Narrative:: Susy Hein is an 88 y.o female with a medical history of systolic CHF ( last EF 30-35%), Afib, smalll bowel obstruction, chronic back pain and CKD who presented with complains of shortness of breath and bilateral leg swelling. Patient was found to have massive fluid overload approximately 30 pound weight gain. Initial EKG on admission showed bradycardia that was regular, in the setting of underlying Afib, consistent with junctional escape rhythm with CHB. Patient was adamantly refusing transfer, but following multiple discussions, patient was in agreement to be transferred for pacemaker placement, and potential ischemia workup. Patient was treated for decompensated systolic heart failure with Lasix drip at 10 mg/h as well as metolazone. INR on day of discharge was 2.1. Patient was transferred to [facility] in stable condition. Dr. Nichols, Dr. Louie accepted patient. - Discharge Data Discharge Date: 03/15/19 Discharge Disposition: DC/Tfer to Acute Hospital 02 Condition: Stable - Referral to Home Health Primary Care Physician: PCP Unobtainable - Discharge Plan *PRESCRIPTION DRUG MONITORING PROGRAM REVIEWED*: No *COPY OF PRESCRIPTION DRUG MONITORING REPORT IN PATIENT EVANGELISTA: No Home Medications: Home Meds Multivitamin [Multivitamins] 1 tab PO DAILY 11/09/15 [History] Warfarin [Coumadin] 6 mg PO .MONTUETHURFRISAT 11/09/15 [History] Warfarin [Coumadin] 3 mg PO .SUN 04/16/18 [History] Acetaminophen [Tylenol Extra Strength] 500 mg PO Q4H PRN 03/12/19 [History] Bumetanide 2 mg PO BID 03/12/19 [History] Levothyroxine 50 mcg PO ACBREAKFAST 03/12/19 [History] Lisinopril [Zestril] 2.5 mg PO DAILY 03/12/19 [History] Psyllium Husk (With Sugar) [Metamucil Powder] 1 tbsp PO DAILY 03/12/19 [History] Sennosides/Docusate Sodium [Senna Plus 8.6-50 mg Tablet] 1 tab PO BID 03/12/19 [ History] Ubidecarenone [Co Q-10] 10 mg PO DAILY 03/12/19 [History] lisinopriL [Lisinopril] 2.5 mg PO DAILY 03/12/19 [History] Furosemide [Lasix] 100 mg IV CONTINUOUS vial 03/15/19 [Rx] metOLazone [Zaroxolyn] 2.5 mg PO DAILY tablet 03/15/19 [Rx] Forms: ED Department Discharge Referrals: PCP,Unobtain [Primary Care Provider] - - Discharge Summary/Plan Comment DC Time >30 min.: Yes - General Info Date of Service: 03/15/19 Admission Dx/Problem (Free Text: Admission Diagnosis/Problem Admission Diagnosis/Problem decompensated congestive heart failure Subjective Update: Continues to have massive fluid overload. Complained of back pain. - Patient Data Vitals - Most Recent: Last Vital Signs Temp 37.6 C 03/15/19 11:28 Pulse 48 L 03/15/19 11:28 Resp 18 03/15/19 11:28 BP 100/54 L 03/15/19 11:28 Pulse Ox 94 L 03/15/19 11:28 Weight - Most Recent: 78.199 kg I&O - Last 24 hours: Intake & Output 03/14/19 03/15/19 03/15/19 22:59 06:59 14:59 Intake Total 900 320 Output Total 1000 2000 Balance 900 -1000 -1680 Lab Results - Last 24 hrs: Laboratory Results - last 24 hr 03/15/19 03/15/19 Range/Units 05:45 05:45 PT 20.9 H (9.0-12.0) SEC INR 2.1 H (0.9-1.2) Sodium 137 (135-145) mmol/L Potassium 3.9 (3.6-5.0) mmol/L Chloride 98 L (101-111) mmol/L Carbon Dioxide 29.0 (21.0-31.0) mmol/L Anion Gap 13.9 BUN 34 H (7-18) mg/dL Creatinine 1.4 H (0.6-1.3) mg/dL Est Cr Clr Drug Dosing 24.02 mL/min Estimated GFR (MDRD) 35 Glucose 115 H (74-105) mg/dL Calcium 8.9 (8.4-10.2) mg/dl Med Orders - Current: Current Medications Acetaminophen (Tylenol) 650 mg PO Q4H PRN PRN Reason: Pain (Mild 1-3)/fever Albuterol (Proventil Neb Soln) 2.5 mg NEB Q2H PRN PRN Reason: shortness of breath/wheezing Ascorbic Acid (Vitamin C) 500 mg PO DAILY [facility] Last Admin: 03/15/19 09:27 Dose: 500 mg Carvedilol (Coreg) 3.125 mg PO BIDMEALS [facility] Last Admin: 03/15/19 09:26 Dose: Not Given Docusate Sodium (Colace) 100 mg PO BID PRN PRN Reason: Constipation Ferrous Sulfate (Ferrous Sulfate) 325 mg PO WITHBREAKFAST [facility] Last Admin: 03/15/19 09:27 Dose: 325 mg Furosemide 100 mg/ Sodium (Chloride) 100 mls @ 10 mls/hr IV CONTINUOUS [facility] Last Admin: 03/15/19 12:43 Dose: 10 mg/hr, 10 mls/hr Levothyroxine Sodium (Synthroid) 50 mcg PO ACBREAKFAST [facility] Last Admin: 03/15/19 06:16 Dose: 50 mcg Metolazone (Zaroxolyn) 2.5 mg PO DAILY [facility] Last Admin: 03/15/19 09:27 Dose: 2.5 mg Morphine Sulfate (Morphine) 2 mg IVPUSH Q2H PRN PRN Reason: Pain (severe 7-10) Multivitamins (Thera) 1 each PO DAILY [facility] Last Admin: 03/15/19 09:27 Dose: 1 each Ondansetron HCl (Zofran Odt) 4 mg PO Q4H PRN PRN Reason: nausea, able to take PO Oxycodone HCl (Oxycodone) 5 mg PO Q4H PRN PRN Reason: Pain (moderate 4-6) Last Admin: 03/15/19 14:41 Dose: 5 mg Psyllium Husk (Metamucil Sugar Free) 1 pkt PO DAILY [facility] Last Admin: 03/15/19 09:27 Dose: 1 pkt Senna/Docusate Sodium (Senna Plus) 1 tab PO BID [facility] Last Admin: 03/15/19 09:27 Dose: 1 tab Sodium Chloride (Saline Flush) 10 ml FLUSH ASDIRECTED PRN PRN Reason: Keep Vein Open Last Admin: 03/13/19 09:32 Dose: 10 ml Sodium Chloride (Saline Flush) 10 ml FLUSH ASDIRECTED PRN PRN Reason: Keep Vein Open Warfarin Sodium (Pharmacy To Dose - Warfarin) 1 dose .XX ASDIRECTED [facility] Zolpidem Tartrate (Ambien) 5 mg PO BEDTIME PRN PRN Reason: Sleep Last Admin: 03/13/19 21:27 Dose: 5 mg Discontinued Medications Bumetanide (Bumex) 1 mg IVPUSH ONETIME ONE Stop: 03/12/19 12:30 Last Admin: 03/12/19 12:50 Dose: 1 mg Bumetanide (Bumex) 1 mg IVPUSH BID ONE Stop: 03/12/19 16:41 Last Admin: 03/12/19 17:58 Dose: Not Given Bumetanide (Bumex) 2 mg IVPUSH BID [facility] Last Admin: 03/13/19 09:25 Dose: 2 mg Docusate Sodium/Benzocaine (Enemeez Plus Mini Enema) 1 each RECTAL ONETIME ONE Stop: 03/14/19 14:31 Last Admin: 03/14/19 15:02 Dose: 1 each Enoxaparin Sodium (Lovenox) 30 mg SUBCUT DAILY [facility] Ferrous Sulfate (Ferrous Sulfate) 325 mg PO WITHBREAKFAST [facility] Furosemide 100 mg/ Sodium (Chloride) 100 mls @ 5 mls/hr IV TITRATE [facility] Morphine Sulfate (Morphine) 2 mg IVPUSH ONETIME ONE Stop: 03/12/19 12:31 Last Admin: 03/12/19 12:47 Dose: 2 mg Non-Formulary Medication (Diclofenac Sodium [Voltaren 1% Gel]) 1 applic TOP BID PRN PRN Reason: Pain Non-Formulary Medication (Lisinopril [Lisinopril]) 2.5 mg PO DAILY [facility] Non-Formulary Medication (Ubidecarenone [Co Q-10]) 10 mg PO DAILY [facility] Ondansetron HCl (Zofran) 4 mg IV ONETIME ONE Stop: 03/12/19 12:31 Last Admin: 03/12/19 12:48 Dose: 4 mg Potassium Chloride (Klor-Con 10) 60 meq PO ONETIME ONE Stop: 03/14/19 13:16 Last Admin: 03/14/19 14:26 Dose: 60 meq Warfarin Sodium (Coumadin) 6 mg PO ONETIME ONE Stop: 03/12/19 15:31 Last Admin: 03/12/19 16:44 Dose: 6 mg Warfarin Sodium (Coumadin) 6 mg PO ONETIME ONE Stop: 03/13/19 14:01 Last Admin: 03/13/19 13:42 Dose: 6 mg Warfarin Sodium (Coumadin) 6 mg PO ONETIME ONE Stop: 03/14/19 14:01 Last Admin: 03/14/19 15:01 Dose: 6 mg Warfarin Sodium (Coumadin) 6 mg PO ONETIME ONE Stop: 03/15/19 14:01 Last Admin: 03/15/19 14:38 Dose: 6 mg - Exam General: Reports: Alert, Oriented Lungs: Reports: Clear to Auscultation, Normal Respiratory Effort Cardiovascular: Reports: Bradycardia, Murmurs (Systolic) GI/Abdominal Exam: Normal Bowel Sounds, Soft, Non-Tender Back Exam: Reports: Other ( pitting edema extending to mid back) Extremities: Pedal Edema (+3 extending to mid back) Skin: Reports: Intact, Cool Psy/Mental Status: Reports: Alert, Normal Affect, Normal Mood
== END 2019-03-15 15:15 | DRG 291 ==
LOC: DL.ED 11:30 → DL.MS 13:22
PROVIDERS: ADMIT Internal Medicine; ATTEND Internal Medicine
DX: I13.0 Hypertensive heart and chronic kidney disease with heart failure and stage 1 through stage 4 chronic kidney disease, or unspecified chronic kidney disease (principal); I50.43 Acute on chronic combined systolic (congestive) and diastolic (congestive) heart failure; E87.6 Hypokalemia; I48.91 Unspecified atrial fibrillation; I48.20 Chronic atrial fibrillation, unspecified; E78.00 Pure hypercholesterolemia, unspecified; H54.7 Unspecified visual loss; G89.29 Other chronic pain; M54.5 Low back pain; M19.90 Unspecified osteoarthritis, unspecified site; N18.9 Chronic kidney disease, unspecified; R00.1 Bradycardia, unspecified; Z85.42 Personal history of malignant neoplasm of other parts of uterus; E03.9 Hypothyroidism, unspecified; F41.9 Anxiety disorder, unspecified; Z90.710 Acquired absence of both cervix and uterus; Z80.3 Family history of malignant neoplasm of breast; Z80.8 Family history of malignant neoplasm of other organs or systems; Z80.0 Family history of malignant neoplasm of digestive organs; Z88.8 Allergy status to other drugs, medicaments and biological substances; E11.22 Type 2 diabetes mellitus with diabetic chronic kidney disease; Z79.890 Hormone replacement therapy; Z79.01 Long term (current) use of anticoagulants; Z98.49 Cataract extraction status, unspecified eye; Z90.49 Acquired absence of other specified parts of digestive tract; Z79.899 Other long term (current) drug therapy
CPT/HCPCS: 36415; 51702; 71045; 80053; 81001; 83880; 85025; 85610; 93005; 96374; 96375; 99285; J2270; J2405; J3490; 80048; 83735; 93010; 99284; A9270-GY; J1940; J7050

== ENCOUNTER 2019-03-19 08:35 | Inpatient (IN) | payer MEDICARE, BC ==
[2019-03-19] MEDS ORDERED: Acetaminophen 325 MG Tab PO PRN (12:19)
[2019-03-19] MEDS ORDERED: Ondansetron 4 MG/2 ML SDV IVPUSH PRN (12:19)
--- NOTE | 2019-03-19 14:45 | PCM.HP ---
H&P History of Present Illness - General Date of Service: 03/19/19 Admit Problem/Dx: Admission Diagnosis/Problem Admission Diagnosis/Problem CHF, Congestive heart failure - History of Present Illness Initial Comments - Free Text/Narative: Susy Hein is an 88 y.o female with a medical history of systolic CHF, Afib, smalll bowel obstruction, chronic back pain and CKD who presented back from [facility] after being transferred there for further management of complete heart block and CHF. Patient was initially admitted here, and was treated for CHF, however her EKG showed A. fib with complete heart block. Patient was initially resistant to transfer, but later she was in agreement. She underwent permanent single-chamber pacemaker placement. Patient was diuresed at [facility], and has lost significant water weight. She was transferred back here for further PT/OT. On interview, patient reported loose bowel movement. She said that she has been constipated at all true, and this is her first bowel movement in quite some time. She denies any other complaints. She feels better, and her breathing is improved significantly. - Related Data Allergies/Adverse Reactions: Allergies Allergy/AdvReac Type Severity Reaction Status Date / Time calcium Allergy Cannot Verified 03/19/19 09:44 Remember ezetimibe Allergy Cannot Verified 03/19/19 09:44 Remember hydrochlorothiazide Allergy Dizziness Verified 03/19/19 09:44 simvastatin Allergy Cannot Verified 03/19/19 09:44 Remember Home Medications: Home Meds Warfarin [Coumadin] 6 mg PO .MONTUETHURFRISAT 11/09/15 [History] Warfarin [Coumadin] 3 mg PO .SUN 04/16/18 [History] Acetaminophen [Tylenol Extra Strength] 500 mg PO Q4H PRN 03/12/19 [History] Bumetanide 2 mg PO BID 03/12/19 [History] Levothyroxine 50 mcg PO ACBREAKFAST 03/12/19 [History] Psyllium Husk (With Sugar) [Metamucil Powder] 1 tbsp PO DAILY 03/12/19 [History] Sennosides/Docusate Sodium [Senna Plus 8.6-50 mg Tablet] 1 tab PO BID 03/12/19 [ History] Ubidecarenone [Co Q-10] 10 mg PO DAILY 03/12/19 [History] lisinopriL [Lisinopril] 2.5 mg PO DAILY 03/12/19 [History] Carvedilol [Coreg] 3.125 mg PO BID 03/19/19 [History] Diclofenac Sodium [Voltaren 1% Gel] 1 applic TOP BID 03/19/19 [History] Docusate Sodium [DOK] 100 mg PO DAILY 03/19/19 [History] Lutein/Minerals/Vit A,C & E [Ocuvite] 1 tab PO DAILY 03/19/19 [History] Non-Formulary Medication [NF Drug] 1 applic TOP QID PRN 03/19/19 [History] Non-Formulary Medication [NF Drug] 1 cap PO BID 03/19/19 [History] Non-Formulary Medication [NF Drug] 1 cap PO DAILY 03/19/19 [History] Non-Formulary Medication [NF Drug] 1 tab PO TID 03/19/19 [History] Non-Formulary Medication [NF Drug] 2 tab PO BID 03/19/19 [History] Non-Formulary Medication [NF Drug] 15 drop SL TID PRN 03/19/19 [History] Past Medical History HEENT History: Reports: Cataract, Impaired Vision Cardiovascular History: Reports: Afib, Heart Failure, High Cholesterol, Hypertension, Pacemaker Respiratory History: Reports: None Gastrointestinal History: Reports: Bowel Obstruction, Diverticulosis, Hemorrhoids Genitourinary History: Reports: Chronic Renal Insuffiency PROMOTIONS EXECUTIVE History: Reports: None Musculoskeletal History: Reports: Arthritis, Back Pain, Chronic Neurological History: Reports: None Psychiatric History: Reports: Anxiety Endocrine/Metabolic History: Reports: Diabetes, Type II, Hypothyroidism Hematologic History: Reports: None Immunologic History: Reports: None Oncologic (Cancer) History: Reports: Uterine Dermatologic History: Reports: None - Infectious Disease History Infectious Disease History: Reports: Chicken Pox, Measles, Mumps - Past Surgical History Head Surgeries/Procedures: Reports: None HEENT Surgical History: Reports: Cataract Surgery, Tonsillectomy Cardiovascular Surgical History: Reports: Pacer, Other (See Below) Other Cardiovascular Surgeries/Procedures: Pacemaker placement on March 16 2019 GI Surgical History: Reports: Appendectomy, Cholecystectomy Female Surgical History: Reports: Hysterectomy, Other (See Below) Other Female Surgeries/Procedures: lymph node removal Oncologic Surgical History: Reports: Biopsy of Breast Social & Family History - Family History Family Medical History: Noncontributory Cardiac: Reports: Arrhythmia, High Cholesterol, [place] Neurological: Reports: TIA Endocrine/Metabolic: Reports: Diabetes, type II Oncologic: Reports: Breast, Thyroid, Other (See Below) Other Oncologic Family History: "STOMACH CANCER" - Tobacco Use Smoking Status *Q: Never Smoker Second Hand Smoke Exposure: No - Caffeine Use Caffeine Use: Reports: Coffee - Recreational Drug Use Recreational Drug Use: No - Living Situation & Occupation Living situation: Reports: Alone Occupation: Retired H&P Review of Systems - Review of Systems: Review Of Systems: Comprehensive ROS is negative, except as noted in HPI. Exam - Exam Exam: See Below - Vital Signs Vital Signs: Last Vital Signs Temp 37.1 C 03/19/19 12:19 Pulse 72 03/19/19 12:19 Resp 18 03/19/19 12:19 BP 125/60 03/19/19 12:19 Pulse Ox 100 03/19/19 12:19 Weight: 73.028 kg - Exam General: Alert, Oriented Lungs: Clear to Auscultation, Normal Respiratory Effort Cardiovascular: Regular Rate, Systolic Murmur, Diastolic Murmur GI/Abdominal Exam: Normal Bowel Sounds, Soft, Non-Tender Extremities: Normal Inspection, Pedal Edema (+2 extending to lower thighs, improved significantly compared to last week.) Skin: Warm, Dry, Intact Psychiatric: Alert, Normal Affect, Normal Mood Problem List Initiated/Reviewed/Updated: Yes Orders Last 24hrs: Active Orders 24 hr Category Date Time Status Patient Status [ADT] Routine ADT 03/19/19 12:20 Active Oxygen Therapy [RC] PRN Care 03/19/19 12:20 Active Vital Signs [RC] 08,20 Care 03/19/19 12:19 Active OT Evaluation and Treatment [CONS] Routine Cons 03/19/19 13:57 Active PT Evaluation and Treatment [CONS] Routine Cons 03/19/19 13:57 Active 2 Gram Sodium Diet [DIET] Diet 03/19/19 Lunch Active BASIC METABOLIC PANEL,BMP [CHEM] AM Lab 03/20/19 05:11 Ordered BASIC METABOLIC PANEL,BMP [CHEM] AM Lab 03/21/19 05:11 Ordered BASIC METABOLIC PANEL,BMP [CHEM] AM Lab 03/22/19 05:11 Ordered BASIC METABOLIC PANEL,BMP [CHEM] AM Lab 03/23/19 05:11 Ordered Acetaminophen [Tylenol] Med 03/19/19 12:19 Active 650 mg PO Q4H PRN Bumetanide [Bumetanide] Med 03/19/19 14:45 Ordered 2 mg PO BID Levothyroxine Med 03/20/19 06:00 Ordered 50 mcg PO ACBREAKFAST Lutein/Minerals/Vit A,C & E [I-Delaney] Med 03/20/19 09:00 Ordered 1 each PO DAILY Ondansetron [Zofran] Med 03/19/19 12:19 Active 4 mg IVPUSH Q4H PRN Pharmacy to Dose - Warfarin Med 03/19/19 14:45 Ordered 1 dose .XX ASDIRECTED carvediloL [Coreg] Med 03/19/19 21:00 Ordered 3.125 mg PO BID lisinopriL [Lisinopril] Med 03/20/19 09:00 Ordered 2.5 mg PO DAILY Resuscitation Status Routine Resus Stat 03/19/19 12:19 Ordered Medication Orders Acetaminophen (Tylenol) 650 mg PO Q4H PRN PRN Reason: Pain (Mild 1-3)/fever Carvedilol (Coreg) 3.125 mg PO BID [facility] Levothyroxine Sodium (Levothyroxine) 50 mcg PO ACBREAKFAST [facility] Multivitamins/Minerals (I-Delaney) 1 each PO DAILY [facility] Non-Formulary Medication (Bumetanide [Bumetanide]) 2 mg PO BID [facility] Non-Formulary Medication (Lisinopril [Lisinopril]) 2.5 mg PO DAILY [facility] Ondansetron HCl (Zofran) 4 mg IVPUSH Q4H PRN PRN Reason: Nausea/Vomiting Warfarin Sodium (Pharmacy To Dose - Warfarin) 1 dose .XX ASDIRECTED [facility] Assessment/Plan Comment:: systolic CHF, chronic -Patient was recently admitted here for decompensated systolic heart failure, and was found to be in complete heart block -Patient was transferred to [facility] and is s/p PPM -she feels much better and she has significant amount of water weight -will continue bumex, check potassium Chronic microcytic anemia -will monitor periodically Atrial fibrillation with complete heart block status post permanent pacemaker placement -Pharmacy to dose Coumadin -Continue beta-evelio CKD -Creatinine at baseline -Monitor creatinine daily Hypothyroidism - Resume home Synthroid Hypertension -Continue home meds DVT prophylaxis -Warfarin
[2019-03-19] MEDS: Bumetanide 1 MG Tab PO SCH (16:10)
[2019-03-19] MEDS ORDERED: Warfarin 5 MG Tab PO ONE (19:00)
[2019-03-19] MEDS: Carvedilol 3.125 MG Tab PO SCH (20:28)
[2019-03-20] MEDS: Levothyroxine 50 MCG Tab PO SCH (05:55)
[2019-03-20 06:52] LABS: ANION GAP 14.3
[2019-03-20] MEDS: Lutein/Minerals/Vit A,C & E Tab PO SCH (08:36)
[2019-03-20] MEDS: Bumetanide 1 MG Tab PO SCH ×2 (08:36→14:38)
[2019-03-20] MEDS: Lisinopril 5 MG Tab PO SCH (08:37)
[2019-03-20] MEDS: Carvedilol 3.125 MG Tab PO SCH ×2 (08:37→21:08)
[2019-03-20] MEDS: TROLAMINE SALICYLATE 10% TOP PRN ×2 (12:57→21:10)
[2019-03-20] MEDS: [UNRECOGNIZED DRUG - OTHER] SL PRN ×2 (12:57→21:09)
[2019-03-20] MEDS ORDERED: Warfarin 2 MG Tab PO ONE (14:00)
[2019-03-21] MEDS: Levothyroxine 50 MCG Tab PO SCH (06:39)
[2019-03-21 06:53] LABS: ANION GAP 12.9; CHLORIDE,CL 97 mmol/L (101-111); SODIUM,NA 138 mmol/L (135-145)
[2019-03-21] MEDS: Lutein/Minerals/Vit A,C & E Tab PO SCH (08:54)
[2019-03-21] MEDS: Carvedilol 3.125 MG Tab PO SCH ×2 (08:54→21:18)
[2019-03-21] MEDS: Bumetanide 1 MG Tab PO SCH ×2 (08:54→14:38)
[2019-03-21] MEDS: Lisinopril 5 MG Tab PO SCH (08:55)
[2019-03-21] MEDS: Potassium Chloride 10 MEQ in Premix Bag 1 BAG IV SCH ×3 (11:21→14:26)
[2019-03-21] MEDS: TROLAMINE SALICYLATE 10% TOP PRN ×2 (11:22→21:21)
[2019-03-21] MEDS: [UNRECOGNIZED DRUG - OTHER] SL PRN (11:22)
[2019-03-21] MEDS ORDERED: Warfarin 2 MG Tab PO ONE (14:00)
[2019-03-22] MEDS: Levothyroxine 50 MCG Tab PO SCH (05:45)
[2019-03-22 06:53] LABS: ANION GAP 13.3
[2019-03-22] MEDS: Carvedilol 3.125 MG Tab PO SCH ×2 (08:24→22:37)
[2019-03-22] MEDS: Lisinopril 5 MG Tab PO SCH (08:24)
[2019-03-22] MEDS: Lutein/Minerals/Vit A,C & E Tab PO SCH (08:24)
[2019-03-22] MEDS: Bumetanide 1 MG Tab PO SCH ×2 (08:24→13:37)
[2019-03-22] MEDS: TROLAMINE SALICYLATE 10% TOP PRN (13:41)
[2019-03-22] MEDS ORDERED: Warfarin 2 MG Tab PO ONE (14:00)
[2019-03-22] MEDS: Potassium Chloride 10 MEQ Tab.ER PO SCH (18:40)
[2019-03-22] MEDS: [UNRECOGNIZED DRUG - OTHER] PO SCH (18:41)
[2019-03-23] MEDS: Levothyroxine 50 MCG Tab PO SCH (06:49)
[2019-03-23] MEDS: Potassium Chloride 10 MEQ Tab.ER PO SCH ×2 (09:33→17:39)
[2019-03-23] MEDS: Lisinopril 5 MG Tab PO SCH (09:33)
[2019-03-23] MEDS: Lutein/Minerals/Vit A,C & E Tab PO SCH (09:33)
[2019-03-23] MEDS: Bumetanide 1 MG Tab PO SCH ×2 (09:33→15:23)
[2019-03-23] MEDS: [UNRECOGNIZED DRUG - OTHER] PO SCH ×2 (09:34→17:39)
[2019-03-23] MEDS: [UNRECOGNIZED DRUG - OTHER] PO SCH (09:34)
[2019-03-23] MEDS: Carvedilol 3.125 MG Tab PO SCH ×2 (09:34→21:17)
[2019-03-23] MEDS ORDERED: Benzocaine/Cetylpyridinium/Menthol Lozenge MUCMEM PRN (10:08)
[2019-03-23] MEDS ORDERED: Warfarin 2 MG Tab PO ONE (14:00)
[2019-03-23] MEDS: TROLAMINE SALICYLATE 10% TOP PRN (21:16)
[2019-03-24] MEDS: Levothyroxine 50 MCG Tab PO SCH (05:20)
[2019-03-24] MEDS: Lisinopril 5 MG Tab PO SCH (09:17)
[2019-03-24] MEDS: Potassium Chloride 10 MEQ Tab.ER PO SCH ×2 (09:17→17:47)
[2019-03-24] MEDS: Bumetanide 1 MG Tab PO SCH ×2 (09:17→13:24)
[2019-03-24] MEDS: Lutein/Minerals/Vit A,C & E Tab PO SCH (09:17)
[2019-03-24] MEDS: Carvedilol 3.125 MG Tab PO SCH ×2 (09:17→21:41)
[2019-03-24] MEDS: [UNRECOGNIZED DRUG - OTHER] PO SCH ×2 (09:20→17:47)
[2019-03-24] MEDS: [UNRECOGNIZED DRUG - OTHER] PO SCH (09:20)
[2019-03-24] MEDS ORDERED: Warfarin 2 MG Tab PO ONE (14:00)
[2019-03-25] MEDS: Levothyroxine 50 MCG Tab PO SCH (06:33)
[2019-03-25] MEDS: Bumetanide 1 MG Tab PO SCH ×2 (08:49→14:32)
[2019-03-25] MEDS: Potassium Chloride 10 MEQ Tab.ER PO SCH ×2 (08:50→18:08)
[2019-03-25] MEDS: Lisinopril 5 MG Tab PO SCH (08:51)
[2019-03-25] MEDS: Lutein/Minerals/Vit A,C & E Tab PO SCH (08:52)
[2019-03-25] MEDS: Carvedilol 3.125 MG Tab PO SCH ×2 (08:53→21:11)
[2019-03-25] MEDS: [UNRECOGNIZED DRUG - OTHER] PO SCH ×2 (08:55→18:09)
[2019-03-25] MEDS: [UNRECOGNIZED DRUG - OTHER] PO SCH (08:55)
--- NOTE | 2019-03-25 10:12 | PCM.DCSUM1 ---
Discharge Summary - Hospital Course Free Text/Narrative:: Susy Hein is an 88 y.o female with a medical history of systolic CHF, Afib, smalll bowel obstruction, chronic back pain and CKD who presented back from [facility] after being transferred there for further management of complete heart block and CHF. Patient was initially admitted here, and was treated for CHF, however her EKG showed A. fib with complete heart block. She underwent permanent single-chamber pacemaker placement. Patient was diuresed at [facility], and has lost significant water weight. She was transferred back here for further PT/OT. Her stay has been uncomplicated. She has been compliant with PT /OT. She was discharged home in a stable condition with plan to follow-up with PCP and cardiology. Diagnosis: Stroke: No - Discharge Data Discharge Date: 03/26/19 Discharge Disposition: Home, Self-Care 01 Condition: Good - Referral to Home Health Primary Care Physician: Lane Zaragoza MD - Patient Summary/Data Consults: Consultations 03/19/19 13:57 OT Evaluation and Treatment [CONS] Routine PT Evaluation and Treatment [CONS] Routine - Patient Instructions Diet: Heart Healthy Diet Fluid Restriction: 1500 mL Activity: As Tolerated Driving: May Drive Today Showering/Bathing: May Shower Notify Provider of: Fever, Increased Pain, Swelling and Redness, Nausea and/or Vomiting - Discharge Plan *PRESCRIPTION DRUG MONITORING PROGRAM REVIEWED*: Not Applicable *COPY OF PRESCRIPTION DRUG MONITORING REPORT IN PATIENT EVANGELISTA: Not Applicable Prescriptions/Med Rec: Potassium Chloride [Klor-Con 10] 20 meq PO DAILY #60 tab.er Home Medications: Home Meds Warfarin [Coumadin] 6 mg PO .MONTUETHURFRISAT 11/09/15 [History] Warfarin [Coumadin] 3 mg PO .SUN 04/16/18 [History] Acetaminophen [Tylenol Extra Strength] 500 mg PO Q4H PRN 03/12/19 [History] Bumetanide 2 mg PO BID 03/12/19 [History] Levothyroxine 50 mcg PO ACBREAKFAST 03/12/19 [History] Psyllium Husk (With Sugar) [Metamucil Powder] 1 tbsp PO DAILY 03/12/19 [History] Sennosides/Docusate Sodium [Senna Plus 8.6-50 mg Tablet] 1 tab PO BID 03/12/19 [ History] Ubidecarenone [Co Q-10] 10 mg PO DAILY 03/12/19 [History] lisinopriL [Lisinopril] 2.5 mg PO DAILY 03/12/19 [History] Carvedilol [Coreg] 3.125 mg PO BID 03/19/19 [History] Diclofenac Sodium [Voltaren 1% Gel] 1 applic TOP BID 03/19/19 [History] Docusate Sodium [DOK] 100 mg PO DAILY 03/19/19 [History] Lutein/Minerals/Vit A,C & E [Ocuvite] 1 tab PO DAILY 03/19/19 [History] Non-Formulary Medication [NF Drug] 1 applic TOP QID PRN 03/19/19 [History] Non-Formulary Medication [NF Drug] 1 cap PO BID 03/19/19 [History] Non-Formulary Medication [NF Drug] 1 cap PO DAILY 03/19/19 [History] Non-Formulary Medication [NF Drug] 1 tab PO TID 03/19/19 [History] Non-Formulary Medication [NF Drug] 2 tab PO BID 03/19/19 [History] Non-Formulary Medication [NF Drug] 15 drop SL TID PRN 03/19/19 [History] Potassium Chloride [Klor-Con 10] 20 meq PO DAILY #60 tab.er 03/25/19 [Rx] Oxygen Therapy Mode: Room Air Patient Handouts: Potassium chloride tablets, extended-release tablets or capsules, Pacemaker Implantation, Adult, Care After, Heart Failure, [id number] - Discharge Summary/Plan Comment DC Time >30 min.: Yes - General Info Date of Service: 03/25/19 Admission Dx/Problem (Free Text: Admission Diagnosis/Problem Admission Diagnosis/Problem CHF, Congestive heart failure Functional Status: Reports: Pain Controlled - Review of Systems General: Reports: No Symptoms HEENT: Reports: No Symptoms Pulmonary: Reports: No Symptoms Cardiovascular: Reports: No Symptoms Gastrointestinal: Reports: No Symptoms Genitourinary: Reports: No Symptoms Musculoskeletal: Reports: No Symptoms Skin: Reports: No Symptoms Neurological: Reports: No Symptoms Psychiatric: Reports: No Symptoms - Patient Data Vitals - Most Recent: Last Vital Signs Temp 99.3 F 03/25/19 08:00 Pulse 76 03/25/19 08:53 Resp 20 03/25/19 08:00 BP 130/71 02/17/20 08:53 Pulse Ox 98 03/25/19 08:00 Weight - Most Recent: 152 lb 4 oz Lab Results - Last 24 hrs: Laboratory Results - last 24 hr 03/25/19 Range/Units 06:13 PT 18.9 H (9.0-12.0) SEC INR 1.9 H (0.9-1.2) Med Orders - Current: Current Medications Acetaminophen (Tylenol) 650 mg PO Q4H PRN PRN Reason: Pain (Mild 1-3)/fever Benzocaine/Menthol (Cepacol Sore Throat) 1 lozenge MUCMEM 5XDAY PRN PRN Reason: Sore Throat Last Admin: 03/24/19 09:20 Dose: 1 lozenge Bumetanide (Bumex) 2 mg PO BIDDIURETIC [facility] Last Admin: 03/25/19 08:49 Dose: 2 mg Carvedilol (Coreg) 3.125 mg PO BID [facility] Last Admin: 03/25/19 08:53 Dose: 3.125 mg Levothyroxine Sodium (Synthroid) 50 mcg PO ACBREAKFAST [facility] Last Admin: 03/25/19 06:33 Dose: 50 mcg Lisinopril (Prinivil) 2.5 mg PO DAILY [facility] Last Admin: 03/25/19 08:51 Dose: 2.5 mg Multivitamins/Minerals (I-Delaney) 1 each PO DAILY [facility] Last Admin: 03/25/19 08:52 Dose: 1 each Advanced Coq10 And Plessis-3 Formula Pt Own Med 1 each PO DAILY [facility] Last Admin: 03/25/19 08:55 Dose: 1 each Arterin - Magnesium And Niacinamide Formula 2 each PO BIDMEALS [facility] Last Admin: 03/25/19 08:54 Dose: 2 each [id number] Dietary (Supplement) 1 each PO BIDMEALS [facility] Last Admin: 03/25/19 08:55 Dose: 1 each Ondansetron HCl (Zofran) 4 mg IVPUSH Q4H PRN PRN Reason: Nausea/Vomiting Hempvana (Trolamine Salicylate 10%) Cream Own Med 0 each TOP QID PRN PRN Reason: Pain Last Admin: 03/23/19 21:16 Dose: 1 each [id number] Organic Hemp (Oil Own Med) 0 each SL TID PRN PRN Reason: Pain Last Admin: 03/21/19 11:22 Dose: 15 each Potassium Chloride (Klor-Con 10) 40 meq PO BIDMEALS [facility] Last Admin: 03/25/19 08:50 Dose: 40 meq Warfarin Sodium (Pharmacy To Dose - Warfarin) 1 dose .XX ASDIRECTED [facility] Warfarin Sodium (Coumadin) 6 mg PO ONETIME ONE Stop: 03/25/19 14:01 Discontinued Medications Potassium Chloride 10 meq/ (Premix) 100 mls @ 100 mls/hr IV Q2H [facility] Stop: 03/21/19 14:59 Last Infusion: 03/21/19 16:15 Dose: Infused Warfarin Sodium (Coumadin) 5 mg PO ONETIME ONE Stop: 03/19/19 19:01 Last Admin: 03/19/19 20:14 Dose: 5 mg Warfarin Sodium (Coumadin) 1 mg PO ONETIME ONE Stop: 03/19/19 19:31 Last Admin: 03/19/19 20:14 Dose: 1 mg Warfarin Sodium (Coumadin) 6 mg PO ONETIME ONE Stop: 03/20/19 14:01 Last Admin: 03/20/19 14:38 Dose: 6 mg Warfarin Sodium (Coumadin) 6 mg PO ONETIME ONE Stop: 03/21/19 14:01 Last Admin: 03/21/19 14:38 Dose: 6 mg Warfarin Sodium (Coumadin) 6 mg PO ONETIME ONE Stop: 03/22/19 14:01 Last Admin: 03/22/19 13:37 Dose: 6 mg Warfarin Sodium (Coumadin) 6 mg PO ONETIME ONE Stop: 03/23/19 14:01 Last Admin: 03/23/19 15:23 Dose: 6 mg Warfarin Sodium (Coumadin) 6 mg PO ONETIME ONE Stop: 03/24/19 14:01 Last Admin: 03/24/19 13:25 Dose: 6 mg - Exam General: Reports: Alert, Oriented HEENT: Reports: Pupils Equal, Pupils Reactive, EOMI, Mucous Membr. Moist/[place] Neck: Reports: Supple Lungs: Reports: Clear to Auscultation, Normal Respiratory Effort Cardiovascular: Reports: Regular Rate, Regular Rhythm GI/Abdominal Exam: Normal Bowel Sounds, Soft, Non-Tender, No Organomegaly, No Distention, No Abnormal Bruit, No Mass, Pelvis Stable (Female) Exam: Normal External Exam, Normal Speculum Exam, Normal Bimanual Exam Rectal (Female) Exam: Normal Exam, Normal Rectal Tone Back Exam: Reports: Normal Inspection, Full Range of Motion Extremities: Normal Inspection, Normal Range of Motion, Non-Tender, No Pedal Edema, Normal Capillary Refill Skin: Reports: Warm, Dry, Intact Wound/Incisions: Reports: Healing Well Neurological: Reports: No New Focal Deficit Psy/Mental Status: Reports: Alert, Normal Affect, Normal Mood
[2019-03-25] MEDS ORDERED: Warfarin 2 MG Tab PO ONE (14:00)
[2019-03-26] MEDS: Levothyroxine 50 MCG Tab PO SCH (06:27)
[2019-03-26 07:39] VITALS: BP 126/65; PULSE 79
[2019-03-26] MEDS: Bumetanide 1 MG Tab PO SCH ×2 (08:02→13:33)
[2019-03-26] MEDS: Lutein/Minerals/Vit A,C & E Tab PO SCH (08:03)
[2019-03-26] MEDS: Lisinopril 5 MG Tab PO SCH (08:03)
[2019-03-26] MEDS: Carvedilol 3.125 MG Tab PO SCH (08:04)
[2019-03-26] MEDS: Potassium Chloride 10 MEQ Tab.ER PO SCH (08:04)
[2019-03-26] MEDS: [UNRECOGNIZED DRUG - OTHER] PO SCH (08:06)
[2019-03-26] MEDS: [UNRECOGNIZED DRUG - OTHER] PO SCH (08:06)
[2019-03-26] MEDS ORDERED: Warfarin 2 MG Tab PO ONE (14:00)
== END 2019-03-26 17:06 | disposition home or self-care (01) | DRG 292 ==
LOC: DL.MS 11:39 → UNDOADMIN 11:39 → DL.MS 12:20
PROVIDERS: ADMIT Internal Medicine; ATTEND Student in an Organized Health Care Education/Training Program
DX: I13.0 Hypertensive heart and chronic kidney disease with heart failure and stage 1 through stage 4 chronic kidney disease, or unspecified chronic kidney disease (principal); I44.2 Atrioventricular block, complete; I50.22 Chronic systolic (congestive) heart failure; I48.91 Unspecified atrial fibrillation; D50.9 Iron deficiency anemia, unspecified; N18.9 Chronic kidney disease, unspecified; E03.9 Hypothyroidism, unspecified; E78.00 Pure hypercholesterolemia, unspecified; E11.22 Type 2 diabetes mellitus with diabetic chronic kidney disease; M19.90 Unspecified osteoarthritis, unspecified site; M54.9 Dorsalgia, unspecified; G89.29 Other chronic pain; Z95.0 Presence of cardiac pacemaker; Z79.01 Long term (current) use of anticoagulants; Z79.890 Hormone replacement therapy; Z79.899 Other long term (current) drug therapy; Z98.49 Cataract extraction status, unspecified eye; Z88.8 Allergy status to other drugs, medicaments and biological substances
CPT/HCPCS: 36415; 80048; 85610; 97110-GO; 97110-GP; 97116-GP; 97162-GP; 97165-GO; 97530-GO; 97535-GO; A9270-GY; J3480

== ENCOUNTER 2019-04-12 20:53 | Inpatient (IN) | payer MEDICARE, BC ==
[2019-04-12] MEDS ORDERED: Sodium Chloride 0.9% 10 ML Syringe FLUSH PRN ×2 (21:14→23:23)
--- NOTE | 2019-04-12 21:21 | EDM.PDOC ---
ED HPI GENERAL MEDICAL PROBLEM - General Chief Complaint: General Stated Complaint: PAIN ALL OVER BODY Time Seen by Provider: 04/12/19 21:21 Source of Information: Reports: Patient, Family, RN, RN Notes Reviewed - History of Present Illness INITIAL COMMENTS - FREE TEXT/NARRATIVE: patient presents to ER with family with complaint of "pain all over". Patient states she had a pacemaker placed approximately 3 weeks ago, came to this facility for swing bed for strengthening. Only states she was doing very well while in swing bed and strengthening therapy. Patient states she went home began having pain all over. States she saw her primary care provider and was started on gabapentin. Patient states she thinks this made her worse, and has not taken it for the past 4 days. Patient complains of aches and pains in the chest back, shoulders, arms, legs, feet, toes. Patient states she has had a cough that has been productive at times. Patient admits to history of anemia and CHF. Patient denies fever or chills, nausea, vomiting, diarrhea. Onset: Gradual Generalized Pain Score (Numeric/FACES): 10 - Related Data Allergies Allergy/AdvReac Type Severity Reaction Status Date / Time calcium Allergy Cannot Verified 03/19/19 09:44 Remember ezetimibe Allergy Cannot Verified 03/19/19 09:44 Remember hydrochlorothiazide Allergy Dizziness Verified 03/19/19 09:44 simvastatin Allergy Cannot Verified 03/19/19 09:44 Remember Home Meds: Home Meds Warfarin [Coumadin] 6 mg PO .MONTUETHURFRISAT 11/09/15 [History] Warfarin [Coumadin] 3 mg PO .SUN 04/16/18 [History] Acetaminophen [Tylenol Extra Strength] 500 mg PO Q4H PRN 03/12/19 [History] Bumetanide 2 mg PO BID 03/12/19 [History] Levothyroxine 50 mcg PO ACBREAKFAST 03/12/19 [History] Psyllium Husk (With Sugar) [Metamucil Powder] 1 tbsp PO DAILY 03/12/19 [History] Sennosides/Docusate Sodium [Senna Plus 8.6-50 mg Tablet] 1 tab PO BID 03/12/19 [ History] Ubidecarenone [Co Q-10] 10 mg PO DAILY 03/12/19 [History] lisinopriL [Lisinopril] 2.5 mg PO DAILY 03/12/19 [History] Carvedilol [Coreg] 3.125 mg PO BID 03/19/19 [History] Diclofenac Sodium [Voltaren 1% Gel] 1 applic TOP BID 03/19/19 [History] Docusate Sodium [DOK] 100 mg PO DAILY 03/19/19 [History] Lutein/Minerals/Vit A,C & E [Ocuvite] 1 tab PO DAILY 03/19/19 [History] Non-Formulary Medication [NF Drug] 1 applic TOP QID PRN 03/19/19 [History] Non-Formulary Medication [NF Drug] 1 cap PO BID 03/19/19 [History] Non-Formulary Medication [NF Drug] 1 cap PO DAILY 03/19/19 [History] Non-Formulary Medication [NF Drug] 1 tab PO TID 03/19/19 [History] Non-Formulary Medication [NF Drug] 2 tab PO BID 03/19/19 [History] Non-Formulary Medication [NF Drug] 15 drop SL TID PRN 03/19/19 [History] Potassium Chloride [Klor-Con 10] 20 meq PO DAILY #60 tab.er 03/25/19 [Rx] Past Medical History HEENT History: Reports: Cataract, Impaired Vision Cardiovascular History: Reports: Afib, Heart Failure, High Cholesterol, Hypertension, Pacemaker Respiratory History: Reports: None Gastrointestinal History: Reports: Bowel Obstruction, Diverticulosis, Hemorrhoids Genitourinary History: Reports: Chronic Renal Insuffiency 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 Musculoskeletal History: Reports: Arthritis, Back Pain, Chronic Neurological History: Reports: None Psychiatric History: Reports: Anxiety Endocrine/Metabolic History: Reports: Diabetes, Type II, Hypothyroidism Hematologic History: Reports: None Immunologic History: Reports: None Oncologic (Cancer) History: Reports: Uterine Dermatologic History: Reports: None - Infectious Disease History Infectious Disease History: Reports: Chicken Pox, Measles, Mumps - Past Surgical History Head Surgeries/Procedures: Reports: None HEENT Surgical History: Reports: Cataract Surgery, Tonsillectomy Cardiovascular Surgical History: Reports: Pacer, Other (See Below) Other Cardiovascular Surgeries/Procedures: Pacemaker placement on March 16 2019 GI Surgical History: Reports: Appendectomy, Cholecystectomy Female Surgical History: Reports: Hysterectomy, Other (See Below) Other Female Surgeries/Procedures: lymph node removal Oncologic Surgical History: Reports: Biopsy of Breast Social & Family History - Family History Family Medical History: Noncontributory Cardiac: Reports: Arrhythmia, High Cholesterol, [place] Neurological: Reports: TIA Endocrine/Metabolic: Reports: Diabetes, type II Oncologic: Reports: Breast, Thyroid, Other (See Below) Other Oncologic Family History: "STOMACH CANCER" - Tobacco Use Smoking Status *Q: Never Smoker Second Hand Smoke Exposure: No - Caffeine Use Caffeine Use: Reports: Coffee - Recreational Drug Use Recreational Drug Use: No - Living Situation & Occupation Living situation: Reports: Alone Occupation: Retired ED ROS GENERAL - Review of Systems Review Of Systems: Comprehensive ROS is negative, except as noted in HPI. ED EXAM, GENERAL - Physical Exam Exam: See Below Exam Limited By: No Limitations General Appearance: Alert, WD/WN, Mild Distress Eye Exam: Bilateral Eye: EOMI, Normal Inspection Ears: Normal External Exam, Hearing Grossly Normal Nose: Normal Inspection Throat/Mouth: Normal Inspection, Normal Voice, No Airway Compromise Head: Atraumatic, Normocephalic Neck: Normal Inspection, Limited Range of Motion Respiratory/Chest: No Respiratory Distress, No Accessory Muscle Use, Rales ( throughout). No: Chest Non-Tender Cardiovascular: Normal Peripheral Pulses, Systolic Murmur, Irregularly Irregular Peripheral Pulses: 1+: Radial (L), Radial (R), Dorsalis Pedis (L), Dorsalis Pedis (R) GI/Abdominal: Normal Bowel Sounds, Soft, Non-Tender (Female) Exam: Deferred Rectal (Female) Exam: Deferred Back Exam: Normal Inspection, Decreased Range of Motion Extremities: Normal Inspection, Normal Capillary Refill, Arm Pain, Leg Pain, Limited Range of Motion, Other (+2-3 pitting edema to the lower extrem bilaterally]) Neurological: Alert, Oriented, Normal Cognition, Abnormal Gait (very weak, unable to get up on her own) Psychiatric: Normal Affect, Normal Mood Skin Exam: Warm, Dry, Intact, Normal Color, No Rash Lymphatic: No Adenopathy Course - Vital Signs Last Recorded V/S: Last Vital Signs Temp 99.7 F 04/12/19 20:59 Pulse 69 04/12/19 20:59 Resp 18 04/12/19 20:59 BP 111/62 04/12/19 20:59 Pulse Ox 97 04/12/19 20:59 - Orders/Labs/Meds Orders: Active Orders 24 hr Category Date Time Status EKG Documentation Completion [RC] URGENT Care 04/12/19 21:14 Active Peripheral IV Care [RC] . DIRECTED Care 04/12/19 21:15 Active Sodium Chloride 0.9% [Saline Flush] Med 04/12/19 21:14 Active 10 ml FLUSH ASDIRECTED PRN Peripheral IV Insertion Adult [OM.PC] Routine Oth 04/12/19 21:14 Ordered Medication Orders Sodium Chloride (Saline Flush) 10 ml FLUSH ASDIRECTED PRN PRN Reason: Keep Vein Open Last Admin: 04/12/19 21:21 Dose: 10 ml Labs: Laboratory Tests 04/12/19 04/12/19 Range/Units 21:20 21:20 WBC 8.2 (5.0-10.0) 10^3/uL RBC 3.70 L (4.2-5.4) 10^6/uL Hgb 9.2 L (12.0-16.0) g/dL Hct 27.9 L (37.0-47.0) % MCV 75.4 L (80-100) fL MCH 24.9 L (27.0-34.0) pg MCHC 33.0 (33.0-35.0) g/dL Plt Count 264 D (150-450) 10^3/uL Neut % (Auto) 79.5 H (42.2-75.2) % Lymph % (Auto) 11.7 L (20.5-50.1) % [place] % (Auto) 7.6 (2-8) % Eos % (Auto) 0.6 L (1.0-3.0) % Baso % (Auto) 0.6 (0.0-1.0) % Sodium 131 L (135-145) mmol/L Potassium 3.6 (3.6-5.0) mmol/L Chloride 95 L (101-111) mmol/L Carbon Dioxide 26.0 (21.0-31.0) mmol/L Anion Gap 13.6 BUN 29 H (7-18) mg/dL Creatinine 0.8 (0.6-1.3) mg/dL Est Cr Clr Drug Dosing 41.17 mL/min Estimated GFR (MDRD) > 60 BUN/Creatinine Ratio 36.25 Glucose 124 H (74-105) mg/dL Calcium 8.8 (8.4-10.2) mg/dl Total Bilirubin 1.6 H (0.2-1.0) mg/dL AST 33 (10-42) IU/L ALT 34 (10-60) IU/L Alkaline Phosphatase 64 (42-121) IU/L Troponin I 0.04 H* (0.00-0.02) ng/ml B-Natriuretic Peptide 2530 H (0-100) pg/ml Total Protein 7.0 (6.7-8.2) g/dl Albumin 3.2 (3.2-5.5) g/dl Globulin 3.8 Albumin/Globulin Ratio 0.84 Influenza A: Negative Influenza B: Negative Meds: Medications Generic Name Dose Route Start Last Admin Trade Name Freq PRN Reason Stop Dose Admin Sodium Chloride 10 ml 04/12/19 21:14 04/12/19 21:21 Saline Flush FLUSH 10 ml ASDIRECTED PRN Administration Keep Vein Open - Radiology Interpretation Free Text/Narrative:: Chest xray: FINDINGS: Tubes, catheters and devices: A pacemaker device is present and its leads are in appropriate position. Lungs: The lungs are normal. Pleural space: There are no pleural effusions present. There is no evidence of pneumothorax. Heart/Mediastinum: The heart demonstrates marked diffuse enlargement. The pulmonary arteries are not enlarged. Bones/joints: There is marked degenerative change in the right shoulder joint and moderate in the left. IMPRESSION: Markedly enlarged heart. This appears similar to the prior study. Thank you for allowing us to participate in the care of your patient. Dictated and Authenticated by: Darin Ramírez MD 04/12/2019 9:45 PM Central Time ([place] & [place]) See rad report - Re-Assessments/Exams Free Text/Narrative Re-Assessment/Exam: 04/12/19 22:26 Discussed patient case with Dr. England who agreed to accept the patient for observation admission. Departure - Departure Time of Disposition: 22:27 Disposition: Refer to Observation Condition: Fair Clinical Impression: Generalized weakness CHF (congestive heart failure) Qualifiers: Heart failure type: unspecified Heart failure chronicity: acute on chronic Qualified Code(s): I50.9 - Heart failure, unspecified Afib Qualifiers: Atrial fibrillation type: persistent Qualified Code(s): I48.1 - Persistent atrial fibrillation Acute on chronic congestive heart failure Qualifiers: Heart failure type: combined systolic and diastolic Qualified Code(s): I50.43 - Acute on chronic combined systolic (congestive) and diastolic (congestive) heart failure - Discharge Information *PRESCRIPTION DRUG MONITORING PROGRAM REVIEWED*: No *COPY OF PRESCRIPTION DRUG MONITORING REPORT IN PATIENT EVANGELISTA: No Sepsis Event Note - Evaluation Sepsis Screening Result: No Definite Risk - Focused Exam Vital Signs: Vital Signs Temp Pulse Resp BP Pulse Ox 04/12/19 20:59 99.7 F 69 18 111/62 97 Date Exam was Performed: 04/12/19 Time Exam was Performed: 22:27 - My Orders Last 24 Hours: My Active Orders 04/12/19 21:14 EKG Documentation Completion [RC] URGENT Sodium Chloride 0.9% [Saline Flush] 10 ml FLUSH ASDIRECTED PRN Peripheral IV Insertion Adult [OM.PC] Routine 04/12/19 21:15 Peripheral IV Care [RC] . DIRECTED - Assessment/Plan Last 24 Hours: My Active Orders 04/12/19 21:14 EKG Documentation Completion [RC] URGENT Sodium Chloride 0.9% [Saline Flush] 10 ml FLUSH ASDIRECTED PRN Peripheral IV Insertion Adult [OM.PC] Routine 04/12/19 21:15 Peripheral IV Care [RC] . DIRECTED
[2019-04-12 21:42] LABS: ANION GAP 13.6; CHLORIDE,CL 95 mmol/L (101-111); SODIUM,NA 131 mmol/L (135-145)
[2019-04-12] MEDS ORDERED: Furosemide 40 MG/4 ML VIAL IVPUSH SCH (23:15)
[2019-04-12] MEDS ORDERED: Ondansetron 4 MG/2 ML SDV IV PRN (23:15)
--- NOTE | 2019-04-12 23:24 | PCM.HP ---
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 The patient is a poor historian. She has right shoulder pain. She can't remember when the pain first started. Pain is worse with movement of the right shoulder. Pain is severe, constant, sharp. She has no fever, no chest pain, no SOB, no abdominal pain. She also complains of increased urinary frequency, but no dysuria, suprapubic pain or hematuria. In the ED, urinalysis was positive for nitrites, LE and many bacteria. urine cx was ordered. Generalized Pain Score (Numeric/FACES): 10 - Related Data Allergies/Adverse Reactions: Allergies Allergy/AdvReac Type Severity Reaction Status Date / Time calcium Allergy Cannot Verified 04/12/19 22:50 Remember ezetimibe Allergy Cannot Verified 04/12/19 22:50 Remember hydrochlorothiazide Allergy Dizziness Verified 04/12/19 22:50 simvastatin Allergy Cannot Verified 04/12/19 22:50 Remember Home Medications: Home Meds Warfarin [Coumadin] 6 mg PO .MONTUETHURFRISAT 11/09/15 [History] Warfarin [Coumadin] 3 mg PO .SUN 04/16/18 [History] Acetaminophen [Tylenol Extra Strength] 500 mg PO Q4H PRN 03/12/19 [History] Bumetanide 2 mg PO BID 03/12/19 [History] Levothyroxine 50 mcg PO ACBREAKFAST 03/12/19 [History] Psyllium Husk (With Sugar) [Metamucil Powder] 1 tbsp PO DAILY 03/12/19 [History] Sennosides/Docusate Sodium [Senna Plus 8.6-50 mg Tablet] 1 tab PO BID 03/12/19 [ History] Ubidecarenone [Co Q-10] 10 mg PO DAILY 03/12/19 [History] lisinopriL [Lisinopril] 2.5 mg PO DAILY 03/12/19 [History] Carvedilol [Coreg] 3.125 mg PO BID 03/19/19 [History] Diclofenac Sodium [Voltaren 1% Gel] 1 applic TOP BID 03/19/19 [History] Docusate Sodium [DOK] 100 mg PO DAILY 03/19/19 [History] Lutein/Minerals/Vit A,C & E [Ocuvite] 1 tab PO DAILY 03/19/19 [History] Non-Formulary Medication [NF Drug] 1 applic TOP QID PRN 03/19/19 [History] Non-Formulary Medication [NF Drug] 1 cap PO BID 03/19/19 [History] Non-Formulary Medication [NF Drug] 1 cap PO DAILY 03/19/19 [History] Non-Formulary Medication [NF Drug] 1 tab PO TID 03/19/19 [History] Non-Formulary Medication [NF Drug] 2 tab PO BID 03/19/19 [History] Non-Formulary Medication [NF Drug] 15 drop SL TID PRN 03/19/19 [History] Potassium Chloride [Klor-Con 10] 20 meq PO DAILY #60 tab.er 03/25/19 [Rx] Past Medical History HEENT History: Reports: Cataract, Impaired Vision Cardiovascular History: Reports: Afib, Heart Failure, High Cholesterol, Hypertension, Pacemaker Respiratory History: Reports: None Gastrointestinal History: Reports: Bowel Obstruction, Diverticulosis, Hemorrhoids Genitourinary History: Reports: Chronic Renal Insuffiency 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 Musculoskeletal History: Reports: Arthritis, Back Pain, Chronic Neurological History: Reports: None Psychiatric History: Reports: Anxiety Endocrine/Metabolic History: Reports: Diabetes, Type II, Hypothyroidism Hematologic History: Reports: None Immunologic History: Reports: None Oncologic (Cancer) History: Reports: Uterine Dermatologic History: Reports: None - Infectious Disease History Infectious Disease History: Reports: Chicken Pox, Measles, Mumps - Past Surgical History Head Surgeries/Procedures: Reports: None HEENT Surgical History: Reports: Cataract Surgery, Tonsillectomy Cardiovascular Surgical History: Reports: Pacer, Other (See Below) Other Cardiovascular Surgeries/Procedures: Pacemaker placement on March 16 2019 GI Surgical History: Reports: Appendectomy, Cholecystectomy Female Surgical History: Reports: Hysterectomy, Other (See Below) Other Female Surgeries/Procedures: lymph node removal Oncologic Surgical History: Reports: Biopsy of Breast Social & Family History - Family History Family Medical History: Noncontributory Cardiac: Reports: Arrhythmia, High Cholesterol, PR Neurological: Reports: TIA Endocrine/Metabolic: Reports: Diabetes, type II Oncologic: Reports: Breast, Thyroid, Other (See Below) Other Oncologic Family History: "STOMACH CANCER" - Tobacco Use Smoking Status *Q: Never Smoker Second Hand Smoke Exposure: No - Caffeine Use Caffeine Use: Reports: None - Recreational Drug Use Recreational Drug Use: No - Living Situation & Occupation Living situation: Reports: Alone Occupation: Retired H&P Review of Systems - Review of Systems: Review Of Systems: See Below General: Reports: Weakness. Denies: Fever HEENT: Reports: No Symptoms Pulmonary: Reports: No Symptoms Cardiovascular: Reports: No Symptoms Gastrointestinal: Reports: No Symptoms Genitourinary: Reports: No Symptoms Musculoskeletal: Reports: Joint Pain, Joint Swelling (right shoulder) Skin: Reports: Other (chronic bilateral leg swelling) Psychiatric: Reports: No Symptoms Neurological: Reports: No Symptoms Exam - Exam Exam: See Below - Vital Signs Vital Signs: Last Vital Signs Temp 37.4 C 04/12/19 23:12 Pulse 88 04/12/19 23:12 Resp 16 04/12/19 23:12 BP 113/51 L 04/12/19 23:12 Pulse Ox 97 04/12/19 23:12 Weight: 66.224 kg - Exam General: Alert, Oriented HEENT: Conjunctiva Clear Neck: Supple, Trachea Midline Lungs: Clear to Auscultation, Normal Respiratory Effort Cardiovascular: Regular Rate, Regular Rhythm GI/Abdominal Exam: Normal Bowel Sounds, Soft, Non-Tender Extremities: Pedal Edema (bilateral pedal edema, R>L), Joint Swelling (right shoulder swelling, tender, limited ROM. ) - Patient Data Lab Results Last 24 hrs: Laboratory Results - last 24 hr 04/12/19 04/12/19 04/12/19 Range/Units 21:20 21:20 22:00 WBC 8.2 (5.0-10.0) 10^3/uL RBC 3.70 L (4.2-5.4) 10^6/uL Hgb 9.2 L (12.0-16.0) g/dL Hct 27.9 L (37.0-47.0) % MCV 75.4 L (80-100) fL MCH 24.9 L (27.0-34.0) pg MCHC 33.0 (33.0-35.0) g/dL Plt Count 264 D (150-450) 10^3/uL Neut % (Auto) 79.5 H (42.2-75.2) % Lymph % (Auto) 11.7 L (20.5-50.1) % [place] % (Auto) 7.6 (2-8) % Eos % (Auto) 0.6 L (1.0-3.0) % Baso % (Auto) 0.6 (0.0-1.0) % Sodium 131 L (135-145) mmol/L Potassium 3.6 (3.6-5.0) mmol/L Chloride 95 L (101-111) mmol/L Carbon Dioxide 26.0 (21.0-31.0) mmol/L Anion Gap 13.6 BUN 29 H (7-18) mg/dL Creatinine 0.8 (0.6-1.3) mg/dL Est Cr Clr Drug Dosing 41.17 mL/min Estimated GFR (MDRD) > 60 BUN/Creatinine Ratio 36.25 Glucose 124 H (74-105) mg/dL Calcium 8.8 (8.4-10.2) mg/dl Total Bilirubin 1.6 H (0.2-1.0) mg/dL AST 33 (10-42) IU/L ALT 34 (10-60) IU/L Alkaline Phosphatase 64 (42-121) IU/L Troponin I 0.04 H* (0.00-0.02) ng/ml B-Natriuretic Peptide 2530 H (0-100) pg/ml Total Protein 7.0 (6.7-8.2) g/dl Albumin 3.2 (3.2-5.5) g/dl Globulin 3.8 Albumin/Globulin Ratio 0.84 Urine Color Dark yellow (YELLOW) Urine Appearance Cloudy (CLEAR) Urine pH 5.0 (5.0-9.0) Ur Specific [place] 1.010 (1.005-1.030) Urine Protein Negative (NEGATIVE) Urine Glucose (UA) Negative (NEGATIVE) Urine Ketones Negative (NEGATIVE) Urine Occult Blood Small H (NEGATIVE) Urine Nitrite Positive H (NEGATIVE) Urine Bilirubin Negative (NEGATIVE) Urine Urobilinogen 0.2 (0.2-1.0) mg/dL Ur Leukocyte Esterase Moderate H (NEGATIVE) Urine RBC 0-5 /HPF Urine WBC Packed H (0-5/HPF) /HPF Ur Epithelial Cells Moderate H (NOT SEEN) /HPF Urine Bacteria Many H (0-FEW/HPF) /HPF Result Diagrams: 04/12/19 21:20 04/12/19 21:20 Donnell Results Last 24 hrs: Microbiology 04/12/19 21:20 Influenza Type A Antigen Screen - Final Nasal, Unspecified NEGATIVE INFLUENZA A VIRUS AG REFERENCE RANGE: NEGATIVE Influenza Type B Antigen Screen - Final NEGATIVE INFLUENZA B VIRUS AG REFERENCE RANGE: NEGATIVE Problem List Initiated/Reviewed/Updated: Yes Orders Last 24hrs: Active Orders 24 hr Category Date Time Status Admission Diagnosis [ADT] Stat ADT 04/12/19 22:11 Ordered Patient Status [ADT] Routine ADT 04/12/19 23:23 Ordered Ambulate [RC] ASDIRECTED Care 04/12/19 23:23 Ordered EKG Documentation Completion [RC] URGENT Care 04/12/19 21:14 Active Height and Weight [RC] DAILY Care 04/12/19 23:23 Ordered Oxygen Therapy [RC] PRN Care 04/12/19 23:23 Ordered Peripheral IV Care [RC] . DIRECTED Care 04/12/19 21:15 Active Peripheral IV Care [RC] . DIRECTED Care 04/12/19 23:23 Ordered Up With Assistance [RC] ASDIRECTED Care 04/12/19 23:23 Ordered VTE/DVT Education [RC] PER UNIT ROUTINE Care 04/12/19 23:23 Ordered Vital Signs [RC] Q4H Care 04/12/19 23:23 Ordered OT Evaluation and Treatment [CONS] Routine Cons 04/12/19 23:23 Ordered PT Evaluation and Treatment [CONS] Routine Cons 04/12/19 23:23 Ordered Regular Diet [DIET] Diet 04/12/19 Breakfast Ordered BASIC METABOLIC PANEL,BMP [CHEM] AM Lab 04/13/19 05:11 Ordered BASIC METABOLIC PANEL,BMP [CHEM] AM Lab 04/14/19 05:11 Ordered BASIC METABOLIC PANEL,BMP [CHEM] AM Lab 04/15/19 05:11 Ordered CBC W/O DIFF,HEMOGRAM [HEME] AM Lab 04/13/19 05:11 Ordered CBC W/O DIFF,HEMOGRAM [HEME] AM Lab 04/14/19 05:11 Ordered CBC W/O DIFF,HEMOGRAM [HEME] AM Lab 04/15/19 05:11 Ordered CULTURE URINE [RM] Stat Lab 04/12/19 22:00 Received INR,PT,PROTHROMBIN TIME [COAG] DAILY Lab 04/13/19 05:00 Ordered INR,PT,PROTHROMBIN TIME [COAG] DAILY Lab 04/14/19 05:00 Ordered INR,PT,PROTHROMBIN TIME [COAG] DAILY Lab 04/15/19 05:00 Ordered INR,PT,PROTHROMBIN TIME [COAG] DAILY Lab 04/16/19 05:00 Ordered MAGNESIUM [CHEM] AM Lab 04/13/19 05:11 Ordered MAGNESIUM [CHEM] AM Lab 04/14/19 05:11 Ordered MAGNESIUM [CHEM] AM Lab 04/15/19 05:11 Ordered PHOSPHORUS [CHEM] AM Lab 04/13/19 05:11 Ordered PHOSPHORUS [CHEM] AM Lab 04/14/19 05:11 Ordered PHOSPHORUS [CHEM] AM Lab 04/15/19 05:11 Ordered Acetaminophen [Tylenol] Med 04/12/19 23:15 Ordered 650 mg PO Q4H PRN Enoxaparin [Lovenox] Med 04/12/19 23:30 Ordered 40 mg SUBCUT DAILY Furosemide [Lasix] Med 04/12/19 23:15 Ordered 40 mg IVPUSH Q8H Ondansetron [Zofran] Med 04/12/19 23:15 Ordered 4 mg IV Q4H PRN Sodium Chloride 0.9% [Saline Flush] Med 04/12/19 21:14 Active 10 ml FLUSH ASDIRECTED PRN Sodium Chloride 0.9% [Saline Flush] Med 04/12/19 23:23 Ordered 10 ml FLUSH ASDIRECTED PRN Sodium Chloride 0.9% [Saline Flush] Med 04/12/19 23:23 Ordered 10 ml FLUSH ASDIRECTED PRN cephALEXin [Keflex] Med 04/13/19 00:00 Ordered 500 mg PO Q6HR Peripheral IV Insertion Adult [OM.PC] Routine Oth 04/12/19 21:14 Ordered Peripheral IV Insertion Adult [OM.PC] Routine Oth 04/12/19 23:23 Ordered Saline Lock Insert [OM.PC] Routine Oth 04/12/19 23:23 Ordered Resuscitation Status Routine Resus Stat 04/12/19 23:23 Ordered Medication Orders Acetaminophen (Tylenol) 650 mg PO Q4H PRN PRN Reason: Pain/Fever Cephalexin (Keflex) 500 mg PO Q6HR CASH Stop: 04/18/19 00:01 Enoxaparin Sodium (Lovenox) 40 mg SUBCUT DAILY CASH Furosemide (Lasix) 40 mg IVPUSH Q8H CASH Ondansetron HCl (Zofran) 4 mg IV Q4H PRN PRN Reason: Nausea/Vomiting Sodium Chloride (Saline Flush) 10 ml FLUSH ASDIRECTED PRN PRN Reason: Keep Vein Open Last Admin: 04/12/19 21:21 Dose: 10 ml Assessment/Plan Comment:: #Right shoulder pain, swelling differentials include dislocated shoulder, osteoarthritis, inflammatory arthritis, septic arthritis check right shoulder CT scan pain management #UTI, uncomplicated f/u urine cx oral keflex 500 mg QID #CHF oral lasix GDMT #Lymphedema chronic R > L 2/2 surgery OT for lymphedema wraps #Afib s/p PPM rate control: continue home meds anticoagulation: continue coumadin, daily INR #Generalized weakness PT/OT #DVT ppx on coumadin #Code status DNR/DNI
[2019-04-12] MEDS: Enoxaparin 40 MG/0.4 ML Syringe SUBCUT SCH (23:46)
[2019-04-12] MEDS: Cephalexin 500 MG Cap PO SCH (23:46)
[2019-04-13] MEDS ORDERED: [UNRECOGNIZED DRUG - OTHER] PO ONE (00:45)
[2019-04-13] MEDS: Cephalexin 500 MG Cap PO SCH ×3 (05:57→17:39)
[2019-04-13 06:54] LABS: ANION GAP 13.4; CHLORIDE,CL 96 mmol/L (101-111); SODIUM,NA 131 mmol/L (135-145)
[2019-04-13] MEDS: Furosemide 40 MG Tab PO SCH ×2 (09:36→13:30)
[2019-04-13] MEDS: Enoxaparin 40 MG/0.4 ML Syringe SUBCUT SCH (09:37)
[2019-04-13] MEDS ORDERED: Non-Formulary Medication 1 Each PO PRN (10:28)
[2019-04-13] MEDS ORDERED: Non-Formulary Medication 1 Each (Diclofenac Sodium [Voltaren 1% Gel] 1 APPLIC) TOP SCH (10:30)
--- NOTE | 2019-04-13 10:39 | PCM.PN ---
- General Info Date of Service: 04/13/19 Admission Dx/Problem (Free Text): Admission Diagnosis/Problem Admission Diagnosis/Problem CHF, Congestive heart failure Subjective Update: Patient seen and examined She still complains of pain in the right shoulder Generalized body pain is improved No chest pain, no SOB - Review of Systems General: Reports: No Symptoms HEENT: Reports: No Symptoms Pulmonary: Reports: No Symptoms Cardiovascular: Reports: No Symptoms Gastrointestinal: Reports: No Symptoms Genitourinary: Reports: No Symptoms Musculoskeletal: Reports: Joint Pain (right shoulder pain) Skin: Reports: No Symptoms Neurological: Reports: No Symptoms Psychiatric: Reports: No Symptoms - Patient Data Vitals - Most Recent: Last Vital Signs Temp 36.6 C 04/13/19 07:27 Pulse 96 04/13/19 07:27 Resp 20 04/13/19 07:27 BP 112/86 04/13/19 07:27 Pulse Ox 99 04/13/19 07:27 Weight - Most Recent: 66.224 kg I&O - Last 24 Hours: Intake & Output 04/12/19 04/13/19 04/13/19 22:59 06:59 14:59 Intake Total 300 Output Total 100 Balance 200 Lab Results Last 24 Hours: Laboratory Results - last 24 hr 04/12/19 04/12/19 04/12/19 Range/Units 21:20 21:20 22:00 WBC 8.2 (5.0-10.0) 10^3/uL RBC 3.70 L (4.2-5.4) 10^6/uL Hgb 9.2 L (12.0-16.0) g/dL Hct 27.9 L (37.0-47.0) % MCV 75.4 L (80-100) fL MCH 24.9 L (27.0-34.0) pg MCHC 33.0 (33.0-35.0) g/dL Plt Count 264 D (150-450) 10^3/uL Neut % (Auto) 79.5 H (42.2-75.2) % Lymph % (Auto) 11.7 L (20.5-50.1) % [place] % (Auto) 7.6 (2-8) % Eos % (Auto) 0.6 L (1.0-3.0) % Baso % (Auto) 0.6 (0.0-1.0) % PT (9.0-12.0) SEC INR (0.9-1.2) Sodium 131 L (135-145) mmol/L Potassium 3.6 (3.6-5.0) mmol/L Chloride 95 L (101-111) mmol/L Carbon Dioxide 26.0 (21.0-31.0) mmol/L Anion Gap 13.6 BUN 29 H (7-18) mg/dL Creatinine 0.8 (0.6-1.3) mg/dL Est Cr Clr Drug Dosing 41.17 mL/min Estimated GFR (MDRD) > 60 BUN/Creatinine Ratio 36.25 Glucose 124 H (74-105) mg/dL Calcium 8.8 (8.4-10.2) mg/dl Phosphorus (2.5-4.6) mg/dL Magnesium (1.8-2.5) mg/dL Total Bilirubin 1.6 H (0.2-1.0) mg/dL AST 33 (10-42) IU/L ALT 34 (10-60) IU/L Alkaline Phosphatase 64 (42-121) IU/L Troponin I 0.04 H* (0.00-0.02) ng/ml B-Natriuretic Peptide 2530 H (0-100) pg/ml Total Protein 7.0 (6.7-8.2) g/dl Albumin 3.2 (3.2-5.5) g/dl Globulin 3.8 Albumin/Globulin Ratio 0.84 Urine Color Dark yellow (YELLOW) Urine Appearance Cloudy (CLEAR) Urine pH 5.0 (5.0-9.0) Ur Specific [place] 1.010 (1.005-1.030) Urine Protein Negative (NEGATIVE) Urine Glucose (UA) Negative (NEGATIVE) Urine Ketones Negative (NEGATIVE) Urine Occult Blood Small H (NEGATIVE) Urine Nitrite Positive H (NEGATIVE) Urine Bilirubin Negative (NEGATIVE) Urine Urobilinogen 0.2 (0.2-1.0) mg/dL Ur Leukocyte Esterase Moderate H (NEGATIVE) Urine RBC 0-5 /HPF Urine WBC Packed H (0-5/HPF) /HPF Ur Epithelial Cells Moderate H (NOT SEEN) /HPF Urine Bacteria Many H (0-FEW/HPF) /HPF 04/13/19 04/13/19 04/13/19 Range/Units 06:05 06:05 06:05 WBC 7.9 (5.0-10.0) 10^3/uL RBC 3.32 L (4.2-5.4) 10^6/uL Hgb 8.2 L (12.0-16.0) g/dL Hct 25.2 L (37.0-47.0) % MCV 75.9 L (80-100) fL MCH 24.7 L (27.0-34.0) pg MCHC 32.5 L (33.0-35.0) g/dL Plt Count 238 (150-450) 10^3/uL Neut % (Auto) (42.2-75.2) % Lymph % (Auto) (20.5-50.1) % [place] % (Auto) (2-8) % Eos % (Auto) (1.0-3.0) % Baso % (Auto) (0.0-1.0) % PT 23.1 H (9.0-12.0) SEC INR 2.4 H (0.9-1.2) Sodium 131 L (135-145) mmol/L Potassium 3.4 L (3.6-5.0) mmol/L Chloride 96 L (101-111) mmol/L Carbon Dioxide 25.0 (21.0-31.0) mmol/L Anion Gap 13.4 BUN 27 H (7-18) mg/dL Creatinine 0.7 (0.6-1.3) mg/dL Est Cr Clr Drug Dosing 48.04 mL/min Estimated GFR (MDRD) > 60 BUN/Creatinine Ratio Glucose 103 (74-105) mg/dL Calcium 8.4 (8.4-10.2) mg/dl Phosphorus 3.3 (2.5-4.6) mg/dL Magnesium 2.1 (1.8-2.5) mg/dL Total Bilirubin (0.2-1.0) mg/dL AST (10-42) IU/L ALT (10-60) IU/L Alkaline Phosphatase (42-121) IU/L Troponin I (0.00-0.02) ng/ml B-Natriuretic Peptide (0-100) pg/ml Total Protein (6.7-8.2) g/dl Albumin (3.2-5.5) g/dl Globulin Albumin/Globulin Ratio Urine Color (YELLOW) Urine Appearance (CLEAR) Urine pH (5.0-9.0) Ur Specific [place] (1.005-1.030) Urine Protein (NEGATIVE) Urine Glucose (UA) (NEGATIVE) Urine Ketones (NEGATIVE) Urine Occult Blood (NEGATIVE) Urine Nitrite (NEGATIVE) Urine Bilirubin (NEGATIVE) Urine Urobilinogen (0.2-1.0) mg/dL Ur Leukocyte Esterase (NEGATIVE) Urine RBC /HPF Urine WBC (0-5/HPF) /HPF Ur Epithelial Cells (NOT SEEN) /HPF Urine Bacteria (0-FEW/HPF) /HPF Donnell Results Last 24 Hours: Microbiology 04/12/19 21:20 Influenza Type A Antigen Screen - Final Nasal, Unspecified NEGATIVE INFLUENZA A VIRUS AG REFERENCE RANGE: NEGATIVE Influenza Type B Antigen Screen - Final NEGATIVE INFLUENZA B VIRUS AG REFERENCE RANGE: NEGATIVE Med Orders - Current: Current Medications Acetaminophen (Tylenol) 650 mg PO Q4H PRN PRN Reason: Pain/Fever Cephalexin (Keflex) 500 mg PO Q6HR [facility] Stop: 04/18/19 00:01 Last Admin: 04/13/19 05:57 Dose: 500 mg Furosemide (Lasix) 40 mg PO BIDDIURETIC [facility] Last Admin: 04/13/19 09:36 Dose: 40 mg Levothyroxine Sodium (Levothyroxine) 50 mcg PO ACBREAKFAST [facility] Non-Formulary Medication (Diclofenac Sodium [Voltaren 1% Gel]) 1 applic TOP BID [facility] Non-Formulary Medication (Docusate Sodium [Dok]) 100 mg PO DAILY [facility] Non-Formulary Medication (Psyllium Husk (With Sugar) [Metamucil Powder]) 1 tbsp PO DAILY [facility] Non-Formulary Medication (Warfarin) 3 mg PO .SUN [facility] Non-Formulary Medication (Warfarin [Coumadin]) 6 mg PO .MONTUETHURFRISAT [facility] Non-Formulary Medication (Nf Drug) 1 each PO TID PRN PRN Reason: Pain Ondansetron HCl (Zofran) 4 mg IV Q4H PRN PRN Reason: Nausea/Vomiting Senna/Docusate Sodium (Senna Plus) 1 tab PO BID [facility] Sodium Chloride (Saline Flush) 10 ml FLUSH ASDIRECTED PRN PRN Reason: Keep Vein Open Discontinued Medications Enoxaparin Sodium (Lovenox) 40 mg SUBCUT DAILY [facility] Last Admin: 04/13/19 09:37 Dose: Not Given Furosemide (Lasix) 40 mg IVPUSH Q8H [facility] Flex-He CapsuleOwn (Med) 1 each PO ONETIME ONE Stop: 04/13/19 00:46 Last Admin: 04/13/19 00:40 Dose: 1 each Sodium Chloride (Saline Flush) 10 ml FLUSH ASDIRECTED PRN PRN Reason: Keep Vein Open Last Admin: 04/12/19 21:21 Dose: 10 ml Sodium Chloride (Saline Flush) 10 ml FLUSH ASDIRECTED PRN PRN Reason: Keep Vein Open - Exam General: Alert, Oriented HEENT: Pupils Equal, Pupils Reactive Neck: Supple Lungs: Clear to Auscultation, Normal Respiratory Effort Cardiovascular: Regular Rate, Regular Rhythm Extremities: Normal Inspection, Pedal Edema, Joint Swelling (right shouler tenderness, swelling, restricted range of motion) Sepsis Event Note - Evaluation Sepsis Screening Result: No Definite Risk - Focused Exam Vital Signs: Vital Signs Temp Pulse Resp BP BP Pulse Ox 04/13/19 07:27 36.6 C 96 20 112/86 99 04/12/19 23:12 37.4 C 88 16 113/51 L 116/50 L 97 Date Exam was Performed: 04/13/19 Time Exam was Performed: 10:31 - Problem List Review Problem List Initiated/Reviewed/Updated: Yes - My Orders Last 24 Hours: My Active Orders 04/12/19 23:15 Acetaminophen [Tylenol] 650 mg PO Q4H PRN Ondansetron [Zofran] 4 mg IV Q4H PRN 04/12/19 23:23 Ambulate [RC] ASDIRECTED Height and Weight [RC] 0600 Oxygen Therapy [RC] PRN Peripheral IV Care [RC] . DIRECTED Up With Assistance [RC] ASDIRECTED VTE/DVT Education [RC] PER UNIT ROUTINE Vital Signs [RC] 08,12,16,20,00,04 OT Evaluation and Treatment [CONS] Routine PT Evaluation and Treatment [CONS] Routine Sodium Chloride 0.9% [Saline Flush] 10 ml FLUSH ASDIRECTED PRN Peripheral IV Insertion Adult [OM.PC] Routine Saline Lock Insert [OM.PC] Routine 04/12/19 23:36 Code Status [Resuscitation Status] Routine 04/13/19 00:00 cephALEXin [Keflex] 500 mg PO Q6HR 04/13/19 08:00 Furosemide [Lasix] 40 mg PO BIDDIURETIC 04/13/19 10:00 Patient Status [ADT] Routine 04/13/19 10:28 Non-Formulary Medication [NF Drug] 1 each PO TID PRN 04/13/19 10:30 Diclofenac Sodium [Voltaren 1% Gel] 1 applic TOP BID Docusate Sodium [DOK] 100 mg PO DAILY Warfarin 3 mg PO .SUN Warfarin [Coumadin] 6 mg PO .MONTUETHURFRISAT 04/13/19 21:00 Docusate Sodium/Sennosides [Senna Plus] 1 tab PO BID 04/14/19 05:00 INR,PT,PROTHROMBIN TIME [COAG] DAILY 04/14/19 05:11 BASIC METABOLIC PANEL,BMP [CHEM] AM CBC W/O DIFF,HEMOGRAM [HEME] AM MAGNESIUM [CHEM] AM PHOSPHORUS [CHEM] AM 04/14/19 06:00 Levothyroxine 50 mcg PO ACBREAKFAST 04/14/19 09:00 Psyllium Husk (With Sugar) [Metamucil Powder] 1 tbsp PO DAILY 04/15/19 05:00 INR,PT,PROTHROMBIN TIME [COAG] DAILY 04/15/19 05:11 BASIC METABOLIC PANEL,BMP [CHEM] AM CBC W/O DIFF,HEMOGRAM [HEME] AM MAGNESIUM [CHEM] AM PHOSPHORUS [CHEM] AM 04/16/19 05:00 INR,PT,PROTHROMBIN TIME [COAG] DAILY - Plan Plan:: #Right shoulder pain, swelling #Right shoulder osteoarthritis #Right rotator cuff injury CT scan result reviewed: severe osteoarthritis, rotator cuff injury Patient doesn't want to have surgery f/u with orthopedics clinic on discharge pain management PT/OT #UTI, uncomplicated f/u urine cx oral keflex 500 mg QID #CHF oral lasix GDMT #Lymphedema chronic R > L 2/2 surgery OT for lymphedema wraps #Afib s/p PPM rate control: continue home meds anticoagulation: continue coumadin, daily INR #Generalized weakness PT/OT #DVT ppx on coumadin #Code status DNR/DNI
[2019-04-13] MEDS: Docusate Sodium 100 MG Cap PO SCH (11:40)
[2019-04-13] MEDS: [UNRECOGNIZED DRUG - OTHER] PO PRN ×2 (11:41→21:54)
[2019-04-14] MEDS: Cephalexin 500 MG Cap PO SCH ×4 (00:20→17:22)
[2019-04-14] MEDS: Levothyroxine 50 MCG Tab PO SCH (05:33)
[2019-04-14] MEDS ORDERED: Potassium Chloride 10 MEQ Tab.ER PO ONE (09:31)
[2019-04-14] MEDS: Furosemide 40 MG Tab PO SCH ×2 (09:52→13:43)
[2019-04-14] MEDS: Psyllium Husk Powder Sugar Free 5.85 GM Packet PO SCH (09:53)
[2019-04-14] MEDS: Docusate Sodium 100 MG Cap PO SCH (09:53)
[2019-04-14] MEDS: Potassium Chloride 10 MEQ in Premix Bag 1 BAG IV SCH ×4 (10:50→17:13)
[2019-04-14] MEDS: Sodium Chloride 0.9% 10 ML Syringe FLUSH PRN (10:50)
--- NOTE | 2019-04-14 10:59 | PCM.PN ---
- General Info Date of Service: 04/14/19 Admission Dx/Problem (Free Text): Admission Diagnosis/Problem Admission Diagnosis/Problem CHF, Congestive heart failure Subjective Update: Patient seen and examined She still complains of pain in the right shoulder No chest pain, no SOB - Review of Systems General: Reports: No Symptoms HEENT: Reports: No Symptoms Pulmonary: Reports: No Symptoms Cardiovascular: Reports: No Symptoms Gastrointestinal: Reports: No Symptoms Genitourinary: Reports: No Symptoms Musculoskeletal: Reports: Joint Pain, Joint Swelling Skin: Reports: No Symptoms Neurological: Reports: No Symptoms Psychiatric: Reports: No Symptoms - Patient Data Vitals - Most Recent: Last Vital Signs Temp 37.0 C 04/14/19 07:49 Pulse 62 04/14/19 07:49 Resp 16 04/14/19 07:49 BP 100/49 L 04/14/19 07:49 Pulse Ox 95 04/14/19 07:49 Weight - Most Recent: 65.589 kg I&O - Last 24 Hours: Intake & Output 04/13/19 04/14/19 04/14/19 21:59 06:59 14:59 Intake Total Output Total Balance Lab Results Last 24 Hours: Laboratory Results - last 24 hr 04/14/19 04/14/19 04/14/19 Range/Units 06:15 06:15 06:15 WBC 7.8 (5.0-10.0) 10^3/uL RBC 3.10 L (4.2-5.4) 10^6/uL Hgb 7.6 L (12.0-16.0) g/dL Hct 23.6 L (37.0-47.0) % MCV 76.1 L (80-100) fL MCH 24.5 L (27.0-34.0) pg MCHC 32.2 L (33.0-35.0) g/dL Plt Count 256 (150-450) 10^3/uL PT 21.7 H (9.0-12.0) SEC INR 2.2 H (0.9-1.2) Sodium 131 L (135-145) mmol/L Potassium 3.0 L (3.6-5.0) mmol/L Chloride 98 L (101-111) mmol/L Carbon Dioxide 24.0 (21.0-31.0) mmol/L Anion Gap 12.0 BUN 29 H (7-18) mg/dL Creatinine 0.9 (0.6-1.3) mg/dL Est Cr Clr Drug Dosing 37.36 mL/min Estimated GFR (MDRD) 59 Glucose 123 H (74-105) mg/dL Calcium 7.9 L (8.4-10.2) mg/dl Phosphorus 3.1 (2.5-4.6) mg/dL Magnesium 2.0 (1.8-2.5) mg/dL Donnell Results Last 24 Hours: Microbiology 04/12/19 22:00 Urine Culture - Preliminary Urine, Clean Catch Med Orders - Current: Current Medications Acetaminophen (Tylenol) 650 mg PO Q4H PRN PRN Reason: Pain/Fever Cephalexin (Keflex) 500 mg PO Q6HR [facility] Stop: 04/18/19 00:01 Last Admin: 04/14/19 05:33 Dose: 500 mg Docusate Sodium (Colace) 100 mg PO DAILY [facility] Last Admin: 04/14/19 09:53 Dose: 100 mg Furosemide (Lasix) 40 mg PO BIDDIURETIC [facility] Last Admin: 04/14/19 09:52 Dose: 40 mg Potassium Chloride 10 meq/ (Premix) 100 mls @ 100 mls/hr IV Q1H [facility] Stop: 04/14/19 13:59 Last Admin: 04/14/19 10:50 Dose: 100 mls/hr Levothyroxine Sodium (Synthroid) 50 mcg PO ACBREAKFAST [facility] Last Admin: 04/14/19 05:33 Dose: 50 mcg Non-Formulary Medication (Diclofenac Sodium [Voltaren 1% Gel]) 1 applic TOP BID [facility] Flex-He CapsuleOwn (Med) 1 each PO TID PRN PRN Reason: dietary supplement Last Admin: 04/13/19 21:54 Dose: 1 each Ondansetron HCl (Zofran) 4 mg IV Q4H PRN PRN Reason: Nausea/Vomiting Psyllium Husk (Metamucil Sugar Free) 1 pkt PO DAILY [facility] Last Admin: 04/14/19 09:53 Dose: 1 pkt Senna/Docusate Sodium (Senna Plus) 1 tab PO BID [facility] Last Admin: 04/14/19 09:53 Dose: 1 tab Sodium Chloride (Saline Flush) 10 ml FLUSH ASDIRECTED PRN PRN Reason: Keep Vein Open Last Admin: 04/14/19 10:50 Dose: 10 ml Warfarin Sodium (Coumadin) 3 mg PO Fernandez [facility] Warfarin Sodium (Coumadin) 6 mg PO MoTuWeThFrSa@1400 [facility] Last Admin: 04/13/19 13:29 Dose: 6 mg Discontinued Medications Enoxaparin Sodium (Lovenox) 40 mg SUBCUT DAILY [facility] Last Admin: 04/13/19 09:37 Dose: Not Given Furosemide (Lasix) 40 mg IVPUSH Q8H [facility] Last Admin: 04/13/19 18:52 Dose: Not Given Flex-He CapsuleOwn (Med) 1 each PO ONETIME ONE Stop: 04/13/19 00:46 Last Admin: 04/13/19 00:40 Dose: 1 each Potassium Chloride (Klor-Con 10) 40 meq PO ONETIME ONE Stop: 04/14/19 09:32 Last Admin: 04/14/19 10:48 Dose: 40 meq Sodium Chloride (Saline Flush) 10 ml FLUSH ASDIRECTED PRN PRN Reason: Keep Vein Open Last Admin: 04/12/19 21:21 Dose: 10 ml Sodium Chloride (Saline Flush) 10 ml FLUSH ASDIRECTED PRN PRN Reason: Keep Vein Open - Exam General: Alert, Oriented HEENT: Pupils Equal, Pupils Reactive Neck: Supple Lungs: Clear to Auscultation, Normal Respiratory Effort Cardiovascular: Regular Rate, Regular Rhythm GI/Abdominal Exam: Normal Bowel Sounds, Soft, Non-Tender, No Organomegaly Extremities: Normal Inspection, No Pedal Edema, Joint Swelling Neurological: No New Focal Deficit Sepsis Event Note - Evaluation Sepsis Screening Result: No Definite Risk - Focused Exam Vital Signs: Vital Signs Temp Pulse Resp BP BP Pulse Ox 04/14/19 07:49 37.0 C 62 16 100/49 L 95 04/14/19 04:00 36.9 C 66 20 110/56 L 99 Date Exam was Performed: 04/14/19 Time Exam was Performed: 10:55 - Problem List Review Problem List Initiated/Reviewed/Updated: Yes - My Orders Last 24 Hours: My Active Orders 04/13/19 10:00 Patient Status [ADT] Routine 04/13/19 10:30 Diclofenac Sodium [Voltaren 1% Gel] 1 applic TOP BID 04/13/19 10:34 Docusate Sodium [Colace] 100 mg PO DAILY 04/13/19 11:23 Peripheral IV Discontinue [OM.PC] Routine 04/13/19 11:30 Non-Formulary Medication [NF Drug] 1 each PO TID PRN 04/13/19 14:00 Warfarin [Coumadin] 6 mg PO MoTuWeThFrSa@1400 04/13/19 21:00 Docusate Sodium/Sennosides [Senna Plus] 1 tab PO BID 04/14/19 06:00 Levothyroxine [Synthroid] 50 mcg PO ACBREAKFAST 04/14/19 09:00 Psyllium Husk/Aspartame [Metamucil Sugar Free] 1 pkt PO DAILY 04/14/19 10:00 Potassium Chloride [KCl 10 MEQ in Water 100 ML] 10 meq Premix Bag 1 bag IV Q1H 04/14/19 10:31 Peripheral IV Care [RC] Peripheral IV Insertion Adult [OM.PC] Routine 04/14/19 14:00 Warfarin [Coumadin] 3 mg PO Fernandez 04/15/19 05:00 INR,PT,PROTHROMBIN TIME [COAG] DAILY 04/15/19 05:11 BASIC METABOLIC PANEL,BMP [CHEM] AM CBC W/O DIFF,HEMOGRAM [HEME] AM MAGNESIUM [CHEM] AM PHOSPHORUS [CHEM] AM 04/16/19 05:00 INR,PT,PROTHROMBIN TIME [COAG] DAILY - Plan Plan:: #Anemia Stools so far has been brown, no melena stools Likely chronic anemia, AOCD monitor CBC daily #Right shoulder pain, swelling #Right shoulder osteoarthritis #Right rotator cuff injury CT scan result reviewed: severe osteoarthritis, rotator cuff injury Patient doesn't want to have surgery f/u with orthopedics clinic on discharge pain management PT/OT #UTI, uncomplicated f/u urine cx oral keflex 500 mg QID #CHF oral lasix GDMT #Lymphedema chronic R > L 2/2 surgery OT for lymphedema wraps #Afib s/p PPM rate control: continue home meds anticoagulation: continue coumadin, daily INR #Generalized weakness PT/OT #DVT ppx on coumadin #Code status DNR/DNI
[2019-04-14] MEDS ORDERED: Potassium Chloride 10 MEQ in Premix Bag 1 BAG IV SCH (17:15)
[2019-04-14] MEDS: [UNRECOGNIZED DRUG - OTHER] PO PRN (19:26)
[2019-04-15] MEDS: Cephalexin 500 MG Cap PO SCH ×4 (00:19→18:03)
[2019-04-15] MEDS: Acetaminophen 325 MG Tab PO PRN ×2 (01:59→10:04)
[2019-04-15] MEDS: Levothyroxine 50 MCG Tab PO SCH (05:48)
[2019-04-15 06:41] LABS: ANION GAP 13.3; CHLORIDE,CL 100 mmol/L (101-111); SODIUM,NA 134 mmol/L (135-145)
[2019-04-15] MEDS: Furosemide 40 MG Tab PO SCH (10:05)
[2019-04-15] MEDS: Docusate Sodium 100 MG Cap PO SCH (10:05)
[2019-04-15] MEDS: Psyllium Husk Powder Sugar Free 5.85 GM Packet PO SCH (10:05)
--- NOTE | 2019-04-15 10:51 | PCM.PN ---
- General Info Date of Service: 04/15/19 Admission Dx/Problem (Free Text): Admission Diagnosis/Problem Admission Diagnosis/Problem CHF, Congestive heart failure Subjective Update: Patient seen and examined She still complains of pain in the right shoulder Bilateral pedal edema is worse 9 Lb weight gain since admission No chest pain, no SOB - Review of Systems General: Reports: No Symptoms HEENT: Reports: No Symptoms Pulmonary: Reports: No Symptoms Cardiovascular: Reports: No Symptoms Gastrointestinal: Reports: No Symptoms Genitourinary: Reports: No Symptoms Musculoskeletal: Reports: Joint Pain, Joint Swelling Skin: Reports: No Symptoms Neurological: Reports: No Symptoms Psychiatric: Reports: No Symptoms - Patient Data Vitals - Most Recent: Last Vital Signs Temp 36.6 C 04/15/19 07:30 Pulse 65 04/15/19 07:30 Resp 18 04/15/19 07:30 BP 109/57 L 04/15/19 07:30 Pulse Ox 100 04/15/19 07:30 Weight - Most Recent: 69.626 kg I&O - Last 24 Hours: Intake & Output 04/14/19 04/15/19 04/15/19 22:59 06:59 14:59 Intake Total 670 225 120 Output Total 400 200 Balance 270 25 120 Lab Results Last 24 Hours: Laboratory Results - last 24 hr 04/15/19 04/15/19 04/15/19 Range/Units 06:05 06:05 06:05 WBC 8.8 (5.0-10.0) 10^3/uL RBC 3.45 L (4.2-5.4) 10^6/uL Hgb 8.5 L (12.0-16.0) g/dL Hct 26.7 L (37.0-47.0) % MCV 77.4 L (80-100) fL MCH 24.6 L (27.0-34.0) pg MCHC 31.8 L (33.0-35.0) g/dL Plt Count 315 (150-450) 10^3/uL PT 20.2 H (9.0-12.0) SEC INR 2.0 H (0.9-1.2) Sodium 134 L (135-145) mmol/L Potassium 4.3 (3.6-5.0) mmol/L Chloride 100 L (101-111) mmol/L Carbon Dioxide 25.0 (21.0-31.0) mmol/L Anion Gap 13.3 BUN 24 H (7-18) mg/dL Creatinine 0.8 (0.6-1.3) mg/dL Est Cr Clr Drug Dosing 42.03 mL/min Estimated GFR (MDRD) > 60 Glucose 115 H (74-105) mg/dL Calcium 8.4 (8.4-10.2) mg/dl Phosphorus 2.6 (2.5-4.6) mg/dL Magnesium 2.0 (1.8-2.5) mg/dL Donnell Results Last 24 Hours: Microbiology 04/12/19 22:00 Urine Culture - Final Urine, Clean Catch Escherichia Coli Med Orders - Current: Current Medications Acetaminophen (Tylenol) 650 mg PO Q4H PRN PRN Reason: Pain/Fever Last Admin: 04/15/19 10:04 Dose: 650 mg Acetaminophen (Tylenol) 650 mg PO TID [facility] Bumetanide (Bumex) 2 mg IVPUSH BIDDIURETIC [facility] Cephalexin (Keflex) 500 mg PO Q6HR [facility] Stop: 04/18/19 00:01 Last Admin: 04/15/19 05:48 Dose: 500 mg Docusate Sodium (Colace) 100 mg PO DAILY [facility] Last Admin: 04/15/19 10:05 Dose: 100 mg Levothyroxine Sodium (Synthroid) 50 mcg PO ACBREAKFAST [facility] Last Admin: 04/15/19 05:48 Dose: 50 mcg Lidocaine (Lidoderm 5%) 700 mg TOP DAILY [facility] Miscellaneous Information (Remove Patch) 1 ea TRDERM BEDTIME [facility] Non-Formulary Medication (Diclofenac Sodium [Voltaren 1% Gel]) 1 applic TOP BID [facility] Flex-He CapsuleOwn (Med) 1 each PO TID PRN PRN Reason: dietary supplement Last Admin: 04/14/19 19:26 Dose: 1 each Ondansetron HCl (Zofran) 4 mg IV Q4H PRN PRN Reason: Nausea/Vomiting Psyllium Husk (Metamucil Sugar Free) 1 pkt PO DAILY [facility] Last Admin: 04/15/19 10:05 Dose: 1 pkt Senna/Docusate Sodium (Senna Plus) 1 tab PO BID [facility] Last Admin: 04/15/19 10:05 Dose: 1 tab Sodium Chloride (Saline Flush) 10 ml FLUSH ASDIRECTED PRN PRN Reason: Keep Vein Open Last Admin: 04/14/19 10:50 Dose: 10 ml Warfarin Sodium (Coumadin) 3 mg PO Fernandez [facility] Last Admin: 04/14/19 13:48 Dose: 3 mg Warfarin Sodium (Coumadin) 6 mg PO MoTuWeThFrSa@1400 [facility] Last Admin: 04/13/19 13:29 Dose: 6 mg Discontinued Medications Enoxaparin Sodium (Lovenox) 40 mg SUBCUT DAILY [facility] Last Admin: 04/13/19 09:37 Dose: Not Given Furosemide (Lasix) 40 mg IVPUSH Q8H [facility] Last Admin: 04/13/19 18:52 Dose: Not Given Furosemide (Lasix) 40 mg PO BIDDIURETIC [facility] Last Admin: 04/15/19 10:05 Dose: 40 mg Potassium Chloride 10 meq/ (Premix) 100 mls @ 100 mls/hr IV Q1H [facility] Stop: 04/14/19 13:59 Last Admin: 04/14/19 17:13 Dose: Not Given Potassium Chloride 10 meq/ (Premix) 100 mls @ 100 mls/hr IV Q1H [facility] Stop: 04/14/19 18:14 Last Admin: 04/14/19 17:11 Dose: 50 mls/hr Flex-He CapsuleOwn (Med) 1 each PO ONETIME ONE Stop: 04/13/19 00:46 Last Admin: 04/13/19 00:40 Dose: 1 each Potassium Chloride (Klor-Con 10) 40 meq PO ONETIME ONE Stop: 04/14/19 09:32 Last Admin: 04/14/19 10:48 Dose: 40 meq Sodium Chloride (Saline Flush) 10 ml FLUSH ASDIRECTED PRN PRN Reason: Keep Vein Open Last Admin: 04/12/19 21:21 Dose: 10 ml Sodium Chloride (Saline Flush) 10 ml FLUSH ASDIRECTED PRN PRN Reason: Keep Vein Open - Exam General: Alert, Oriented HEENT: Pupils Equal, Pupils Reactive Neck: Supple Lungs: Clear to Auscultation, Normal Respiratory Effort Cardiovascular: Regular Rate, Regular Rhythm GI/Abdominal Exam: Normal Bowel Sounds, Soft, Non-Tender, No Organomegaly Extremities: Pedal Edema, Joint Swelling Neurological: No New Focal Deficit Sepsis Event Note - Evaluation Sepsis Screening Result: No Definite Risk - Focused Exam Vital Signs: Vital Signs Temp Pulse Resp BP BP Pulse Ox 04/15/19 07:30 36.6 C 65 18 109/57 L 100 04/15/19 00:00 37.3 C 61 18 101/46 L 99 Date Exam was Performed: 04/15/19 Time Exam was Performed: 10:49 - Problem List Review Problem List Initiated/Reviewed/Updated: Yes - My Orders Last 24 Hours: My Active Orders 04/14/19 10:31 Peripheral IV Care [RC] Peripheral IV Insertion Adult [OM.PC] Routine 04/14/19 14:00 Warfarin [Coumadin] 3 mg PO Fernandez 04/15/19 10:08 Bumetanide [Bumex] 2 mg IVPUSH BIDDIURETIC 04/15/19 10:09 Acetaminophen [Tylenol] 650 mg PO TID 04/15/19 10:15 Lidocaine 5% [Lidoderm 5%] 700 mg TOP DAILY 04/15/19 21:00 Remove Patch 1 ea TRDERM BEDTIME 04/16/19 05:00 INR,PT,PROTHROMBIN TIME [COAG] DAILY - Plan Plan:: #Anemia Stools so far has been brown, no melena stools Likely chronic anemia, AOCD monitor CBC daily #Right shoulder pain, swelling #Right shoulder osteoarthritis #Right rotator cuff injury CT scan result reviewed: severe osteoarthritis, rotator cuff injury Patient doesn't want to have surgery f/u with orthopedics clinic on discharge pain management: lidocaine patch, scheduled tylenol PT/OT #UTI, uncomplicated f/u urine cx oral keflex 500 mg QID #CHF switch to IV bumex given weight gain, increased leg swelling GDMT #Lymphedema chronic R > L 2/2 surgery OT for lymphedema wraps IV lasix #Afib s/p PPM rate control: continue home meds anticoagulation: continue coumadin, daily INR #Generalized weakness PT/OT #DVT ppx on coumadin #Code status DNR/DNI
[2019-04-15] MEDS: Bumetanide 1 MG/4 ML MDV IVPUSH SCH ×2 (11:29→15:33)
[2019-04-15] MEDS: Sodium Chloride 0.9% 10 ML Syringe FLUSH PRN ×2 (11:31→15:33)
[2019-04-15] MEDS: Lidocaine 5% 700 MG Patch TOP SCH (11:32)
[2019-04-15] MEDS: Acetaminophen 325 MG Tab PO SCH ×3 (13:17→20:46)
[2019-04-15] MEDS: REMOVE LIDOCAINE TRDERM SCH (21:35)
[2019-04-16] MEDS: Cephalexin 500 MG Cap PO SCH ×5 (00:22→23:39)
[2019-04-16] MEDS: [UNRECOGNIZED DRUG - OTHER] PO PRN ×2 (00:23→09:08)
[2019-04-16] MEDS: Acetaminophen 325 MG Tab PO PRN (00:45)
[2019-04-16] MEDS: Levothyroxine 50 MCG Tab PO SCH (05:24)
[2019-04-16] MEDS: Bumetanide 1 MG/4 ML MDV IVPUSH SCH ×2 (07:47→14:18)
[2019-04-16] MEDS: Sodium Chloride 0.9% 10 ML Syringe FLUSH PRN ×2 (07:47→14:18)
[2019-04-16] MEDS: Acetaminophen/HYDROcodone 325-5 MG Tab PO SCH ×2 (09:07→22:16)
[2019-04-16] MEDS: Docusate Sodium 100 MG Cap PO SCH (09:08)
[2019-04-16] MEDS: Lidocaine 5% 700 MG Patch TOP SCH (09:08)
[2019-04-16] MEDS: Psyllium Husk Powder Sugar Free 5.85 GM Packet PO SCH (09:09)
--- NOTE | 2019-04-16 10:01 | PN ---
DATE: 04/16/2019 SUBJECTIVE: The patient is an 88-year-old lady with past medical history of chronic lymphedema secondary to history of endometrial cancer, status post surgery and radiation therapy; history of atrial fibrillation, status post permanent pacemaker placement; congestive heart failure; chronic back pain; chronic kidney disease stage 3; who was admitted because of right shoulder pain and CT showed rotator cuff injury with severe osteoarthritis. She was also in congestive heart failure on admission with significantly elevated BNP, and was also noted to have a urinary tract infection and was started on Keflex. The patient this morning still complaining of some back pain as well as shoulder pain, but she denies any chest pain or worsening of shortness of breath and no fever, no chills. OBJECTIVE: Vital Signs: Blood pressure is 106/39, pulse of 61, respirations of 18, temperature of 97.8, saturation is 100% on room air. Heart: Regular rate and rhythm. Normal S1 and S2. No gallops. No rubs. Lungs: Diminished breath sounds on both bases, but no significant crackles. No wheezing. Abdomen: Soft, nontender. Bowel sounds are positive. Extremities: Remarkable for the lymphedema on the right lower extremity and edema on the left leg. LABORATORY DATA: Lab workup this morning, ProTime/INR is 2.4. Most recent lab workup on 04/15/2019, WBC is 8.8, hemoglobin is 8.5, hematocrit is 26.7, platelets 317. Comp panel; sodium is 134, chloride of 100, BUN is 24, glucose is 115. The rest of the panel unremarkable. Urine culture is Escherichia coli, which is susceptible to most antibiotics except ampicillin and Unasyn. MEDICATIONS: Reviewed. PLAN: We will continue with her Bumex IV and rest of her medications. I am going to recheck a BNP today as well as repeat urinalysis to make sure that there is clearing of the urinary tract infection. I am also going to put her on hydrocodone on a scheduled basis as she is still complaining of chronic back pain and right shoulder pain. [facility] /[id number]
[2019-04-16] MEDS: Acetaminophen 325 MG Tab PO SCH ×3 (10:36→22:14)
[2019-04-16] MEDS: REMOVE LIDOCAINE TRDERM SCH (22:16)
[2019-04-17] MEDS: Levothyroxine 50 MCG Tab PO SCH (06:52)
[2019-04-17] MEDS: Cephalexin 500 MG Cap PO SCH ×4 (06:52→23:55)
[2019-04-17] MEDS: Psyllium Husk Powder Sugar Free 5.85 GM Packet PO SCH (10:02)
[2019-04-17] MEDS: Acetaminophen 325 MG Tab PO SCH ×3 (10:03→21:30)
[2019-04-17] MEDS: DULoxetine 30 MG Cap PO SCH (10:03)
[2019-04-17] MEDS: Docusate Sodium 100 MG Cap PO SCH (10:03)
[2019-04-17] MEDS: Bumetanide 1 MG/4 ML MDV IVPUSH SCH ×2 (10:04→14:59)
[2019-04-17] MEDS: Acetaminophen/HYDROcodone 325-5 MG Tab PO SCH ×3 (10:04→21:43)
[2019-04-17] MEDS: Lidocaine 5% 700 MG Patch TOP SCH (10:04)
--- NOTE | 2019-04-17 11:19 | PN ---
DATE: 04/17/2019 SUBJECTIVE: The patient is still complaining of right shoulder pain, but the Lidoderm patch seems to be helping somewhat. The patient did talk with her siblings yesterday and possibly going home and be on hospice, but the patient did not qualify for hospice, and now [facility] is trying to arrange for possible discharge planning to the custodial. The patient today is still feeling down. She mentions she wished she could probably just sleep and not wake up, but otherwise she denies any other significant ongoing complaints. She denies any chest pain, worsening of shortness of breath, abdominal pain, or any other complaints. LABORATORY DATA: Lab workup this morning: INR is 2.9. Followup urinalysis showed clearing of the urinary tract infection. OBJECTIVE: Vital Signs: Blood pressure is 112/48, pulse of 70, respiration of 18, temperature of 97.9, saturation 100%. Heart: Regular rate and rhythm. There is a grade 3/6 systolic ejection murmur. No gallops. No rubs. Lungs: Has diminished breath sounds on both bases, but no significant crackles, no wheezing. Abdomen: Soft, nontender. Bowel sounds positive. Extremities: Still remarkable for the 1 to 2+ bilateral pedal edema. Examination of the right shoulder is still remarkable for the swelling and reproducible tenderness. MEDICATIONS: Reviewed. PLAN: We will discontinue the cephalexin as this has cleared up the urinary tract infection and this will be stopped tomorrow. I am going to start the patient on Cymbalta because of the signs of depression and hopefully this would also help with her aches and pains. Otherwise, we will continue with the rest of her management and will check for basic metabolic panel and CBC in a.m. [facility] /[id number]
[2019-04-17] MEDS: [UNRECOGNIZED DRUG - OTHER] PO PRN ×2 (15:00→21:36)
[2019-04-17] MEDS: REMOVE LIDOCAINE TRDERM SCH (21:28)
[2019-04-17] MEDS: Sodium Chloride 0.9% 10 ML Syringe FLUSH PRN (21:38)
[2019-04-18] MEDS: Levothyroxine 50 MCG Tab PO SCH (06:13)
[2019-04-18 06:58] LABS: CHLORIDE,CL 99 mmol/L (98-107); SODIUM,NA 135 mmol/L (136-145)
[2019-04-18] MEDS: DULoxetine 30 MG Cap PO SCH (08:37)
[2019-04-18] MEDS: Acetaminophen 325 MG Tab PO SCH ×3 (08:39→20:36)
[2019-04-18] MEDS: [UNRECOGNIZED DRUG - OTHER] PO PRN ×3 (08:40→20:43)
[2019-04-18] MEDS: Lidocaine 5% 700 MG Patch TOP SCH (08:42)
[2019-04-18] MEDS: Psyllium Husk Powder Sugar Free 5.85 GM Packet PO SCH (08:42)
[2019-04-18] MEDS: Bumetanide 1 MG/4 ML MDV IVPUSH SCH ×2 (08:42→14:24)
[2019-04-18] MEDS: Docusate Sodium 100 MG Cap PO SCH (08:43)
[2019-04-18] MEDS: Acetaminophen/HYDROcodone 325-5 MG Tab PO SCH ×2 (08:43→20:41)
[2019-04-18] MEDS: Sodium Chloride 0.9% 10 ML Syringe FLUSH PRN (08:46)
--- NOTE | 2019-04-18 11:45 | PN ---
DATE: 04/18/2019 SUBJECTIVE: The patient overall is doing fairly well. She still has the right shoulder pain, but the Lidoderm patch seems to be helping. She denies any chest pain, worsening of shortness of breath, abdominal pain, nor any other significant complaints. OBJECTIVE: Vital Signs: Blood pressure is 113/51, pulse of 66, respirations 16, temperature of 98.5, saturation is 96% on room air. Heart: Regular rate and rhythm. Normal S1 and S2. No gallops. No rubs. Lungs: Diminished breath sounds on both bases, but equal. No crackles. No wheezing. Abdomen: Soft, nontender. Extremities: Remarkable for the lymphedema. MEDICATIONS: Reviewed. PLAN: We will continue with her present management and anticipate discharge to the [facility] in a.m. [facility] /[id number]
[2019-04-18] MEDS ORDERED: Furosemide 40 MG/4 ML VIAL IVPUSH ONE (16:30)
[2019-04-18] MEDS: REMOVE LIDOCAINE TRDERM SCH (20:42)
[2019-04-19] MEDS: Acetaminophen 325 MG Tab PO PRN (03:00)
[2019-04-19] MEDS: [UNRECOGNIZED DRUG - OTHER] PO PRN (03:03)
[2019-04-19] MEDS: Levothyroxine 50 MCG Tab PO SCH (06:05)
[2019-04-19 08:22] VITALS: BP 130/70; PULSE 82
[2019-04-19] MEDS: Acetaminophen 325 MG Tab PO SCH (08:38)
[2019-04-19] MEDS: DULoxetine 30 MG Cap PO SCH (08:40)
[2019-04-19] MEDS: Docusate Sodium 100 MG Cap PO SCH (08:41)
[2019-04-19] MEDS: Lidocaine 5% 700 MG Patch TOP SCH (08:41)
[2019-04-19] MEDS: Bumetanide 1 MG/4 ML MDV IVPUSH SCH (08:41)
[2019-04-19] MEDS: Psyllium Husk Powder Sugar Free 5.85 GM Packet PO SCH (08:41)
[2019-04-19] MEDS: Acetaminophen/HYDROcodone 325-5 MG Tab PO SCH (08:42)
--- NOTE | 2019-04-19 11:37 | PN ---
DATE: 04/19/2019 SUBJECTIVE: The patient received 2 units of packed RBC yesterday and the patient mentioned that she feels better after the blood transfusion and she gets a little bit more strength. She is still complaining of some right shoulder pain but overall she has been doing well. Lab workup this morning is CBC; WBC is 6, hemoglobin is 9.2, and hematocrit is 28. Protime/INR is 3.5. OBJECTIVE: Vital Signs: Blood pressure is 130/70, pulse of 82, respiration of 14, saturation is 99% on room air, temperature of 98.6. Heart: Regular rate and rhythm. Normal S1 and S2. No gallops, no rubs. Lungs: Diminished breath sounds on both bases, but no crackles. No wheezing. Abdomen: Soft, nontender. Bowel sounds positive. Extremities: Remarkable for 1+ bilateral pedal edema. No calf tenderness. No signs of cellulitis. PLAN: [facility] /[id number]
--- NOTE | 2019-04-22 11:56 | DISCH ---
FINAL DIAGNOSES: 1. Right shoulder pain and swelling secondary to rotator cuff syndrome and osteoarthritis. 2. Urinary tract infection. 3. Congestive heart failure. 4. Anemia. 5. Atrial fibrillation status post permanent pacemaker placement. 6. Lymphedema. BRIEF HISTORY OF PRESENT ILLNESS: The patient is an 88-year-old lady with past medical history of chronic lymphedema, systolic congestive heart failure, sick sinus syndrome status post permanent pacemaker placement on Coumadin, chronic back pain, chronic kidney disease, who was admitted because of right shoulder pain and urinary tract infection. She had a CAT scan of the right shoulder, which showed rotator cuff injury with severe osteoarthritis. She was also treated with Keflex for the urinary tract infection and followup urinalysis showed clearing. She was given IV Bumex for her congestive heart failure. During the hospitalizations, the patient's hemoglobin and hematocrit were still dropping despite being on IV diuretics. Because of her history of CHF, she was transfused 2 units of packed RBC, which brought her hemoglobin to 9.2. The patient also felt better after the blood transfusion. The rest of the hospital course was unremarkable. She was still overall feeling weak, and because of this, she will be discharged to [facility]. CONDITION ON DISCHARGE: Improved and stable. She will be resumed on her home medication and we will increase the dose of her Bumex. I will see her for followup in 7 to 10 days for recheck. [facility] /[id number]
== END 2019-04-19 10:40 | DRG 557 ==
LOC: DL.ED 20:53 → DL.MS 22:11 → OBSVTOIN 04-15 11:48
PROVIDERS: ADMIT Hospitalist; ATTEND Internal Medicine
PROC: 30233N1 Transfusion of Nonautologous Red Blood Cells into Peripheral Vein, Percutaneous Approach (ICD-10-PCS; principal; 2019-04-15)
DX: M75.101 Unspecified rotator cuff tear or rupture of right shoulder, not specified as traumatic (principal); I50.43 Acute on chronic combined systolic (congestive) and diastolic (congestive) heart failure; I13.0 Hypertensive heart and chronic kidney disease with heart failure and stage 1 through stage 4 chronic kidney disease, or unspecified chronic kidney disease; N39.0 Urinary tract infection, site not specified; M19.011 Primary osteoarthritis, right shoulder; N18.3 Chronic kidney disease, stage 3 (moderate); E11.22 Type 2 diabetes mellitus with diabetic chronic kidney disease; D64.9 Anemia, unspecified; R53.1 Weakness; H54.7 Unspecified visual loss; I48.91 Unspecified atrial fibrillation; E78.00 Pure hypercholesterolemia, unspecified; Z95.0 Presence of cardiac pacemaker; G89.29 Other chronic pain; M54.9 Dorsalgia, unspecified; F41.9 Anxiety disorder, unspecified; I89.0 Lymphedema, not elsewhere classified; I49.5 Sick sinus syndrome; E03.9 Hypothyroidism, unspecified; Z66 Do not resuscitate; Z98.49 Cataract extraction status, unspecified eye; Z90.49 Acquired absence of other specified parts of digestive tract; Z90.710 Acquired absence of both cervix and uterus; Z85.42 Personal history of malignant neoplasm of other parts of uterus; Z88.8 Allergy status to other drugs, medicaments and biological substances; Z79.01 Long term (current) use of anticoagulants; Z79.890 Hormone replacement therapy; Z79.899 Other long term (current) drug therapy
CPT/HCPCS: 36415 ×4; 71045; 73200; 80048 ×3; 80053; 81001; 83735 ×3; 83880; 84100 ×3; 84484; 85025; 85027 ×3; 85610 ×3; 87086; 87088; 87186; 87804 ×2; 93005; 96365; 96366; 96372; 96375; 99284 ×2; A9270 ×36; G0378 ×3; J1650; J3480 ×4; J3490; 36430; 86850; 86900; 86901; 86920; 86922; 97162-GP; 97165-GO; 97530-GO; 99218; 99225; J1940; P9016